=== PATIENT | female | born 1960 | race Caucasian/White ===

== ENCOUNTER 2022-04-28 11:34 | Inpatient (IN) ==
[2022-04-28 12:15] LABS: Basophils # (auto) 0.03 K/uL (0-0.2); Basophils % (auto) 0.5 %; Eosinophils # (auto) 0.06 K/uL (0-0.50); Eosinophils % (auto) 1.1 %; Hematocrit (blood only) 39.2 % (34.1-44.9); Hemoglobin 12.8 g/dl (12.0-16.0); Immature Granulocytes # (auto) 0.01 K/uL (0.00-0.02); Immature Granulocytes % (auto) 0.2 %; Lymphocytes # (auto) 0.74 K/uL (1.2-3.4); Lymphocytes % (auto) 13.3 %; Mean Corpuscular Hemoglobin 32.2 pg (25.0-34.0); Mean Corpuscular Hgb Conc 32.7 g/dL (32.0-36.0); Mean Corpuscular Volume 98.7 fL (80.0-100.0); Mean Platelet Volume 9.6 fL (9.4-12.3); Monocytes # (auto) 0.48 K/uL (0.24-0.82); Monocytes % (auto) 8.6 %; Neutrophils # (auto) 4.23 K/uL (1.4-6.5); Neutrophils % (auto) 76.3 %; Platelet Count 275 K/uL (130-400); RDW Coefficient of Variation 12.9 % (11.5-14.5); RDW Standard Deviation 46.9 fL (36.4-46.3); Red Blood Count 3.97 M/uL (3.93-5.22); White Blood Count 5.55 K/ul (4.8-10.8)
[2022-04-28 12:47] LABS: Alanine Aminotransferase 17 U/L (7-52); Albumin Globulin Ratio 1.5 (0.9-2); Albumin Level 3.9 gm/dl (3.4-5.0); Alkaline Phosphatase 62 U/L (34-104); Anion Gap 9 (3-11); Aspartate Aminotransferase 24 U/L (13-39); BUN Creatinine Ratio 16.2 (10-20); Bilirubin,Total 0.8 mg/dl (0.2-1.0); Blood Urea Nitrogen 12 mg/dl (6-23); Calcium 9.3 mg/dl (8.5-10.1); Carbon Dioxide 28 mmol/L (21-32); Chloride 109 mmol/L (98-107); Est GFR (African American) 99.9 ml/min; Est GFR (Non-African American) 86.2 ml/min; Globulin 2.6 gm/dl (2.5-4.0); Glucose 100 mg/dl (70-99(Fasting)); Potassium 3.4 mmol/L (3.5-5.1); Sodium 146 mmol/L (136-145); Total Protein 6.5 gm/dl (6.0-8.3)
--- NOTE | 2022-04-28 14:26 | Emergency Department Note ---
Impression & Plan Bilateral leg weakness, Bilateral leg pain, Ambulatory dysfunction, UTI (urinary tract infection) ED Provider Note INFORMANT: Patient ED PROVIDER(S): Valentino Saxena MD CHIEF COMPLAINT: Leg pain difficulty ambulating PLAN: Disposition: Admitted Condition: Good Outpatient prescription management: none Referral: None MEDICAL DECISION MAKING: Patient presented back to the term because leg pain, weakness and difficulty walking. She did not have any back pain or abdominal pain. She was here yesterday and that visit was reviewed. A work-up was initiated. Her CBC and chemistry panels were remarkable. LFTs and troponin were unremarkable as well. Troponin was decreased from yesterday. Her ECG did not show any significant changes compared to yesterday. She still had poor R wave progression. The patient's urinalysis was concerning for infection. Ultrasound imaging of the le gs did not reveal any evidence of DVT or other significant pathology. The patient was treated with oral [place] initially. She was reevaluated and noted that she was feeling somewhat better. I did have the patient undergo an ambulatory trial and it took 2 nurses to help her and get her up out of bed. She was barely able to complete the ambulatory trial. The patient does not feel comfortable going home and with her difficulty ambulating, UTI, and her leg pain I believe it is reasonable for further management in the hospital. Consultation was made with the [facility] Hospitalist service. Patient was given a dose of IV Rocephin. Patient was evaluated in the ER and admitted for further management Triage Nursing notes reviewed and agree them. Vital Signs: reviewed and remarkable for hypertension Differential diagnosis: Infection, dehydration, metabolic abnormality, hypo/hyperglycemia, electrolyte disturbance, anemia, hypoxia, cardiac sources, intracerebral event, toxicologic, neurologic, as well as other pathologies. Diagnostics interpreted by me: ECG: Twelve-lead ECG reveals normal sinus rhythm at 80 bpm. Left axis deviation. LVH. Lateral Q waves present. Poor R wave progression. No ST elevation. Cardiac Monitoring: Cardiac monitoring ordered by me: The patient was placed on continuous cardiac monitoring and observed. It revealed a normal sinus rhythm at 71 beats per minute without ectopy or evidence of dysrhythmia. Imaging studies: Ultrasound imaging negative for acute process. I refer you to the EMR for furth er details. HPI: The patient is a 61 year old female who presents to the Emergency Room with complaints of bilateral leg pain. This started today and is described as the whole leg. The patient also notes the following associated symptoms, chronic knee pain, foot numbness(bilat). The patient has taken no medication for relieving factors. Current pain is rated as 8/10. Pt in ED yesterday and notes was discharged. She had a fall yesterday. Not sure if she passed out. Notes that she was shakey and swelling. Pt denies LOC, headache, fevers, chills, visual changes, neck pain, chest pain, breathing difficulties, nausea, vomiting, abdominal pain, back pain, melena, hematochezia, urinary symptoms, lymphadenopathy, rash, or other complaints. ROS: See above HPI for pertinent positives & negatives. A total of 10 systems re viewed and were otherwise negative. PAST MEDICAL HISTORY:See Below , osteoarthritis, anxiety PAST SURGICAL HISTORY:See Below, FAMILY HISTORY:See Below SOCIAL HISTORY:See Below, uses marijuana HOME MEDICATIONS:See Below ALLERGIES:See Below VITALS:See Below PHYSICAL EXAMINATION: GENERAL: Awake, alert, mildly uncomfortable-appearing, in no distress HENT: Normocephalic, atraumatic. Oropharynx unremarkable. EYES: Normal conjunctiva. Sclera non-icteric. NECK: Inspection normal. Non-tender. Supple. No nuchal rigidity. FROM. No masses. RESPIRATORY: Clear to auscultation. No wheezes. No rales. Normal respiratory effort. CARDIAC: Normal rate. Normal rhythm. No murmurs. No rubs. Extremities warm and well perfused. Pulses equal. No JVD. GI: Soft, non-distended. No tenderness to palpation. No rebound or guarding. No masses. RECTAL: Deferred. MUSCULOSKELETAL: Atraumatic. Chest examination reveals no tenderness. The back is symmetrical on inspection without obvious abnormality. There is no CVA tenderness to palpation. No joint edema. LOWER EXTREMITIES: Calves are equal size bilaterally and non-tender. No edema. No discoloration. NEURO: Normal sensorium. Decreased sensation in both feet, stocking distribution. No other sensory or motor deficits noted. SKIN: No rash or jaundice noted. Valentino Saxena MD Past Med/Surg History Medical History (Updated 04/28/22 @ 20:52 by Valentino Saxena MD) Chronic joint pain DJD (degenerative joint disease) Leg swelling Obesity Surgical History History of Family History Other Asthma Coronary heart disease Social History Smoking Status: Never smoker Hx Alcohol Use: Yes Hx Substance Use: No Feels Safe at Home: Yes Allergies Allergies Allergy/AdvReac Type Severity Reaction Status Date / Time No Known Allergies Allergy Unverified 04/28/22 15:38 Home Meds Home Medications Medication Instructions Recorded Confirmed Medical Marijuana 1 inh inhalation USEASDIRECTD PRN 04/28/22 04/28/22 Anxiety acetaminophen 325 mg tablet 650 mg PO QID PRN Pain 04/28/22 04/28/22 cholecalciferol (vitamin D3) 10 10 mcg PO QAM 04/28/22 04/28/22 mcg (400 unit) capsule (Vitamin D3) multivitamin 1 tab PO QAM 04/28/22 04/28/22 naproxen 250 mg tablet 500 mg PO BID PRN Pain 04/28/22 04/28/22 omega 0-lry-dvv-fish oil 60 mg-90 1 cap PO QAM 04/28/22 04/28/22 mg-500 mg capsule (Fish Oil) Results & Data (ED) Vital Signs Vital Signs - 24 hr 04/28/22 11:37 04/28/22 13:00 04/28/22 15:00 Temperature 36.5 C Temperature Source Temporal Artery Scan Pulse Rate 94 H Pulse Rate [Finger] 78 Respiratory Rate 18 18 18 Respiratory Effort / Characteristics Non-Labored Respiratory Depth Normal Normal Respiratory Pattern Regular Blood Pressure 130/74 Blood Pressure [Right Arm] 144/72 H 166/91 H Blood Pressure Mean 92 Blood Pressure Mean [Right Arm] 96 116 Blood Pressure Position [Right Arm] Lying Pulse Oximetry 95 98 95 Oxygen Delivery Method Room Air Room Air Room Air Sepsis Recent Fever Within 48 Hours No Sepsis New/Unexplained Change in Mental Status No Sepsis Action Taken by Nursing No Action Required 04/28/22 17:00 04/28/22 19:00 04/28/22 20:42 Temperature Temperature Source Pulse Rate Pulse Rate [Finger] 75 80 71 Respiratory Rate 18 18 18 Respiratory Effort / Characteristics Non-Labored Respiratory Depth Normal Respiratory Pattern Regular Blood Pressure Blood Pressure [Right Arm] 169/88 H 159/111 H 182/87 H Blood Pressure Mean Blood Pressure Mean [Right Arm] 115 127 118 Blood Pressure Position [Right Arm] Pulse Oximetry 99 95 95 Oxygen Delivery Method Room Air Room Air Room Air Sepsis Recent Fever Within 48 Hours Sepsis New/Unexplained Change in Mental Status Sepsis Action Taken by Nursing Laboratory Data Result diagrams: 04/28/22 12:04/28/22 12:05 Lab Results 04/28/22 04/28/22 04/28/22 Range/Units 12: 12: 12: WBC 5.55 (4.8-10.8) K/ul RBC 3.97 (3.93-5.22) M/uL Hgb 12.8 (12.0-16.0) g/dl Hct 39.2 (34.1-44.9) % MCV 98.7 (80.0-100.0) fL MCH 32.2 (25.0-34.0) pg MCHC 32.7 (32.0-36.0) g/dL RDW Std Deviation 46.9 H (36.4-46.3) fL RDW Coeff of Da 12.9 (11.5-14.5) % Plt Count 275 (130-400) K/uL MPV 9.6 (9.4-12.3) fL Immature Gran % (Auto) 0.2 % Neut % (Auto) 76.3 % Lymph % (Auto) 13.3 % [place] % (Auto) 8.6 % Eos % (Auto) 1.1 % Baso % (Auto) 0.5 % Neut # (Auto) 4.23 (1.4-6.5) K/uL Lymph # (Auto) 0.74 L (1.2-3.4) K/uL [place] # (Auto) 0.48 (0.24-0.82) K/uL Eos # (Auto) 0.06 (0-0.50) K/uL Baso # (Auto) 0.03 (0-0.2) K/uL Immature Gran # (Auto) 0.01 (0.00-0.02) K/uL Sodium 146 H (136-145) mmol/L Potassium 3.4 L (3.5-5.1) mmol/L Chloride 109 H (98-107) mmol/L Carbon Dioxide 28 (21-32) mmol/L Anion Gap 9 (3-11) BUN 12 (6-23) mg/dl Creatinine 0.74 (0.6-1.2) mg/dl Est Cr Clr Drug Dosing Not Reportable Est GFR ( Amer) 99.9 ml/min Est GFR (Non-Af Amer) 86.2 ml/min BUN/Creatinine Ratio 16.2 (10-20) Glucose 100 H (70-99(Fasting)) mg/dl Calcium 9.3 (8.5-10.1) mg/dl Total Bilirubin 0.8 (0.2-1.0) mg/dl AST 24 (13-39) U/L ALT 17 (7-52) U/L Alkaline Phosphatase 62 (34-104) U/L Troponin I High Sens 15.9 H D (0-14) pg/ml Total Protein 6.5 (6.0-8.3) gm/dl Albumin 3.9 (3.4-5.0) gm/dl Globulin 2.6 (2.5-4.0) gm/dl Albumin/Globulin Ratio 1.5 (0.9-2) Urine Color Urine Appearance (Clear) Urine pH (4.5-7.5) Ur Specific [place] (1.000-1.030) Urine Protein (Negative) Urine Glucose (UA) (Negative) Urine Ketones (Negative) Urine Blood (Negative) Urine Nitrite (Negative) Urine Bilirubin (Negative) Urine Urobilinogen (Negative) Ur Leukocyte Esterase (Negative) Urine WBC (Auto) (0-5) /hpf Urine RBC (Auto) (0-4) /hpf U Hyaline Cast (Auto) (0-5) /lpf U Epithel Cells (Auto) (0-5) /lpf Urine Bacteria (Auto) (Negative) 04/28/22 Range/Units 15:22 WBC (4.8-10.8) K/ul RBC (3.93-5.22) M/uL Hgb (12.0-16.0) g/dl Hct (34.1-44.9) % MCV (80.0-100.0) fL MCH (25.0-34.0) pg MCHC (32.0-36.0) g/dL RDW Std Deviation (36.4-46.3) fL RDW Coeff of Da (11.5-14.5) % Plt Count (130-400) K/uL MPV (9.4-12.3) fL Immature Gran % (Auto) % Neut % (Auto) % Lymph % (Auto) % [place] % (Auto) % Eos % (Auto) % Baso % (Auto) % Neut # (Auto) (1.4-6.5) K/uL Lymph # (Auto) (1.2-3.4) K/uL [place] # (Auto) (0.24-0.82) K/uL Eos # (Auto) (0-0.50) K/uL Baso # (Auto) (0-0.2) K/uL Immature Gran # (Auto) (0.00-0.02) K/uL Sodium (136-145) mmol/L Potassium (3.5-5.1) mmol/L Chloride (98-107) mmol/L Carbon Dioxide (21-32) mmol/L Anion Gap (3-11) BUN (6-23) mg/dl Creatinine (0.6-1.2) mg/dl Est Cr Clr Drug Dosing Est GFR ( Amer) ml/min Est GFR (Non-Af Amer) ml/min BUN/Creatinine Ratio (10-20) Glucose (70-99(Fasting)) mg/dl Calcium (8.5-10.1) mg/dl Total Bilirubin (0.2-1.0) mg/dl AST (13-39) U/L ALT (7-52) U/L Alkaline Phosphatase (34-104) U/L Troponin I High Sens (0-14) pg/ml Total Protein (6.0-8.3) gm/dl Albumin (3.4-5.0) gm/dl Globulin (2.5-4.0) gm/dl Albumin/Globulin Ratio (0.9-2) Urine Color Yellow Urine Appearance Cloudy A (Clear) Urine pH 7.0 (4.5-7.5) Ur Specific [place] 1.027 (1.000-1.030) Urine Protein 1+ H (Negative) Urine Glucose (UA) Negative (Negative) Urine Ketones 2+ H (Negative) Urine Blood 2+ H (Negative) Urine Nitrite Positive A (Negative) Urine Bilirubin Negative (Negative) Urine Urobilinogen Negative (Negative) Ur Leukocyte Esterase 3+ H (Negative) Urine WBC (Auto) >30 H (0-5) /hpf Urine RBC (Auto) 10-30 H (0-4) /hpf U Hyaline Cast (Auto) 10-30 H (0-5) /lpf U Epithel Cells (Auto) >30 H (0-5) /lpf Urine Bacteria (Auto) 4+ H (Negative) Administered Medications Discontinued Medications Hydrocodone Bitart/Acetaminophen (Hydrocodone/Acetamophen 5/325mg Tab) 1 tab PO NOW STA Stop: 04/28/22 14:33 Last Admin: 04/28/22 14:52 Dose: 1 tab Documented By: AC Ceftriaxone Sodium (Rocephin) 2,000 mg in 70 mls @ 140 mls/hr IV NOW STA Stop: 04/28/22 18:12 Last Infusion: 04/28/22 18:47 Dose: 0 mls/hr Documented By: Admin: 04/28/22 18:11 Dose: 140 mls/hr Documented By: AC Imaging Data Radiologist's Impression: Venous Doppler Study 04/28/22 14:32 ULTRASOUND BILATERAL LOWER EXTREMITY VENOUS CLINICAL HISTORY: Leg pain. COMPARISON STUDY: No priors. TECHNIQUE: Real-time, grayscale, and color Doppler sonography of the deep veins of the right and left lower extremity was performed from the inguinal crease to the calf. Compression and augmentation were utilized. FINDINGS: There is no sonographic evidence of deep venous thrombosis identified in the right or left lower extremity. The common femoral, superficial femoral, and popliteal veins are patent and normally compressible bilaterally. The greater saphenous vein and the profunda femoris vein at the junction with the common femoral vein are clear in both legs. The visualized calf veins are patent bilaterally. Soft tissue edema is present within the calves. IMPRESSION: There is no sonographic evidence of deep venous thrombosis identified in the right or left lower extremity. ACT 112: Negative or not required by law. Electronically signed by: Chris Ybarra M.D. 04/28/2022 4:22 PM Discharge Plan Visit Data Chief Complaint: Leg Weakness, Bilateral Stated Complaint: BILATERAL LEG NUMBNESS,PAIN,WEAKNESS ED Provider: Valentino Saxena Discharge Problem: Bilateral leg weakness, Bilateral leg pain, Ambulatory dysfunction, UTI (urinary tract infection) Forms Stand Alone Forms: My [email or web address] Prescriptions Prescriptions: No Action multivitamin Tablet 1 tab PO QAM acetaminophen 325 mg Tablet 650 mg PO QID PRN (Reason: Pain) naproxen 250 mg Tablet 500 mg PO BID PRN (Reason: Pain) cholecalciferol (vitamin D3) [Vitamin D3] 10 mcg (400 unit) Capsule 10 mcg PO QAM omega 3-cpg-qsz-fish oil [Fish Oil] 60-90-500 mg Capsule 1 cap PO QAM Medical Marijuana 1 inh inhalation USEASDIRECTD PRN (Reason: Anxiety) Referrals Referrals: PCP,NO [Primary Care Provider] -
[2022-04-28] MEDS ORDERED: HYDROCODONE/ACETAMOPHEN 5/325MG TAB PO STA (14:32)
--- NOTE | 2022-04-28 16:24 | Ultrasound Report ---
ULTRASOUND BILATERAL LOWER EXTREMITY VENOUS CLINICAL HISTORY: Leg pain. COMPARISON STUDY: No priors. TECHNIQUE: Real-time, grayscale, and color Doppler sonography of the deep veins of the right and left lower extremity was performed from the inguinal crease to the calf. Compression and augmentation wer e utilized. FINDINGS: There is no sonographic evidence of deep venous thrombosis identified in the right or left lower extremity. The common femoral, superficial femoral, and popliteal veins are patent and normally compressible bilaterally. The greater saphenous vein and the profunda femoris vein at the junction w ith the common femoral vein are clear in both legs. The visualized calf veins are patent bilaterally. Soft tissue edema is present within the calves. IMPRESSION: There is no sonographic evidence of deep venous thrombosis identified in the right or lef t lower extremity. ACT 112: Negative or not required by law. Electronically signed by: Chris Ybarra M.D. 04/28/2022 4:22 PM
[2022-04-28 17:14] LABS: Appearance Urine Cloudy (Clear); Bacteria Urine Automated 4+ (Negative); Bilirubin Urine Negative (Negative); Blood Urine 2+ (Negative); Color Urine Yellow; Epithelial Cell Urine Auto >30 /lpf (0-5); Glucose Urine UA Negative (Negative); Ketones Urine 2+ (Negative); Leukocyte Esterase Urine 3+ (Negative); Nitrite Urine Positive (Negative); Protein Urine 1+ (Negative); Specific Gravity Urine 1.027 (1.000-1.030); Urobilinogen Urine Negative (Negative); WBC Urine Automated >30 /hpf (0-5)
[2022-04-28] MEDS ORDERED: cefTRIAXone SODIUM 2,000 MG/70 ML BAG IV STA (17:43)
--- NOTE | 2022-04-28 19:37 | History & Physical Report ---
Date of Service April 28, 2022 Assessment & Plan (1) Fall: (2) Ambulatory dysfunction: (3) Chronic right hip pain: (4) Leg swelling: (5) UTI (urinary tract infection): (6) Elevated troponin: (7) DJD (degenerative joint disease): Plan Fall with ambulatory dysfunction: -2/2 severe DJD - Since pts recent Hip xray showed evidence of R hip osteonecrosis ---- will get CT hip and Ortho consult ----denied any hx of chronic steroid use or IVDU ---- will get A1C -PT/OT eval -continue prn Tylenol and naproxen with prn oxycodone 5mg q6hr for pain scale >6 Chronic leg swelling: -severe pitting edema on exam - Doppler neg for DVT -due to 2 falls + elevated trop + leg swelling will get an echo -started the pt on Lasix 10mg daily (PO) ---- will monitor K+ and Cr Elevated trop: -EKG: NSR, Left axis deviation -trop is better today than yesterday -denied any CP or SOB -admit to tele and will obtain Echo UTI: -will do ceftriaxone -UCx sent Diet: Heart healthy DVT PPx: Lovenox Code Status: FULL CODE Emergency Contact: : Benny [phone] History of Present Illness Chief Complaint: joint pain and fall Primary Care Provider: NO PCP Pt is a 61 y/o F with hx of severe DJD, obesity, b/l Leg swelling, chronic joint pain came to the ER with worsening L knee and R hip pain. Per pt she had 2 mechanical falls yesterday and 2 days ago. Denied any LOC or head trauma. She stated that her L leg gave out. She uses walker to ambulate and recently she is having difficulty ambulating due to pain. She takes naproxen, Tylenol and medical marijuana for pain. Denied any acute CP or SOB. Does have chronic leg swelling which is recently worsened. Denied any hx of ME or CVA. She had a visit with Rheum 3 months ago. At that time Hip xray showed R hip osteonecrosis. Have not seen an ortho yet but sched to follow up with Holcomb Nguyễn @ [facility] HIP xray from 01/2022: 1. Severe right hip degenerative change and evidence of osteonecrosis. Orthopedic consultation is recommended if not already performed. 2. Unremarkable left hip. 3. No acute fracture Allergies Allergy/AdvReac Type Severity Reaction Status Date / Time No Known Allergies Allergy Unverified 04/28/22 15:38 Home Medications Medication Instructions Recorded Confirmed Type Medical Marijuana 1 inh inhalation USEASDIRECTD PRN 04/28/22 04/28/22 History Anxiety acetaminophen 325 mg tablet 650 mg PO QID PRN Pain 04/28/22 04/28/22 History cholecalciferol (vitamin D3) 10 10 mcg PO QAM 04/28/22 04/28/22 History mcg (400 unit) capsule (Vitamin D3) multivitamin 1 tab PO QAM 04/28/22 04/28/22 History naproxen 250 mg tablet 500 mg PO BID PRN Pain 04/28/22 04/28/22 History omega 1-tdr-ezg-fish oil 60 mg-90 1 cap PO QAM 04/28/22 04/28/22 History mg-500 mg capsule (Fish Oil) Past Med/Surg History Medical History (Updated 04/28/22 @ 19:42 by Mauri Ontiveros MD) Chronic joint pain DJD (degenerative joint disease) Leg swelling Obesity Surgical History History of Family History Other Asthma Coronary heart disease Social History Smoking Status: Never smoker Hx Alcohol Use: Yes Hx Substance Use: No Feels Safe at Home: Yes Review of Systems Review of Systems: At least 10 Review of systems were reviewed and all negative except as indicated in HPI Physical Exam Physical Exam: General:.obese pt, NAD HEENT:. Normocephalic and atraumatic, Normal Conjunctiva, EOMI, Sclera is non- icteric Lungs:. No signs of respiratory distress, CTA, no wheezing or crackles Heart:. Normal S1, S2, no murmur Abdominal:.obese abd, Soft, NT MSK:.severe b/l LE pitting edema, pain with b/l hips and legs movement Psych:. AAOx3, normal affect Results & Data Results & Data ([facility]) Vital Signs (Past 12 Hours) Vital Signs Temp Pulse Pulse Resp BP BP Pulse Ox 04/28/22 19:00 80 18 159/111 H 95 04/28/22 17:00 75 18 169/88 H 99 04/28/22 15:00 78 18 166/91 H 95 04/28/22 13:00 18 144/72 H 98 04/28/22 11:37 36.5 C 94 H 18 130/74 95 O2 Del Method 04/28/22 19:00 Room Air 04/28/22 17:00 Room Air 04/28/22 15:00 Room Air 04/28/22 13:00 Room Air 04/28/22 11:37 Room Air Laboratory Results Short CBC 04/28/22 Range/Units 12:05 WBC 5.55 (4.8-10.8) K/ul Hgb 12.8 (12.0-16.0) g/dl Hct 39.2 (34.1-44.9) % Plt Count 275 (130-400) K/uL BMP 04/28/22 12:05 Sodium 146 H Potassium 3.4 L Chloride 109 H Carbon Dioxide 28 BUN 12 Creatinine 0.74 Glucose 100 H Calcium 9.3 Liver Function 04/28/22 Range/Units 12:05 Total Bilirubin 0.8 (0.2-1.0) mg/dl AST 24 (13-39) U/L ALT 17 (7-52) U/L Alkaline Phosphatase 62 (34-104) U/L Albumin 3.9 (3.4-5.0) gm/dl Urine 04/28/22 Range/Units 15:22 Urine Color Yellow Urine Appearance Cloudy A (Clear) Urine pH 7.0 (4.5-7.5) Ur Specific [place] 1.027 (1.000-1.030) Urine Protein 1+ H (Negative) Urine Glucose (UA) Negative (Negative) Diagnostic Findings Venous Doppler Study 04/28/22 14:32 ULTRASOUND BILATERAL LOWER EXTREMITY VENOUS CLINICAL HISTORY: Leg pain. COMPARISON STUDY: No priors. TECHNIQUE: Real-time, grayscale, and color Doppler sonography of the deep veins of the right and left lower extremity was performed from the inguinal crease to the calf. Compression and augmentation were utilized. FINDINGS: There is no sonographic evidence of deep venous thrombosis identified in the right or left lower extremity. The common femoral, superficial femoral, and popliteal veins are patent and normally compressible bilaterally. The greater saphenous vein and the profunda femoris vein at the junction with the common femoral vein are clear in both legs. The visualized calf veins are patent bilaterally. Soft tissue edema is present within the calves. IMPRESSION: There is no sonographic evidence of deep venous thrombosis identified in the right or left lower extremity. ACT 112: Negative or not required by law. Electronically signed by: Chris Ybarra M.D. 04/28/2022 4:22 PM Code Status & VTE Plan VTE Prophylaxis Plan VTE Prophylaxis will be ordered: Yes
[2022-04-28] MEDS ORDERED: oxyCODONE HCL IR 5 MG TAB (IMMEDIATE RELEASE) PO PRN (22:07)
[2022-04-28] MEDS ORDERED: ACETAMINOPHEN 325 MG TAB PO PRN (22:07)
[2022-04-28] MEDS: ENOXAPARIN INJ 40 MG/0.4 ML SYR SQ SCH (22:56)
--- NOTE | 2022-04-28 23:53 | CT Scan Report ---
CT SCAN OF THE RIGHT HIP WITHOUT IV CONTOUR CLINICAL HISTORY: Right hip pain. COMPARISON STUDY: Pelvic CT dated 04/27/2022. TECHNIQUE: CT scan of the right hip is performed to the bony pelvis to be femoral shaft. Images are reviewed in the axial, sagittal, and coronal planes. IV contrast was not administered for this examin ation. A dose lowering technique was utilized adhering to the principles of ALARA. Note that interpr etation is suboptimal without plain film correlate. CT DOSE: 1083.48 mGy.cm FINDINGS: The skeletal structures are osteopenic. There is no evidence of acute fracture involving th e right hip or the visualized right hemipelvis. There is advanced osteoarthritic change of the right hip with complete loss of joint space, bony overgrowth, and mild flattening of the femoral head. Ther e is extensive bony sclerosis and subchondral cyst formation along both sides of the joint. No signif icant joint effusion is seen. There is no evidence of avascular sclerosis of the femoral head. No lyt ic or blastic lesion is seen. Sclerotic change is partially visualized in the right sacroiliac joint. There is generalized atrophy of the regional musculature. No right pelvic sidewall or inguinal adeno cecilia is seen. Excreted IV contrast fills the partially imaged bladder. IMPRESSION: 1. No acute bony abnormality is identified. No change from yesterday's pelvic CT. 2. Osteopenia and advanced arthritic change of the right hip as above. ACT 112: Negative or not required by law. Electronically signed by: Chris Ybarra M.D. 04/28/2022 11:50 PM
[2022-04-29 06:49] LABS: Basophils # (auto) 0.03 K/uL (0-0.2); Basophils % (auto) 0.5 %; Eosinophils # (auto) 0.41 K/uL (0-0.50); Eosinophils % (auto) 6.9 %; Hematocrit (blood only) 34.7 % (34.1-44.9); Hemoglobin 11.2 g/dl (12.0-16.0); Immature Granulocytes # (auto) 0.01 K/uL (0.00-0.02); Immature Granulocytes % (auto) 0.2 %; Lymphocytes # (auto) 1.05 K/uL (1.2-3.4); Lymphocytes % (auto) 17.7 %; Mean Corpuscular Hemoglobin 31.9 pg (25.0-34.0); Mean Corpuscular Hgb Conc 32.3 g/dL (32.0-36.0); Mean Corpuscular Volume 98.9 fL (80.0-100.0); Mean Platelet Volume 9.8 fL (9.4-12.3); Monocytes # (auto) 0.67 K/uL (0.24-0.82); Monocytes % (auto) 11.3 %; Neutrophils # (auto) 3.76 K/uL (1.4-6.5); Neutrophils % (auto) 63.4 %; Platelet Count 235 K/uL (130-400); RDW Standard Deviation 46.9 fL (36.4-46.3); Red Blood Count 3.51 M/uL (3.93-5.22); White Blood Count 5.93 K/ul (4.8-10.8)
[2022-04-29 07:15] LABS: Albumin Globulin Ratio 1.4 (0.9-2); Albumin Level 3.2 gm/dl (3.4-5.0); Bilirubin,Total 0.5 mg/dl (0.2-1.0); Calcium 8.6 mg/dl (8.5-10.1); Est GFR (African American) 113.7 ml/min; Est GFR (Non-African American) 98.1 ml/min; Globulin 2.3 gm/dl (2.5-4.0); Potassium 3.1 mmol/L (3.5-5.1); Total Protein 5.5 gm/dl (6.0-8.3)
[2022-04-29] MEDS: CHOLECALCIFEROL 1,000 UNITS 25 MCG TAB PO SCH (08:04)
[2022-04-29] MEDS: OMEGA-3 (PURIFIED FISH OIL) 1 GM CAP PO SCH (08:04)
[2022-04-29] MEDS: NAPROXEN 250 MG TAB PO PRN (08:06)
[2022-04-29] MEDS: MULTIVITAMIN TAB PO SCH (08:06)
[2022-04-29] MEDS ORDERED: FUROSEMIDE 20 MG TAB PO SCH (09:00)
--- NOTE | 2022-04-29 10:40 | Orthopedic Consultation ---
Date of Consultation April 29, 2022 Assessment & Plan (1) Chronic right hip pain: Plan Pain control Weightbearing as tolerated right lower extremity PT/OT DVT prophylaxis per primary team Medical management Discharge planning. I did have a discussion with the patient regarding her severe hip degenerative joint disease. I discussed with her conservative treatment options including activity modification, therapy as well as medications. I discussed with her that likely a total hip arthroplasty would provide her with relief at some point time. However due to her morbid obesity she is at extremely high risk for complication. She is in understanding of this. I would otherwise recommend referral for follow-up at a tertiary care institution given her morbid obesity and high risk for complication. No further orthopedic intervention at this time. We will sign off History of Present Illness Reason for Consultation: Right hip osteoarthritis Attending Physician: Alberto Pickens MD History of Present Illness 61-year-old female presenting with a chief complaint of right lower extremity pain after sustaining a fall. She notes that she has had an ongoing history of right hip and groin pain. She has previously seen rheumatology who instructed her that she has arthritis and needs to follow-up with orthopedics. She did have a CT scan of the hip obtained in the emergency department which does show severe osteoarthritis of her hip and some changes compatible with avascular necrosis. She also complains of right lower extremity pain and had imaging completed for DVT which was negative. She was admitted to medical service for ambulatory dysfunction and orthopedics was consulted. Allergies Allergy/AdvReac Type Severity Reaction Status Date / Time No Known Allergies Allergy Unverified 04/28/22 15:38 Home Medications Medication Instructions Recorded Confirmed Type Medical Marijuana 1 inh inhalation USEASDIRECTD PRN 04/28/22 04/28/22 History Anxiety acetaminophen 325 mg tablet 650 mg PO QID PRN Pain 04/28/22 04/28/22 History cholecalciferol (vitamin D3) 10 10 mcg PO QAM 04/28/22 04/28/22 History mcg (400 unit) capsule (Vitamin D3) multivitamin 1 tab PO QAM 04/28/22 04/28/22 History naproxen 250 mg tablet 500 mg PO BID PRN Pain 04/28/22 04/28/22 History omega 5-vqd-wxm-fish oil 60 mg-90 1 cap PO QAM 04/28/22 04/28/22 History mg-500 mg capsule (Fish Oil) Patient History Medical History (Updated 04/28/22 @ 20:52 by Valentino Saxena MD) Chronic joint pain DJD (degenerative joint disease) Leg swelling Obesity Surgical History History of Family History Other Asthma Coronary heart disease Social History Smoking Status: Never smoker Hx Alcohol Use: Yes Alcohol type: hard liquor Hx Substance Use: Yes Last Used Substance: Hours (ago) Preferred Language: Danish Communication Ability: Effective Sales Promoter Required: No Beliefs That Will Affect Care: None Current Living Situation: Spouse and Family Current Living Situation Comment: , Daughter, Son in Law Other Information That Helps Us Care for You: No Feels Safe at Home: Yes Safety Concerns: Feels Safe At This Time Assistive Devices: Contacts and Glasses Physical Exam Physical Exam: No acute distress, alert and oriented person place and time. Resting in bed Musculoskeletal: Right lower extremity -There is groin pain and crepitation with range of motion. -Sensation intact to light touch femoral/saphenous/superficial peroneal nerve/deep peroneal nerve/tibial and sural nerve distributions -Fires tibialis anterior/extensor houses longus/gastrocsoleus complex -There is some tenderness over the calf Palpable dorsalis pedis and posterior tibial pulses Results & Data ([facility]) Vital Signs (Past 12 Hours) Vital Signs Temp Pulse Pulse Resp BP Pulse Ox O2 Del Method 04/29/22 07:18 65 04/29/22 06:36 36.6 C 70 20 157/87 H 96 Room Air 04/29/22 02:25 36.4 C L 77 18 150/85 H 93 Room Air 04/28/22 22:49 36.6 C 81 18 144/79 H 93 Room Air Diagnostic Findings CT scan of the right hip shows severe degenerative joint disease there is subchondral sclerosis joint subluxation as well as subchondral cyst formation. No evidence of fracture
--- NOTE | 2022-04-29 11:13 | Electrocardiogram Report ---
Test Reason : Blood Pressure : / mmHG Vent. Rate : 088 BPM Atrial Rate : 088 BPM P-R Int : 186 ms QRS Dur : 090 ms QT Int : 354 ms P-R-T Axes : 027 -43 022 degrees QTc Int : 428 ms Poor data quality, interpretation may be adversely affected Normal sinus rhythm Left axis deviation Moderate voltage criteria for LVH, may be normal variant Poor R wave progression, consider anterior [place] vs. lead placement vs. LVH Abnormal ECG When compared with ECG of 27-APR-2022 17:55, Minimal criteria for Septal infarct are no longer Present Confirmed by Wicho Reese ([id number]) on 04/29/2022 11:13:32 AM Referred By: REFERRED SELF Confirmed By:Wicho Reese
[2022-04-29] MEDS: ENOXAPARIN INJ 40 MG/0.4 ML SYR SQ SCH ×2 (11:47→22:14)
[2022-04-29] MEDS: traMADol HCL 50 MG TABLET PO PRN (11:53)
--- NOTE | 2022-04-29 12:16 | Hospitalist Progress Note ---
Date of Service April 29, 2022 Assessment & Plan (1) Fall: (2) Ambulatory dysfunction: (3) Chronic right hip pain: (4) Leg swelling: (5) UTI (urinary tract infection): (6) Elevated troponin: (7) DJD (degenerative joint disease): Plan Fall with ambulatory dysfunction: Severe right hip osteoarthritis Patient presented to ED on 04/27/2022 with evaluation for back and hip pain after a fall. Discharged from the emergency department but returned back on 04/28/2022 because of leg pain, weakness and difficulty walking CT head did not show any acute abnormality CT abdomen and pelvis unremarkable for acute findings Hip CT shows osteopenia and advance arthritic change of right hip Plan; Orthopedic evaluate the patient today; she had discussion with them about total hip arthroplasty. However, patient does not want to do any surgery at the moment She has a follow-up at [facility] in May PT OT evaluation pending; patient interested in rehab. Pain control with Tylenol and tramadol. Chronic leg swelling: Elevated trop; no delta gap. severe pitting edema on exam Doppler neg for DVT Echo shows EF of 55 to 60% with no wall motion abnormality. Grade 1 diastolic dysfunction present Started on Lasix on admission UTI: Urine culture shows E. coli; await sensitivity. Currently on ceftriaxone. Diet: Heart healthy DVT PPx: Lovenox Code Status: FULL CODE Admission and Anticipated Discharge Date Admission Date: April 28, 2022 Subjective Patient seen and examined at bedside. She reports pain in her right hip intermittently. Review of Systems Review of Systems: All systems reviewed & are unremarkable except as noted in Subjective Physical Exam Physical Exam: Constitutional: Alert orient x3; morbidly obese. Respiratory: normal respiratory effort, lungs clear to auscultation, no wheeze, rales, rhonchi. Normal insp/exp effort, no accessory muscle use Cardiovascular: RRR, no murmur, no edema Vessels: no JVD or carotid bruit Chest: normal inspection of chest Abdomen: normal bowel sounds, soft, nontender, no hepatosplenomegaly Musculoskeletal: ROM painful on right hip. Skin: no rashes, warm and dry normal turgor Neurologic: PERRL, EOMI, accommodation nl, no face palsy, no dysarthria CN's II- XI intact bilaterally and moves all extremities Psychiatric: A+Ox3, euthymic affect Lymphatic: no cervical or axillary lymphadenopathy : deferred Results & Data Results & Data ([facility]) Vital Signs (Past 12 Hours) Vital Signs Temp Pulse Pulse Resp BP BP Pulse Ox 04/29/22 11:22 36.9 C 76 20 165/88 H 93 04/29/22 07:18 65 04/29/22 06:36 36.6 C 70 20 157/87 H 96 04/29/22 02:25 36.4 C L 77 18 150/85 H 93 O2 Del Method 04/29/22 11:22 Room Air 04/29/22 07:18 04/29/22 06:36 Room Air 04/29/22 02:25 Room Air Laboratory Results Laboratory Results WBC 5.93 K/ul (4.8-10.8) 04/29/22 06:24 RBC 3.51 M/uL (3.93-5.22) L 04/29/22 06:24 Hgb 11.2 g/dl (12.0-16.0) L 04/29/22 06:24 Hct 34.7 % (34.1-44.9) 04/29/22 06:24 MCV 98.9 fL (80.0-100.0) 04/29/22 06:24 MCH 31.9 pg (25.0-34.0) 04/29/22 06:24 MCHC 32.3 g/dL (32.0-36.0) 04/29/22 06:24 RDW Std Deviation 46.9 fL (36.4-46.3) H 04/29/22 06:24 RDW Coeff of Da 13.0 % (11.5-14.5) 04/29/22 06:24 Plt Count 235 K/uL (130-400) 04/29/22 06:24 MPV 9.8 fL (9.4-12.3) 04/29/22 06:24 Immature Gran % (Auto) 0.2 % 04/29/22 06:24 Neut % (Auto) 63.4 % 04/29/22 06:24 Lymph % (Auto) 17.7 % 04/29/22 06:24 [place] % (Auto) 11.3 % 04/29/22 06:24 Eos % (Auto) 6.9 % 04/29/22 06:24 Baso % (Auto) 0.5 % 04/29/22 06:24 Neut # (Auto) 3.76 K/uL (1.4-6.5) 04/29/22 06:24 Lymph # (Auto) 1.05 K/uL (1.2-3.4) L 04/29/22 06:24 [place] # (Auto) 0.67 K/uL (0.24-0.82) 04/29/22 06:24 Eos # (Auto) 0.41 K/uL (0-0.50) 04/29/22 06:24 Baso # (Auto) 0.03 K/uL (0-0.2) 04/29/22 06:24 Immature Gran # (Auto) 0.01 K/uL (0.00-0.02) 04/29/22 06:24 Sodium 144 mmol/L (136-145) 04/29/22 06:24 Potassium 3.1 mmol/L (3.5-5.1) L 04/29/22 06:24 Chloride 110 mmol/L (98-107) H 04/29/22 06:24 Carbon Dioxide 29 mmol/L (21-32) 04/29/22 06:24 Anion Gap 5 (3-11) 04/29/22 06:24 BUN 11 mg/dl (6-23) 04/29/22 06:24 Creatinine 0.58 mg/dl (0.6-1.2) L 04/29/22 06:24 Est Cr Clr Drug Dosing 139.0 ml/min 04/29/22 06:24 Est GFR ( Amer) 113.7 ml/min 04/29/22 06:24 Est GFR (Non-Af Amer) 98.1 ml/min 04/29/22 06:24 BUN/Creatinine Ratio 19.0 (10-20) 04/29/22 06:24 Glucose 105 mg/dl (70-99(Fasting)) H 04/29/22 06:24 Calcium 8.6 mg/dl (8.5-10.1) 04/29/22 06:24 Total Bilirubin 0.5 mg/dl (0.2-1.0) 04/29/22 06:24 AST 20 U/L (13-39) 04/29/22 06:24 ALT 15 U/L (7-52) 04/29/22 06:24 Alkaline Phosphatase 53 U/L (34-104) 04/29/22 06:24 Troponin I High Sens 15.9 pg/ml (0-14) H D 04/28/22 12:05 Total Protein 5.5 gm/dl (6.0-8.3) L 04/29/22 06:24 Albumin 3.2 gm/dl (3.4-5.0) L 04/29/22 06:24 Globulin 2.3 gm/dl (2.5-4.0) L 04/29/22 06:24 Albumin/Globulin Ratio 1.4 (0.9-2) 04/29/22 06:24 Urine Color Yellow 04/28/22 15:22 Urine Appearance Cloudy (Clear) A 04/28/22 15:22 Urine pH 7.0 (4.5-7.5) 04/28/22 15:22 Ur Specific [place] 1.027 (1.000-1.030) 04/28/22 15:22 Urine Protein 1+ (Negative) H 04/28/22 15:22 Urine Glucose (UA) Negative (Negative) 04/28/22 15:22 Urine Ketones 2+ (Negative) H 04/28/22 15:22 Urine Blood 2+ (Negative) H 04/28/22 15:22 Urine Nitrite Positive (Negative) A 04/28/22 15: Urine Bilirubin Negative (Negative) 04/28/22 15:22 Urine Urobilinogen Negative (Negative) 04/28/22 15:22 Ur Leukocyte Esterase 3+ (Negative) H 04/28/22 15:22 Urine WBC (Auto) >30 /hpf (0-5) H 04/28/22 15:22 Urine RBC (Auto) 10-30 /hpf (0-4) H 04/28/22 15:22 U Hyaline Cast (Auto) 10-30 /lpf (0-5) H 04/28/22 15:22 U Epithel Cells (Auto) >30 /lpf (0-5) H 04/28/22 15:22 Urine Bacteria (Auto) 4+ (Negative) H 04/28/22 15:22 Impressions Venous Doppler Study 04/28/22 14:32 ULTRASOUND BILATERAL LOWER EXTREMITY VENOUS CLINICAL HISTORY: Leg pain. COMPARISON STUDY: No priors. TECHNIQUE: Real-time, grayscale, and color Doppler sonography of the deep veins of the right and left lower extremity was performed from the inguinal crease to the calf. Compression and augmentation were utilized. FINDINGS: There is no sonographic evidence of deep venous thrombosis identified in the right or left lower extremity. The common femoral, superficial femoral, and popliteal veins are patent and normally compressible bilaterally. The greater saphenous vein and the profunda femoris vein at the junction with the common femoral vein are clear in both legs. The visualized calf veins are patent bilaterally. Soft tissue edema is present within the calves. IMPRESSION: There is no sonographic evidence of deep venous thrombosis identified in the right or left lower extremity. ACT 112: Negative or not required by law. Electronically signed by: Chris Ybarra M.D. 04/28/2022 4:[address] 04/28/22 22:07 CT SCAN OF THE RIGHT HIP WITHOUT IV CONTOUR CLINICAL HISTORY: Right hip pain. COMPARISON STUDY: Pelvic CT dated 04/27/2022. TECHNIQUE: CT scan of the right hip is performed to the bony pelvis to be femoral shaft. Images are reviewed in the axial, sagittal, and coronal planes. IV contrast was not administered for this examination. A dose lowering technique was utilized adhering to the principles of ALARA. Note that interpretation is suboptimal without plain film correlate. CT DOSE: 1083.48 mGy.cm FINDINGS: The skeletal structures are osteopenic. There is no evidence of acute fracture involving the right hip or the visualized right hemipelvis. There is advanced osteoarthritic change of the right hip with complete loss of joint space, bony overgrowth, and mild flattening of the femoral head. There is extensive bony sclerosis and subchondral cyst formation along both sides of the joint. No significant joint effusion is seen. There is no evidence of avascular sclerosis of the femoral head. No lytic or blastic lesion is seen. Sclerotic change is partially visualized in the right sacroiliac joint. There is generalized atrophy of the regional musculature. No right pelvic sidewall or inguinal adenopathy is seen. Excreted IV contrast fills the partially imaged bladder. IMPRESSION: 1. No acute bony abnormality is identified. No change from yesterday's pelvic CT. 2. Osteopenia and advanced arthritic change of the right hip as above. ACT 112: Negative or not required by law. Electronically signed by: Chris Ybarra M.D. 04/28/2022 11:50 PM
[2022-04-29] MEDS ORDERED: POTASSIUM CHLORIDE CRTAB 20 MEQ TABCR PO ONE (15:15)
[2022-04-29] MEDS: cefTRIAXone SODIUM 2,000 MG in DEXTROSE 5% 50 ML IV SCH (17:54)
[2022-04-29] MEDS: ADVANCED PROBIOTIC 1250 MG CAPSULE PO SCH (21:30)
[2022-04-30] MEDS: traMADol HCL 50 MG TABLET PO PRN ×3 (02:19→20:43)
[2022-04-30 06:50] LABS: Estimated Average Glucose 103 mg/dl; Hemoglobin A1C 5.2 % (4.5-5.6)
[2022-04-30 07:43] LABS: BUN Creatinine Ratio 14.8 (10-20); Calcium 8.8 mg/dl (8.5-10.1); Creatinine Clr Calc Pharmacy 150.3 ml/min; Est GFR (African American) 116.4 ml/min; Est GFR (Non-African American) 100.4 ml/min; Potassium 3.5 mmol/L (3.5-5.1)
[2022-04-30] MEDS: ADVANCED PROBIOTIC 1250 MG CAPSULE PO SCH (07:53)
[2022-04-30] MEDS: POTASSIUM CHLORIDE CRTAB 20 MEQ TABCR PO SCH (07:53)
[2022-04-30] MEDS: FUROSEMIDE 20 MG TAB PO SCH (07:54)
[2022-04-30] MEDS: OMEGA-3 (PURIFIED FISH OIL) 1 GM CAP PO SCH (07:54)
[2022-04-30] MEDS: MULTIVITAMIN TAB PO SCH (07:54)
[2022-04-30] MEDS: CHOLECALCIFEROL 1,000 UNITS 25 MCG TAB PO SCH (07:54)
[2022-04-30] MEDS: ENOXAPARIN INJ 40 MG/0.4 ML SYR SQ SCH ×2 (10:05→22:02)
[2022-04-30] MEDS: cefTRIAXone SODIUM 2,000 MG in DEXTROSE 5% 50 ML IV SCH (17:11)
--- NOTE | 2022-04-30 19:12 | Hospitalist Progress Note ---
Date of Service April 30, 2022 Assessment & Plan (1) Fall: (2) Ambulatory dysfunction: (3) Chronic right hip pain: (4) Leg swelling: (5) UTI (urinary tract infection): (6) Elevated troponin: (7) DJD (degenerative joint disease): Plan Fall with ambulatory dysfunction: Severe right hip osteoarthritis Patient presented to ED on 04/27/2022 with evaluation for back and hip pain after a fall. Discharged from the emergency department but returned back on 04/28/2022 because of leg pain, weakness and difficulty walking CT head did not show any acute abnormality CT abdomen and pelvis unremarkable for acute findings Hip CT shows osteopenia and advance arthritic change of right hip Plan; Orthopedic evaluate the patient today; she had discussion with them about total hip arthroplasty. However, patient does not want to do any surgery at the moment She has a follow-up at [facility] in May PT/ OT recommended rehab or SNF Pain control with Tylenol and tramadol. Continue fall precaution Chronic leg swelling: Elevated trop; no delta gap. severe pitting edema on exam Doppler neg for DVT Echo shows EF of 55 to 60% with no wall motion abnormality. Grade 1 diastolic dysfunction present Continue Lasix 20mg PO Monitor BMP while on lasix Hypertension BP elevated Will start on Amlodipine 2.5 mg Continue monitor BP UTI: Urine culture shows E. coli Currently on ceftriaxone. Will follow sensitivity Diet: Heart healthy DVT PPx: Lovenox Code Status: FULL CODE Admission and Anticipated Discharge Date Admission Date: April 28, 2022 Subjective Pt was seen and examined for follow up of fall Sitting in chair with no acute distress Pt said that she is afraid to walk because she does not want to fall She said that she is very anxious Denies any chest pain, palpitation, dizziness and SOB Review of Systems Review of Systems: All systems reviewed & are unremarkable except as noted in Subjective Physical Exam Physical Exam: General- No acute distress Head- atraumatic Eyes- PERRL, EOMI, ENT- oropharynx clear Neck- supple, no JVD Lungs- clear to auscultation Heart- regular rhythm; no murmur Abdomen- normal bowel sounds, soft, nontender Extremities- no calf tenderness, +edema Neuro- alert, oriented x 3; PERRL, EOMI; no facial palsy; no dysarthria Skin- warm & dry Results & Data Results & Data ([facility]) Vital Signs (Past 12 Hours) Vital Signs Temp Pulse Pulse Resp BP Pulse Ox O2 Del Method 04/30/22 15:59 81 04/30/22 15:03 37.0 C 82 20 171/76 H 93 Room Air 04/30/22 11:22 185/106 H Room Air 04/30/22 11:03 36.5 C 81 20 199/70 H 97 Room Air 04/30/22 08:30 Room Air 04/30/22 08:28 36.6 C 74 20 176/83 H 97 Room Air
[2022-04-30] MEDS: amLODIPine BESYLATE 5 MG TAB PO SCH (20:43)
[2022-05-01] MEDS: traMADol HCL 50 MG TABLET PO PRN ×2 (04:57→21:14)
[2022-05-01 07:47] LABS: BUN Creatinine Ratio 13.3 (10-20); Calcium 9.1 mg/dl (8.5-10.1); Est GFR (African American) 112.4 ml/min; Potassium 4.2 mmol/L (3.5-5.1)
[2022-05-01] MEDS ORDERED: PROPOFOL IV EMULSION 10 MG/ML 20 ML VIAL IV ONE (08:14)
[2022-05-01] MEDS ORDERED: LIDOCAINE 2% MPF LOCAL 5 ML VIAL INFIL ONE (08:14)
[2022-05-01] MEDS: OMEGA-3 (PURIFIED FISH OIL) 1 GM CAP PO SCH (08:29)
[2022-05-01] MEDS: ADVANCED PROBIOTIC 1250 MG CAPSULE PO SCH (08:29)
[2022-05-01] MEDS: CHOLECALCIFEROL 1,000 UNITS 25 MCG TAB PO SCH (08:29)
[2022-05-01] MEDS: MULTIVITAMIN TAB PO SCH (08:29)
[2022-05-01] MEDS: POTASSIUM CHLORIDE CRTAB 20 MEQ TABCR PO SCH (08:29)
[2022-05-01] MEDS: FUROSEMIDE 20 MG TAB PO SCH (08:30)
[2022-05-01] MEDS: ENOXAPARIN INJ 40 MG/0.4 ML SYR SQ SCH ×2 (12:45→22:54)
[2022-05-01] MEDS ORDERED: NYSTATIN POWDER 15GM BTL EXT PRN (15:21)
[2022-05-01] MEDS: cefTRIAXone SODIUM 2,000 MG in DEXTROSE 5% 50 ML IV SCH (17:23)
[2022-05-01] MEDS: amLODIPine BESYLATE 5 MG TAB PO SCH (21:04)
--- NOTE | 2022-05-01 23:16 | Hospitalist Progress Note ---
Date of Service May 01, 2022 Assessment & Plan (1) Fall: (2) Ambulatory dysfunction: (3) Chronic right hip pain: (4) Leg swelling: (5) UTI (urinary tract infection): (6) Elevated troponin: (7) DJD (degenerative joint disease): Plan Fall with ambulatory dysfunction: Severe right hip osteoarthritis Patient presented to ED on 04/27/2022 with evaluation for back and hip pain after a fall. Discharged from the emergency department but returned back on 04/28/2022 because of leg pain, weakness and difficulty walking CT head did not show any acute abnormality CT abdomen and pelvis unremarkable for acute findings Hip CT shows osteopenia and advance arthritic change of right hip Plan; Orthopedic evaluate the patient today; she had discussion with them about total hip arthroplasty. However, patient does not want to do any surgery at the moment She has a follow-up at [facility] in May PT/ OT recommended rehab or SNF Pain control with Tylenol and tramadol. Continue fall precaution Chronic leg swelling: Elevated trop; no delta gap. severe pitting edema on exam Doppler neg for DVT Echo shows EF of 55 to 60% with no wall motion abnormality. Grade 1 diastolic dysfunction present Continue Lasix 20mg PO Monitor BMP while on lasix Hypertension BP improved Continue amlodipine 2.5 mg Continue monitor BP UTI: Urine culture shows E. coli Currently on ceftriaxone. Will follow sensitivity Diet: Heart healthy DVT PPx: Lovenox Code Status: FULL CODE Disposition Stable to discharge to SNF or home with home health Admission and Anticipated Discharge Date Admission Date: April 28, 2022 Subjective Pt was seen and examined for follow up of fall Sitting in chair with no acute distress Pt said that she is afraid to walk because she does not want to fall She does not want to go home yet because she is afraid that she might fall Denies any chest pain, palpitation, dizziness and SOB Review of Systems Review of Systems: All systems reviewed & are unremarkable except as noted in Subjective Physical Exam Physical Exam: General- No acute distress Head- atraumatic Eyes- PERRL, EOMI, ENT- oropharynx clear Neck- supple, no JVD Lungs- clear to auscultation Heart- regular rhythm; no murmur Abdomen- normal bowel sounds, soft, nontender Extremities- no calf tenderness, +edema Neuro- alert, oriented x 3; PERRL, EOMI; no facial palsy; no dysarthria Skin- warm & dry Results & Data Results & Data ([facility]) Vital Signs (Past 12 Hours) Vital Signs Temp Pulse Pulse Resp BP BP Pulse Ox 05/01/22 22:00 36.8 C 78 20 148/83 H 93 05/01/22 22:45 05/01/22 19:00 37.2 C 86 20 141/83 H 95 05/01/22 14:15 88 05/01/22 15:59 36.7 C 78 20 164/90 H 97 05/01/22 11:12 37.0 C 78 20 142/86 H 94 O2 Del Method 05/01/22 22:00 Room Air 05/01/22 22:45 Room Air 05/01/22 19:00 Room Air 05/01/22 14:15 05/01/22 15:59 Room Air 05/01/22 11:12 Room Air
[2022-05-02 07:33] LABS: Blood Urea Nitrogen 8 mg/dl (6-23); Calcium 9.3 mg/dl (8.5-10.1); Carbon Dioxide 30 mmol/L (21-32); Chloride 104 mmol/L (98-107); Creatinine Clr Calc Pharmacy 159.7 ml/min; Est GFR (African American) 119.4 ml/min; Glucose 90 mg/dl (70-99(Fasting))
[2022-05-02] MEDS: CHOLECALCIFEROL 1,000 UNITS 25 MCG TAB PO SCH (07:53)
[2022-05-02] MEDS: MULTIVITAMIN TAB PO SCH (07:54)
[2022-05-02] MEDS: FUROSEMIDE 20 MG TAB PO SCH (07:54)
[2022-05-02] MEDS: OMEGA-3 (PURIFIED FISH OIL) 1 GM CAP PO SCH (07:54)
[2022-05-02] MEDS: ADVANCED PROBIOTIC 1250 MG CAPSULE PO SCH (07:54)
[2022-05-02] MEDS: POTASSIUM CHLORIDE CRTAB 20 MEQ TABCR PO SCH (07:55)
[2022-05-02] MEDS: NAPROXEN 250 MG TAB PO PRN (07:55)
[2022-05-02 09:00] LABS: Potassium 4.1 mmol/L (3.5-5.1)
[2022-05-02] MEDS: traMADol HCL 50 MG TABLET PO PRN ×2 (09:58→20:25)
[2022-05-02] MEDS: ENOXAPARIN INJ 40 MG/0.4 ML SYR SQ SCH ×2 (12:14→22:21)
[2022-05-02] MEDS: NAPHAZOLIN/PHENIRAMIN OPH SOLN 75 DROPS/5 ML BTL OP SCH ×2 (14:37→18:20)
--- NOTE | 2022-05-02 16:02 | Hospitalist Progress Note ---
Date of Service May 02, 2022 Assessment & Plan (1) Fall: (2) Ambulatory dysfunction: (3) Chronic right hip pain: (4) Leg swelling: (5) UTI (urinary tract infection): (6) Elevated troponin: (7) DJD (degenerative joint disease): Plan Fall with ambulatory dysfunction: Severe right hip osteoarthritis Patient presented to ED on 04/27/2022 with evaluation for back and hip pain after a fall. Discharged from the emergency department but returned back on 04/28/2022 because of leg pain, weakness and difficulty walking CT head did not show any acute abnormality CT abdomen and pelvis unremarkable for acute findings Hip CT shows osteopenia and advance arthritic change of right hip Plan; Orthopedic evaluate the patient today; she had discussion with them about total hip arthroplasty. However, patient does not want to do any surgery at the moment She has a follow-up at [facility] in May PT/ OT recommended rehab or SNF Pain control with Tylenol and tramadol. Continue fall precaution Chronic leg swelling: Elevated trop; no delta gap. severe pitting edema on exam Doppler neg for DVT Echo shows EF of 55 to 60% with no wall motion abnormality. Grade 1 diastolic dysfunction present Continue Lasix 20mg PO Monitor BMP while on lasix Might consider lasix prn on discharge for edema Hypertension BP improved Continue amlodipine 2.5 mg Continue monitor BP UTI: Urine culture shows E. coli Currently on ceftriaxone #5 clinically stable Diet: Heart healthy DVT PPx: Lovenox Code Status: FULL CODE Disposition Waiting for bed to discharge to [facility] Admission and Anticipated Discharge Date Admission Date: April 28, 2022 Subjective Pt was seen and examined for follow up of fall Sitting in chair with no acute distress She said that she feels ok She said that she woke up with crusty matter in her eyes She is happy because she might get a bed tomorrow to [facility] Denies any chest pain, palpitation, dizziness and SOB Review of Systems Review of Systems: All systems reviewed & are unremarkable except as noted in Subjective Physical Exam Physical Exam: General- No acute distress Head- atraumatic Eyes- PERRL, EOMI, ENT- oropharynx clear Neck- supple, no JVD Lungs- clear to auscultation Heart- regular rhythm; no murmur Abdomen- normal bowel sounds, soft, nontender Extremities- no calf tenderness, +edema Neuro- alert, oriented x 3; PERRL, EOMI; no facial palsy; no dysarthria Skin- warm & dry Results & Data Results & Data ([facility]) Vital Signs (Past 12 Hours) Vital Signs Temp Pulse Pulse Resp BP Pulse Ox O2 Del Method 05/02/22 15:29 80 05/02/22 15:11 95 Room Air 05/02/22 14:53 37.2 C 83 20 142/80 H 91 Room Air 05/02/22 07:45 Room Air 05/02/22 11:22 37.1 C 81 20 151/85 H 93 Room Air 05/02/22 08:03 36.9 C 81 20 162/84 H 93 Room Air 05/02/22 06:57 82 05/02/22 04:00 36.8 C 72 161/91 H 92 Room Air
[2022-05-02] MEDS: cefTRIAXone SODIUM 2,000 MG in DEXTROSE 5% 50 ML IV SCH (18:20)
[2022-05-02] MEDS: amLODIPine BESYLATE 5 MG TAB PO SCH (20:26)
[2022-05-03] MEDS: NAPHAZOLIN/PHENIRAMIN OPH SOLN 75 DROPS/5 ML BTL OP SCH ×4 (00:44→18:29)
[2022-05-03] MEDS: traMADol HCL 50 MG TABLET PO PRN ×3 (05:55→18:28)
[2022-05-03] MEDS: ALBUMIN 25% 12.5 GM/50 ML VIAL IV SCH ×3 (06:29→18:29)
[2022-05-03 08:16] LABS: Basophils # (auto) 0.03 K/uL (0-0.2); Basophils % (auto) 0.7 %; Eosinophils # (auto) 0.61 K/uL (0-0.50); Eosinophils % (auto) 13.4 %; Hematocrit (blood only) 38.1 % (34.1-44.9); Hemoglobin 12.4 g/dl (12.0-16.0); Immature Granulocytes # (auto) 0.01 K/uL (0.00-0.02); Immature Granulocytes % (auto) 0.2 %; Lymphocytes # (auto) 1.49 K/uL (1.2-3.4); Lymphocytes % (auto) 32.7 %; Mean Corpuscular Hemoglobin 31.7 pg (25.0-34.0); Mean Corpuscular Hgb Conc 32.5 g/dL (32.0-36.0); Mean Corpuscular Volume 97.4 fL (80.0-100.0); Monocytes # (auto) 0.63 K/uL (0.24-0.82); Monocytes % (auto) 13.8 %; Neutrophils # (auto) 1.78 K/uL (1.4-6.5); Neutrophils % (auto) 39.2 %; Platelet Count 298 K/uL (130-400); RDW Coefficient of Variation 12.6 % (11.5-14.5); RDW Standard Deviation 44.6 fL (36.4-46.3); Red Blood Count 3.91 M/uL (3.93-5.22); White Blood Count 4.55 K/ul (4.8-10.8)
[2022-05-03 08:37] LABS: BUN Creatinine Ratio 17.7 (10-20); Calcium 9.1 mg/dl (8.5-10.1); Creatinine Clr Calc Pharmacy 128.1 ml/min; Est GFR (African American) 111.2 ml/min; Potassium 4.2 mmol/L (3.5-5.1)
[2022-05-03] MEDS: ADVANCED PROBIOTIC 1250 MG CAPSULE PO SCH (08:41)
[2022-05-03] MEDS: FUROSEMIDE 20 MG TAB PO SCH (08:41)
[2022-05-03] MEDS: MULTIVITAMIN TAB PO SCH (08:42)
[2022-05-03] MEDS: POTASSIUM CHLORIDE CRTAB 20 MEQ TABCR PO SCH (08:42)
[2022-05-03] MEDS: CHOLECALCIFEROL 1,000 UNITS 25 MCG TAB PO SCH (08:42)
[2022-05-03] MEDS: NAPROXEN 250 MG TAB PO PRN ×2 (08:42→16:17)
[2022-05-03] MEDS: OMEGA-3 (PURIFIED FISH OIL) 1 GM CAP PO SCH (08:42)
[2022-05-03] MEDS: ENOXAPARIN INJ 40 MG/0.4 ML SYR SQ SCH ×2 (12:12→23:32)
--- NOTE | 2022-05-03 15:13 | Hospitalist Progress Note ---
Date of Service May 03, 2022 Assessment & Plan (1) Fall: (2) Ambulatory dysfunction: (3) Chronic right hip pain: (4) Leg swelling: (5) UTI (urinary tract infection): (6) Elevated troponin: (7) DJD (degenerative joint disease): Plan Fall with ambulatory dysfunction: Severe right hip osteoarthritis Patient presented to ED on 04/27/2022 with evaluation for back and hip pain after a fall. Discharged from the emergency department but returned back on 04/28/2022 because of leg pain, weakness and difficulty walking CT head did not show any acute abnormality CT abdomen and pelvis unremarkable for acute findings Hip CT shows osteopenia and advance arthritic change of right hip Plan; Orthopedic evaluate the patient on admission; she had discussion with them about total hip arthroplasty. However, patient does not want to do any surgery at the moment She has a follow-up at [facility] in May PT/ OT recommended rehab or SNF Pain control with Tylenol and tramadol. Continue fall precaution Chronic leg swelling: Elevated trop; no delta gap. severe pitting edema on exam Doppler neg for DVT Echo shows EF of 55 to 60% with no wall motion abnormality. Grade 1 diastolic dysfunction present Continue Lasix 20mg PO Monitor BMP while on lasix Might consider lasix prn on discharge for edema Hypertension BP improved Continue amlodipine 2.5 mg Continue monitor BP UTI: Urine culture shows E. coli Currently on ceftriaxone #5 clinically stable Diet: Heart healthy DVT PPx: Lovenox Code Status: FULL CODE Disposition Waiting for bed for Rehab. DC tomorrow am if placement avaiable. Admission and Anticipated Discharge Date Admission Date: April 28, 2022 Subjective Patient seen and examined at bedside. Comfortable; not in any distress. pain is well controlled. Review of Systems Review of Systems: All systems reviewed & are unremarkable except as noted in Subjective Physical Exam Physical Exam: Constitutional: Alert orient x3; morbidly obese. Respiratory: normal respiratory effort, lungs clear to auscultation, no wheeze, rales, rhonchi. Normal insp/exp effort, no accessory muscle use Cardiovascular: RRR, no murmur, no edema Vessels: no JVD or carotid bruit Chest: normal inspection of chest Abdomen: normal bowel sounds, soft, nontender, no hepatosplenomegaly Musculoskeletal: ROM painful on right hip. Skin: no rashes, warm and dry normal turgor Neurologic: PERRL, EOMI, accommodation nl, no face palsy, no dysarthria CN's II- XI intact bilaterally and moves all extremities Psychiatric: A+Ox3, euthymic affect Lymphatic: no cervical or axillary lymphadenopathy : deferred Results & Data Results & Data ([facility]) Vital Signs (Past 12 Hours) Vital Signs Temp Pulse Pulse Resp BP Pulse Ox O2 Del Method 05/03/22 07:00 70 05/03/22 11:14 37.4 C 60 18 157/78 H 97 Room Air 05/03/22 07:00 Room Air 05/03/22 07:44 36.8 C 68 18 141/77 H 96 Room Air Laboratory Results Laboratory Results WBC 4.55 K/ul (4.8-10.8) L 05/03/22 07:13 RBC 3.91 M/uL (3.93-5.22) L 05/03/22 07:13 Hgb 12.4 g/dl (12.0-16.0) 05/03/22 07:13 Hct 38.1 % (34.1-44.9) 05/03/22 07:13 MCV 97.4 fL (80.0-100.0) 05/03/22 07:13 MCH 31.7 pg (25.0-34.0) 05/03/22 07:13 MCHC 32.5 g/dL (32.0-36.0) 05/03/22 07:13 RDW Std Deviation 44.6 fL (36.4-46.3) 05/03/22 07:13 RDW Coeff of Da 12.6 % (11.5-14.5) 05/03/22 07:13 Plt Count 298 K/uL (130-400) 05/03/22 07:13 MPV 10.0 fL (9.4-12.3) 05/03/22 07:13 Immature Gran % (Auto) 0.2 % 05/03/22 07:13 Neut % (Auto) 39.2 % 05/03/22 07:13 Lymph % (Auto) 32.7 % 05/03/22 07:13 [place] % (Auto) 13.8 % 05/03/22 07:13 Eos % (Auto) 13.4 % 05/03/22 07:13 Baso % (Auto) 0.7 % 05/03/22 07:13 Neut # (Auto) 1.78 K/uL (1.4-6.5) 05/03/22 07:13 Lymph # (Auto) 1.49 K/uL (1.2-3.4) 05/03/22 07:13 [place]es # (Auto) 0.63 K/uL (0.24-0.82) 05/03/22 07:13 Eos # (Auto) 0.61 K/uL (0-0.50) H 05/03/22 07:13 Baso # (Auto) 0.03 K/uL (0-0.2) 05/03/22 07:13 Immature Gran # (Auto) 0.01 K/uL (0.00-0.02) 05/03/22 07:13 Sodium 139 mmol/L (136-145) 05/03/22 07:13 Potassium 4.2 mmol/L (3.5-5.1) 05/03/22 07:13 Chloride 104 mmol/L (98-107) 05/03/22 07:13 Carbon Dioxide 29 mmol/L (21-32) 05/03/22 07:13 Anion Gap 6 (3-11) 05/03/22 07:13 BUN 11 mg/dl (6-23) 05/03/22 07:13 Creatinine 0.62 mg/dl (0.6-1.2) 05/03/22 07:13 Est Cr Clr Drug Dosing 128.1 ml/min 05/03/22 07:13 Est GFR ( Amer) 111.2 ml/min 05/03/22 07:13 Est GFR (Non-Af Amer) 96.0 ml/min 05/03/22 07:13 BUN/Creatinine Ratio 17.7 (10-20) 05/03/22 07:13 Glucose 94 mg/dl (70-99(Fasting)) 05/03/22 07:13 Estimat Average Glucose 103 mg/dl 04/29/22 06:24 Hemoglobin A1c 5.2 % (4.5-5.6) 04/29/22 06:24 Calcium 9.1 mg/dl (8.5-10.1) 05/03/22 07:13 Total Bilirubin 0.5 mg/dl (0.2-1.0) 04/29/22 06:24 AST 20 U/L (13-39) 04/29/22 06:24 ALT 15 U/L (7-52) 04/29/22 06:24 Alkaline Phosphatase 53 U/L (34-104) 04/29/22 06:24 Troponin I High Sens 15.9 pg/ml (0-14) H D 04/28/22 12:05 Total Protein 5.5 gm/dl (6.0-8.3) L 04/29/22 06:24 Albumin 3.2 gm/dl (3.4-5.0) L 04/29/22 06:24 Globulin 2.3 gm/dl (2.5-4.0) L 04/29/22 06:24 Albumin/Globulin Ratio 1.4 (0.9-2) 04/29/22 06:24 Urine Color Yellow 04/28/22 15:22 Urine Appearance Cloudy (Clear) A 04/28/22 15: Urine pH 7.0 (4.5-7.5) 04/28/22 15:22 Ur Specific [place] 1.027 (1.000-1.030) 04/28/22 15:22 Urine Protein 1+ (Negative) H 04/28/22 15:22 Urine Glucose (UA) Negative (Negative) 04/28/22 15: Urine Ketones 2+ (Negative) H 04/28/22 15: Urine Blood 2+ (Negative) H 04/28/22 15:22 Urine Nitrite Positive (Negative) A 04/28/22 15: Urine Bilirubin Negative (Negative) 04/28/22 15: Urine Urobilinogen Negative (Negative) 04/28/22 15:22 Ur Leukocyte Esterase 3+ (Negative) H 04/28/22 15:22 Urine WBC (Auto) >30 /hpf (0-5) H 04/28/22 15:22 Urine RBC (Auto) 10-30 /hpf (0-4) H 04/28/22 15:22 U Hyaline Cast (Auto) 10-30 /lpf (0-5) H 04/28/22 15:22 U Epithel Cells (Auto) >30 /lpf (0-5) H 04/28/22 15:22 Urine Bacteria (Auto) 4+ (Negative) H 04/28/22 15:22 Impressions Venous Doppler Study 04/28/22 14:32 ULTRASOUND BILATERAL LOWER EXTREMITY VENOUS CLINICAL HISTORY: Leg pain. COMPARISON STUDY: No priors. TECHNIQUE: Real-time, grayscale, and color Doppler sonography of the deep veins of the right and left lower extremity was performed from the inguinal crease to the calf. Compression and augmentation were utilized. FINDINGS: There is no sonographic evidence of deep venous thrombosis identified in the right or left lower extremity. The common femoral, superficial femoral, and popliteal veins are patent and normally compressible bilaterally. The greater saphenous vein and the profunda femoris vein at the junction with the common femoral vein are clear in both legs. The visualized calf veins are patent bilaterally. Soft tissue edema is present within the calves. IMPRESSION: There is no sonographic evidence of deep venous thrombosis identified in the right or left lower extremity. ACT 112: Negative or not required by law. Electronically signed by: Chris Ybarra M.D. 04/28/2022 4:[address] 04/28/22 22:07 CT SCAN OF THE RIGHT HIP WITHOUT IV CONTOUR CLINICAL HISTORY: Right hip pain. COMPARISON STUDY: Pelvic CT dated 04/27/2022. TECHNIQUE: CT scan of the right hip is performed to the bony pelvis to be femoral shaft. Images are reviewed in the axial, sagittal, and coronal planes. IV contrast was not administered for this examination. A dose lowering technique was utilized adhering to the principles of ALARA. Note that interpretation is suboptimal without plain film correlate. CT DOSE: 1083.48 mGy.cm FINDINGS: The skeletal structures are osteopenic. There is no evidence of acute fracture involving the right hip or the visualized right hemipelvis. There is advanced osteoarthritic change of the right hip with complete loss of joint space, bony overgrowth, and mild flattening of the femoral head. There is extensive bony sclerosis and subchondral cyst formation along both sides of the joint. No significant joint effusion is seen. There is no evidence of avascular sclerosis of the femoral head. No lytic or blastic lesion is seen. Sclerotic change is partially visualized in the right sacroiliac joint. There is generalized atrophy of the regional musculature. No right pelvic sidewall or inguinal adenopathy is seen. Excreted IV contrast fills the partially imaged bladder. IMPRESSION: 1. No acute bony abnormality is identified. No change from yesterday's pelvic CT. 2. Osteopenia and advanced arthritic change of the right hip as above. ACT 112: Negative or not required by law. Electronically signed by: Chris Ybarra M.D. 04/28/2022 11:50 PM
[2022-05-03] MEDS: cefTRIAXone SODIUM 2,000 MG in DEXTROSE 5% 50 ML IV SCH (17:54)
[2022-05-03] MEDS: amLODIPine BESYLATE 5 MG TAB PO SCH (20:47)
[2022-05-04] MEDS: NAPHAZOLIN/PHENIRAMIN OPH SOLN 75 DROPS/5 ML BTL OP SCH ×3 (00:40→21:59)
[2022-05-04] MEDS: ALBUMIN 25% 12.5 GM/50 ML VIAL IV SCH ×2 (00:46→05:49)
[2022-05-04] MEDS: POTASSIUM CHLORIDE CRTAB 20 MEQ TABCR PO SCH (08:15)
[2022-05-04] MEDS: MULTIVITAMIN TAB PO SCH (08:15)
[2022-05-04] MEDS: OMEGA-3 (PURIFIED FISH OIL) 1 GM CAP PO SCH (08:15)
[2022-05-04] MEDS: CHOLECALCIFEROL 1,000 UNITS 25 MCG TAB PO SCH (08:15)
[2022-05-04] MEDS: ADVANCED PROBIOTIC 1250 MG CAPSULE PO SCH (08:15)
[2022-05-04] MEDS: FUROSEMIDE 20 MG TAB PO SCH (08:16)
[2022-05-04] MEDS: traMADol HCL 50 MG TABLET PO PRN ×2 (08:16→18:32)
--- NOTE | 2022-05-04 12:08 | Hospitalist Progress Note ---
Date of Service May 04, 2022 Assessment & Plan (1) Fall: (2) Ambulatory dysfunction: (3) Chronic right hip pain: (4) Leg swelling: (5) UTI (urinary tract infection): (6) Elevated troponin: (7) DJD (degenerative joint disease): Plan Fall with ambulatory dysfunction: Severe right hip osteoarthritis Patient presented to ED on 04/27/2022 with evaluation for back and hip pain after a fall. Discharged from the emergency department but returned back on 04/28/2022 because of leg pain, weakness and difficulty walking CT head did not show any acute abnormality CT abdomen and pelvis unremarkable for acute findings Hip CT shows osteopenia and advance arthritic change of right hip Plan; Orthopedic evaluate the patient on admission; she had discussion with them about total hip arthroplasty. However, patient does not want to do any surgery at the moment She has a follow-up at [facility] in May PT/ OT recommended rehab or SNF Pain control with Tylenol and tramadol. Continue fall precaution Chronic leg swelling: Elevated trop; no delta gap. severe pitting edema on exam Doppler neg for DVT Echo shows EF of 55 to 60% with no wall motion abnormality. Grade 1 diastolic dysfunction present Continue Lasix 20mg PO Monitor BMP while on lasix Might consider lasix prn on discharge for edema Hypertension BP improved Continue amlodipine 2.5 mg Continue monitor BP UTI: Urine culture shows E. coli s/p 5 days of ceftriaxone. Diet: Heart healthy DVT PPx: Lovenox Code Status: FULL CODE Disposition Waiting for bed for Rehab. medically stable for discharge. Admission and Anticipated Discharge Date Admission Date: April 28, 2022 Subjective Patient seen and examined at bedside. She is comfortable; not in any distress. Awaiting placement. Review of Systems Review of Systems: All systems reviewed & are unremarkable except as noted in Subjective Physical Exam Physical Exam: Constitutional: Alert orient x3; morbidly obese. Respiratory: normal respiratory effort, lungs clear to auscultation, no wheeze, rales, rhonchi. Normal insp/exp effort, no accessory muscle use Cardiovascular: RRR, no murmur, no edema Vessels: no JVD or carotid bruit Chest: normal inspection of chest Abdomen: normal bowel sounds, soft, nontender, no hepatosplenomegaly Musculoskeletal: ROM painful on right hip. Skin: no rashes, warm and dry normal turgor Neurologic: PERRL, EOMI, accommodation nl, no face palsy, no dysarthria CN's II- XI intact bilaterally and moves all extremities Psychiatric: A+Ox3, euthymic affect Lymphatic: no cervical or axillary lymphadenopathy : deferred Results & Data Results & Data ([facility]) Vital Signs (Past 12 Hours) Vital Signs Temp Pulse Pulse Resp BP Pulse Ox O2 Del Method 05/04/22 11:14 37.1 C 79 20 139/85 94 Room Air 05/04/22 07:00 Room Air 05/04/22 07:42 37 C 66 20 151/77 H 96 Room Air 05/04/22 07:02 66 05/04/22 03:25 36.8 C 72 20 156/79 H 95 Room Air 05/04/22 01:00 69
[2022-05-04] MEDS: ENOXAPARIN INJ 40 MG/0.4 ML SYR SQ SCH ×2 (12:16→22:00)
[2022-05-04] MEDS ORDERED: MAGNESIUM HYDROXIDE SUSP 30 ML UDC PO ONE (14:10)
[2022-05-04] MEDS: amLODIPine BESYLATE 5 MG TAB PO SCH (20:48)
[2022-05-05] MEDS: NAPHAZOLIN/PHENIRAMIN OPH SOLN 75 DROPS/5 ML BTL OP SCH ×2 (02:05→08:04)
[2022-05-05] MEDS: NAPROXEN 250 MG TAB PO PRN (02:11)
[2022-05-05] MEDS: CHOLECALCIFEROL 1,000 UNITS 25 MCG TAB PO SCH (08:03)
[2022-05-05] MEDS: MULTIVITAMIN TAB PO SCH (08:03)
[2022-05-05] MEDS: OMEGA-3 (PURIFIED FISH OIL) 1 GM CAP PO SCH (08:03)
[2022-05-05] MEDS: ADVANCED PROBIOTIC 1250 MG CAPSULE PO SCH (08:04)
[2022-05-05] MEDS: FUROSEMIDE 20 MG TAB PO SCH (08:04)
[2022-05-05] MEDS: POTASSIUM CHLORIDE CRTAB 20 MEQ TABCR PO SCH (08:04)
[2022-05-05] MEDS: traMADol HCL 50 MG TABLET PO PRN (08:11)
[2022-05-05] MEDS: ENOXAPARIN INJ 40 MG/0.4 ML SYR SQ SCH (10:35)
--- NOTE | 2022-05-05 13:24 | Discharge Summary ---
Date of Service May 05, 2022 Admission HPI Per Admitting Provider Pt is a 61 y/o F with hx of severe DJD, obesity, b/l Leg swelling, chronic joint pain came to the ER with worsening L knee and R hip pain. Per pt she had 2 mechanical falls yesterday and 2 days ago. Denied any LOC or head trauma. She stated that her L leg gave out. She uses walker to ambulate and recently she is having difficulty ambulating due to pain. She takes naproxen, Tylenol and medical marijuana for pain. Denied any acute CP or SOB. Does have chronic leg swelling which is recently worsened. Denied any hx of [place] or CVA. She had a visit with Rheum 3 months ago. At that time Hip xray showed R hip osteonecrosis. Have not seen an ortho yet but sched to follow up with [facility] HIP xray from 01/2022: 1. Severe right hip degenerative change and evidence of osteonecrosis. Orthopedic consultation is recommended if not already performed. 2. Unremarkable left hip. 3. No acute fracture Admission Exam Per Admitting Provider General:.obese pt,NAD HEENT:.Normocephalic and atraumatic, Normal Conjunctiva, EOMI, Sclera is non- icteric Lungs:.No signs of respiratory distress, CTA, no wheezing or crackles Heart:.Normal S1, S2, no murmur Abdominal:.obese abd,Soft, NT MSK:.severe b/l LE pitting edema, pain with b/l hips and legs movement Psych:.AAOx3, normal affect Principal Diagnosis Fall with ambulatory dysfunction: Severe right hip osteoarthritis Hypertension Discharge Exam Constitutional: Alert orient x3; morbidly obese. Respiratory: normal respiratory effort, lungs clear to auscultation, no wheeze, rales, rhonchi. Normal insp/exp effort, no accessory muscle use Cardiovascular: RRR, no murmur, no edema Vessels: no JVD or carotid bruit Chest: normal inspection of chest Abdomen: normal bowel sounds, soft, nontender, no hepatosplenomegaly Musculoskeletal: ROM painful on right hip. Skin: no rashes, warm and dry normal turgor Neurologic: PERRL, EOMI, accommodation nl, no face palsy, no dysarthria CN's II- XI intact bilaterally and moves all extremities Psychiatric: A+Ox3, euthymic affect Lymphatic: no cervical or axillary lymphadenopathy : deferred Discharge Data Allergies Allergy/AdvReac Type Severity Reaction Status Date / Time No Known Allergies Allergy Unverified 04/28/22 15:38 Consultations 04/28/22 22:07 Consult Orthopedic Surgery Routine Ordered Studies 04/28/22 14:32 US leg [US venous doppler LE BI] Stat 04/28/22 22:07 CT hip RT wo con Routine Hospital Course (1) Fall: (2) Ambulatory dysfunction: (3) Chronic right hip pain: (4) Leg swelling: (5) UTI (urinary tract infection): (6) Elevated troponin: (7) DJD (degenerative joint disease): Plan Fall with ambulatory dysfunction: Severe right hip osteoarthritis Patient presented to ED on 04/27/2022 with evaluation for back and hip pain after a fall. Discharged from the emergency department but returned back on 04/28/2022 because of leg pain, weakness and difficulty walking CT head did not show any acute abnormality CT abdomen and pelvis unremarkable for acute findings Hip CT shows osteopenia and advance arthritic change of right hip Plan; Orthopedic evaluate the patient on admission; she had discussion with them about total hip arthroplasty. However, patient does not want to do any surgery at the moment She has a follow-up at [facility] in May Pain control with Tylenol, naproxen and tramadol. Patient discharged to subacute rehab. Chronic leg swelling: Hypertension : Elevated trop; no delta gap. Doppler neg for DVT Echo shows EF of 55 to 60% with no wall motion abnormality. Grade 1 diastolic dysfunction present Started on amlodipine 2.5 mg once daily. Also started on Lasix 20 mg as needed. UTI: Urine culture shows E. coli s/p 5 days of ceftriaxone. Total Time Total Time Spent Total Time Spent (In Minutes): 40 Total Time Includes: Examination of the Patient, Discharge Planning, Medication Reconciliation, Communication With Other Providers and Other Discharge Plan Discharge Items Patient Disposition: Transfer [facility] Reason For Visit: HIP PAIN Discharge Diagnosis: Fall with ambulatory dysfunction: Severe right hip osteoarthritis Hypertension UTI Activity: Resume your previous activity Non-emergency contact: Primary Care Provider Call non-emergency contact if: you have any medication questions and your symptoms worsen Follow-up/Referrals: PCP,NO [Primary Care Provider] - Diet: Regular Addtl Attending Provider Instructions: You are admitted to the hospital with following conditions; 1) Severe right hip osteoarthritis; please follow-up with [facility] and continue physical therapy for now 2) Hypertension, your blood pressure was found to be elevated during the hospitalization. You are started on amlodipine 2.5 mg once daily. You are also started on Lasix 20 mg as needed for leg swelling. 3) Urinary tract infectionyou are treated with IV antibiotic during the hospitalization. Please follow-up with your primary care doctor after discharge from the hospital. Pending Studies at Discharge: No Stand-Alone Forms: My [facility] Skilled Items Patient informed of condition?: Yes DNR: No Discharge Level of Care: Skilled Communicable Disease: No Discharge Prognosis: Stable Lines: None Urinary Catheter: No Medications and DC Order Prescriptions: New amlodipine [Norvasc] 5 mg Tablet 2.5 mg PO HS Qty: 30 0RF tramadol 50 mg Tablet 50 mg PO Q6H PRN (Reason: severe pain (scale score 7-10)) Qty: 10 0RF furosemide 20 mg Tablet 20 mg PO QAM PRN (Reason: leg swelling) Qty: 30 0RF Advanced Probiotic 625 mg (10 billion cell) Capsule 2 cap PO DAILY Qty: 60 0RF Continued multivitamin Tablet 1 tab PO QAM Qty: 30 0RF acetaminophen 325 mg Tablet 650 mg PO QID PRN (Reason: Pain) Qty: 30 0RF naproxen 250 mg Tablet 500 mg PO BID PRN (Reason: Pain) Qty: 30 0RF cholecalciferol (vitamin D3) [Vitamin D3] 10 mcg (400 unit) Capsule 10 mcg PO QAM Qty: 30 0RF omega 5-lag-spx-fish oil [Fish Oil] 60-90-500 mg Capsule 1 cap PO QAM Qty: 30 0RF Discontinued Medical Marijuana 1 inh inhalation USEASDIRECTD PRN (Reason: Anxiety) Discharge Orders: Discharge Order (Routine); Ordered 05/05/22 Ordered By: Alberto Pickens Admission Data Admit Date/Time: 04/28/22 19:22 Attending Provider: Alberto Pickens Admit Provider: Mauri Ontiveros Primary Care Provider: PCP,NO Other Providers: Mervin Zamarripa ; Alberto Pickens ; [facility] ; [facility] ; [place] Other Interventions: Discharge Summary Assessment (RN) Last Done: 05/05/22 11:34
== END 2022-05-05 12:10 | DRG 554 ==
LOC: ED 11:34 → 2N 19:22 → SUATTDRO 19:22 → 2N 21:28

== ENCOUNTER 2024-05-28 07:02 | Inpatient (IN) ==
--- OUTSIDE RECORDS SUMMARY | 2024-05-28 07:08 | External Medical Summary | Summary of Care ---
Author Name Unknown Organization [facility] Address [address] [address] Phone [phone] Care Team Providers Care Oxyacetylene Welder Name Role Phone Arely Lui Primary Care Provider [phone]- [phone] Reason for Visit * Reason Onset Date Comments Advice 04/10/2024 Encounter Details Date Type Department Care Team (Late st Contact Info) Description 04/10/2024 Telephone Family Practice [facility] [address] [place] [address] Arely Lui CRNP [address] [place] [address] Advice Allergies No known active allergiesdocumented as of this encounter (statuses as of 04/10/2024) Medications Acetaminophen ER 650 MG Oral Tablet Extended Release Take 1 Tablet by mouth every 8 hours as needed. Active Multi-Vitamins Oral Tablet Take 1 Tablet by mouth in the morning. Active Krill Oil 500 MG Oral Capsule Take 1 Capsule by mouth in the morning. Active Fluconazole 150 MG Oral Tablet (Diflucan)Indicati ons:Vaginal candidiasis Take 1 tab by mouth for vaginal yeast infection may repeat dose in 1 week if symptoms persist 2 Tablet 12/15/19 23 Active Additional Information Patient not taking.Reported on 03/10/2024 DULoxetine HCl 60 MG Oral Capsule Delayed Release Particles (Cymbalta)Indicati ons:Avascular necrosis of bone of hip, right (HCC),Generalized osteoarthritis of multiple sites Take 1 Capsule by mouth in the morning. 90 Capsule 2 11/01/19 24 Active traMADol HCl 50 MG Oral Tablet (Ultram)Indication s:Avascular necrosis of bone of hip, right (HCC),Generalized osteoarthritis of multiple sites Take 1 Tablet by mouth every 6 hours as needed for Pain, Severe. 90 Tablet 3 12/12/19 24 Active Celecoxib 200 MG Oral Capsule (CeleBREX)Indicati ons:Arthritis pain of hand Take 1 Capsule by mouth in the morning. For pain. 90 Capsule 3 03/10/20 24 Active documented as of this encounter (statuses as of 04/10/2024) Active Problems Problem Noted Date Diagnosed Date Body mass index (BMI) of 40.0 to 44.9 in adult 1 06/08/2022 Overview: Per Obesity protocol Primary osteoarthritis of right hip 12/14/2022 Primary osteoarthritis of both knees 12/14/2022 Avascular necrosis of bone of hip, right 023 Heart murmur 06/26/2022 Lymphedema 06/26/2022 Generalized osteoarthritis of multiple sites 10/2021 documented as of this encounter (statuses as of 04/10/2024) Immunizations Name Administration Dates Next Due Seasonal Influenza, PF, 6 M & above, IM , (FluLaval or Fluzone) 03/21/2023,03/31/2022,03/04/2021 Seasonal Influenza, Trivalen t, (IIV3), PF, (Fluzone) 03/10/2024 TDAP (age 10 and older)(Boostrix) 06/26/2022 Zoster Vaccine Recombinant (Shingrix) 12/14/2022 ,06/26/2022 documented as of this encounter Social History Tobacco Use Types Packs/Day Years Used Date Smoking Tobacco: Never Smokeless Tobacco: Never Alcohol Use Standard Drinks/Week Comments Not Currently 0 (1 standard drink = 0.6 oz pur e alcohol) PHQ-2 Answer Date Recorded PHQ Adult Total Score 0 06/26/2022 Hunger Vital Sign Answer Date Recorded Within the past 12 months, y ou worried that your food would run out before you got the money to buy more. Never true 03/10/20 24 Within the past 12 months, t he food you bought just didn't last and you didn't have money to get more. Never true 03/10/2024 Childcare Answer Date Recorded Do you feel overwhelmed with taking care of a child, family member or friend? No 03/10/2024 Does your family need help f inding childcare? (Household - for ages 0-17 years) Not on file 03/10/2024 Clothing Answer Date Recorded Have you been unable to get clothing when it was really needed? No 03/10/2024 Is your family able to get c lothes or diapers when needed? (Household - for ages 0-17 years) Not on file 03/10/2024 Personal Safety Answer Date Recorded Do you feel unsafe or have concerns for your saf ety? No 03/10/2024 Do you have concerns for you r family's safety? (Household - for ages 0-17 years) Not on file 03/10/2024 Utilities Answer Date Recorded Do you have trouble paying y our heating, water, or electric bill? No 03/10/2024 Is your family able to pay t he heat, water, or electric bill? (Household - for ages 0-17 years) Not on file 03/10/2024 Does your family have access to good internet? (Household - for ages 0-17 years) Not on file 03/10/2024 Employment Status Answer Date Recorded Are you unemployed or without regular income? No 03/10/2024 Does the household have a re gular source of income? (Household - for ages 0-17 years) Not on file 03/10/2024 Social Connections Answer Date Recorded How often do you feel lonely or isolated from th ose around you? Never 03/10/2024 Financial Resource Strain Answer Date R ecorded Do you have any trouble payi ng for your medications, or do you think you might in the future? No 03/10/2024 Does your family have troubl e paying for medicine? (Household - for ages 0-17 years) Not on file 03/10/2024 Transportation Needs Answer Date Record ed Do you have trouble getting a ride to medical visits or work? (Adult - for ages 18 years and over) Not on file 03/10/2024 Does your family have a hard time getting a ride to doctors visits? (Household - for ages 0-17 years) Not on file 03/10/2024 Has lack of transportation k ept you from medical appointments, meetings, work, or from getting things needed for daily living? Check all that apply. No 03/10/2024 Do you (or your family) have trouble finding or paying for a ride (transportation)? (Household - for ages 0-17 years) Not on file 03/10/2024 Housing Stability Answer Date Recorded Do you currently live in a s helter or have no steady place to sleep at night? No 03/10/2024 Do you think you are at risk of becoming homeless? (Adult - for ages 18 years and over) Not on file 03/10/2024 Does your family worry about paying for your home or becoming homeless? (Household - for ages 0-17 years) Not on file 1 Are you homeless or worried that you might be in the future? No 03/10/2024 Are you (or your family) saulo eless or worried that you might be in the future? (Household - for ages 0-17 years) Not on file Food Insecurity Answer Date Recorded Do you need food for this week? No 03/10/2024 Are you able to get enough f ood for your family? (Household - for ages 0-17 years) Not on file 03/10/2024 Does your family need food t his week? (Household - for ages 0-17 years) Not on file 03/10/2024 Do you always have enough fo od for your family? (Household - for ages 0-17 years) Not on file 03/10/2024 Comments No Sex and Gender Information Value Date Recorded Sex Assigned at Female 01/27/2022 10:26 AM EDT Legal Sex Female 11:06 AM EDT Gender Identity Female 01/27/2022 10:26 AM EDT Sexual Orientation Straight 01/27/2022 10 :26 AM EDT documented as of this encounter Miscellaneous Notes * Telephone Encounter - Mariana Modi LPN - 04/10/2024 10:20 AM EST Pt calling, address in another encounter. * Telephone Encounter - Ivelisse Rodriguez OSA - 04/10/2024 10:16 AM EST Reason for patient's call: pt calling to speak with a nurse no information given Caller was transferred to mariana at the nurse line. documented in this encounter Plan of Treatment Upcoming Encounters Date Type Department Care Team (Late st Contact Info) Description 09/08/2024 2:40 PM EDT Office Visit Family [facility] [address] [place] [address] Yenny Marin CRNP [address] [place] [address] Health Maintenance Due Date Last Done Comments HIV Screening 1973 Hepatitis C Screening 1976 Mammogram 1998 Cologuard 2003 Colonoscopy 2003 Colorectal Cancer Screening 2003 Fecal Occult Blood Test 2003 Sigmoidoscopy 2003 Depression Screening 06/26/2023 06/26/2022 DXA Scan 2023 Pneumococcal Vaccine: 65+ Years (1 of 1 - PCV) 2023 COVID-19 Vaccine (1 - season) 2024 Diabetes Screening 08/18/2026 08/19/2023, 0 08/16/2022, 01/30/2022 Lipid Panel 08/17/2027 08/16/2022 DTap/Tdap Vaccines (2 - Td or Tdap) 06/26/2032 06/26/2022 Zoster Vaccines Completed 12/14/2022, 06/26/2022 Influenza Vaccine (FLU shot) Completed , 03/21/2023, 03/31/2022, Additional history exists HPV (Gardasil) Vaccine Aged Out No lo nger eligible based on patient's age to complete this topic Hepatitis B Vaccine Aged Out No longe r eligible based on patient's age to complete this topic MENINGOCOCCAL (MENACTRA/MENVEO) Aged Out No longer eligible based on patient's age to complete this topic documented as of this encounter Medical Devices Not on filedocumented as of this encounter Care Teams Oxyacetylene Welder Relationship Specialty Start Date End Date Arely Lui CRNP [address] [place] [address] PCP - General Nurse Practitioner 01/15/23 documented as of this encounter
--- OUTSIDE RECORDS SUMMARY | 2024-05-28 07:08 | External Medical Summary | Summary of Care ---
Author Name Unknown Organization [facility] Address [address] [facility] [place] [address] Phone [phone] Care Team Providers Care Acct Exec Name Role Phone Arely Tee Primary Care Provider [phone]- [phone] Reason for Visit * Reason Onset Date Comments Medication Refill 12/09/2023 Encounter Details Date Type Department Care Team (Late st Contact Info) Description 12/09/[address] [facility] [address] [place] [address] Arely Tee CRNP [address] [place] [address] Avascular necrosis of bone of hip, right (HCC); Generalized osteoarthritis of multiple sites Allergies No known active allergiesdocumented as of this encounter (statuses as of 12/12/2023) Medications Medication Sig Dispensed Refills Start Date End Date Status Acetaminophen ER 650 MG Oral Tablet Extended Release Take 1 Tablet by mouth every 8 hours as needed. Active Multi-Vitamins Oral Tablet Take 1 Tablet by mouth in the morning. Active Vitamin D 25 MCG (1000 UT) Oral Tablet Take by mouth. Active Krill Oil 500 MG Oral Capsule Take 1 Capsule by mouth in the morning. Active Fluconazole 150 MG Oral Tablet (Diflucan)Indications :Vaginal candidiasis Take 1 tab by mouth for vaginal yeast infection may repeat dose in 1 week if symptoms persist 2 Tablet 12/14/2022 Active Topiramate 25 MG Oral Tablet (topAMAX) Take 1 Tablet by mouth in the morning. 30 Tablet 5 07/15/2023 Active DULoxetine HCl 60 MG Oral Capsule Delayed Release Particles (Cymbalta)Indications :Avascular necrosis of bone of hip, right (HCC),Generalized osteoarthritis of multiple sites Take 1 Capsule by mouth in the morning. 90 Capsule 2 11/01/2023 Active documented as of this encounter (statuses as of 12/12/2023) Active Problems Problem Noted Date Diagnosed Date Body mass index (BMI) of 40.0 to 44.9 in adult 1 06/08/2022 Overview: Per Obesity protocol Primary osteoarthritis of right hip 12/14/2022 Primary osteoarthritis of both knees 12/14/2022 Avascular necrosis of bone of hip, right 023 Heart murmur 06/26/2022 Lymphedema 06/26/2022 Generalized osteoarthritis of multiple sites 10/2021 documented as of this encounter (statuses as of 12/12/2023) Immunizations Name Administration Dates Next Due Seasonal Influenza, PF, 6 M & above, IM , (FluLaval or Fluzone) 03/21/2023,03/31/2022,03/04/2021 TDAP (age 10 and older)(Boostrix) 06/26/2022 Zoster [...] the money to buy more. Never true 12/14/19 23 Within the past 12 months, t he food you bought just didn't last and you didn't have money to get more. Never true 12/13/2022 Childcare Answer Date Recorded Do you feel overwhelmed with taking care of a child, family member or friend? No 12/13/2022 Does your family need help f inding childcare? (Household - for ages 0-17 years) Not on file 12/13/2022 Clothing Answer Date Recorded Have you been unable to get clothing when it was really needed? No 12/13/2022 Is your family able to get c lothes or diapers when needed? (Household - for ages 0-17 years) Not on file 12/13/2022 Personal Safety Answer Date Recorded Do you feel unsafe or have concerns for your saf ety? No 12/13/2022 Do you have concerns for you r family's safety? (Household - for ages 0-17 years) Not on file 12/13/2022 Utilities Answer Date Recorded Do you have trouble paying y our heating, water, or electric bill? No 12/13/2022 Is your family able to pay t he heat, water, or electric bill? (Household - for ages 0-17 years) Not on file 12/13/2022 Does your family have access to good internet? (Household - for ages 0-17 years) Not on file 12/13/2022 Employment Status Answer Date Recorded Are you unemployed or without regular income? No 12/13/2022 [facility] the [facility] have a [facility]? (Household - for ages 0-17 years) Not on file 12/13/2022 Social Connections Answer Date Recorded How often do you feel lonely or isolated from th ose around you? Rarely 12/13/2022 Financial Resource Strain Answer Date R ecorded Do you have any trouble payi ng for your medications, or do you think you might in the future? No 12/13/2022 Does your family have troubl e paying for medicine? (Household - for ages 0-17 years) Not on file 12/13/2022 Transportation Needs Answer Date Record ed READ ONLY Do you have troubl e getting a ride to medical visits or work? Never True 12/13/2022 Does your family have a hard time getting a ride to doctors visits? (Household - for ages 0-17 years) Not on file 12/13/2022 Has lack of transportation k ept you from medical appointments, meetings, work, or from getting things needed for daily living? Check all that apply. (Adult - for ages 18 years and over) Not on file 12/13/2022 Do you (or your family) have trouble finding or paying for a ride (transportation)? (Household - for ages 0-17 years) Not on file 12/13/2022 Housing Stability Answer Date Recorded Do you currently live in a s helter or have no steady place to sleep at night? No 12/13/2022 READ ONLY Do you think you a re at risk of becoming homeless? No 12/13/2022 Does your family worry about paying for your home or becoming homeless? (Household - for ages 0-17 years) Not on file 0 12/13/2022 Are you homeless or worried that you might be in the future? (Adult - for ages 18 years and over) Not on file Are you (or your family) saulo eless or worried that you might be in the future? (Household - for ages 0-17 years) Not on file Food Insecurity Answer Date Recorded Do you need food for this week? No 12/13/2022 Are you able to get enough f ood for your family? (Household - for ages 0-17 years) Not on file 12/13/2022 Does your family need food t his week? (Household - for ages 0-17 years) Not on file 12/13/2022 Do you always have enough fo od for your family? (Household - for ages 0-17 years) Not on file 12/13/2022 Sex and Gender Information Value Date Recorded Sex Assigned at Female 01/27/2022 10:26 AM EDT Gender Identity Female 01/27/2022 10:26 AM EDT Sexual Orientation Straight 01/27/2022 10 :26 AM EDT Job Start Date Occupation Industry Not on file Not on file Not on file documented as of this encounter Miscellaneous Notes * Telephone Encounter - Arely Tee CRNP - 12/12/2023 11:37 AM EDTRefused Prescriptions: Disp Refills traMADol HCl 50 MG Oral Tablet (Ultram) 90 Tab*0 Sig: Take 1 Tablet by mouth every 6 hours as needed for Pain, Severe.Refused By: Amol TEE for Refusal: Duplicate Request * Telephone Encounter - Mervin Quiñonez [facility] - 12/11/2023 9:07 AM EDTPending Prescriptions: Disp Refills traMADol HCl 50 MG Oral Tablet (Ultram) 90 Tab*0 Sig: Take 1 Tablet by mouth every 6 hours as needed for Pain, Severe. * Telephone Encounter - Mervin Quiñonez [facility] - 12/11/2023 9:07 AM EDT I have reviewed the patients controlled substance dispensing history in the Prescription Drug Monitoring Program in compliance with the [facility] regulations before prescribing a controlled substance. PDMP checked on 12/11/2023. Pending Prescriptions: Disp Refills traMADol HCl 50 MG Oral Tablet (Ultram) 90 Tab*0 Sig: Take 1 Tablet by mouth every 6 hours as needed for Pain, Severe. Last Visit: 03/21/2023 (in office), 07/11/2023 (telemedicine) Next Visit: Visit date not found Date medication was last filled: 11/07/2023 Date medication is due for refill: 11/28/2023 Pharmacy: [id number] [facility] Is this request for a controlled substance? Yes and Urine Drug Screen Not completed Toxicology results: No results found for this or any previous visit. Please approve if appropriate. Thanks, Mervin Quiñonez Pharm.D. Clinical Pharmacist [facility] [phone] 12/11/2023, 9:07 AM documented in this encounter Plan of Treatment Upcoming Encounters Date Type Department Care Team (Late st Contact Info) Description 01/07/2024 12:20 PM EDT Telemedicine Nutrition & Weight Management, [facility] [address] [place] [address] Tesha Muñoz PA-C [address] [place] [address] Health Maintenance Due Date Last Done Comments HIV Screening 1973 Hepatitis C Screening 1976 Mammogram 1998 Cologuard 2003 Colonoscopy 2003 Colorectal Cancer Screening 2003 Fecal Occult Blood Test 2003 Sigmoidoscopy 2003 COVID-19 Vaccine ( - 2022-24 season) 2023 Depression Screening 06/26/2023 06/26/2022 DXA Scan 2023 Pneumococcal Vaccine: 65+ Years (1 of 1 - PCV) 2023 Influenza Vaccine (FLU shot) (#1) 2024 03/21/2023, 03/31/2022, 03/04/2021, Additional history exists Diabetes Screening 08/18/2026 08/19/2023, 0 08/16/2022, 01/30/2022 Lipid Panel 08/17/2027 08/16/2022 DTaP,Tdap,and Td Vaccines (2 - Td or Tdap) 06/26/2032 06/26/2022 Zoster Vaccines Completed 12/14/2022, 06/26/2022 HPV (Gardasil) Vaccine Aged Out No lo nger eligible based on patient's age to complete this topic Hepatitis B Vaccine Aged Out No longe r eligible based on patient's age to complete this topic MENINGOCOCCAL (MENACTRA/MENVEO) Aged Out No longer eligible based on patient's age to complete this topic documented as of this encounter Medical Devices Not on filedocumented as of this encounter Visit Diagnoses Diagnosis Avascular necrosis of bone of hip, right (HCC) Generalized osteoarthritis of multiple sites Generalized osteoarthrosis, involving multiple sites documented in this encounter Care Teams Acct Exec Relationship Specialty Start Date End Date Arely Tee CRNP [address] [place] [address] PCP - General Nurse Practitioner 01/15/23 documented as of this encounter
--- OUTSIDE RECORDS SUMMARY | 2024-05-28 07:08 | External Medical Summary | Summary of Care ---
Author Name Unknown Organization [facility] Address [address] [facility] [place] [address] Phone [phone] Care Team Providers Care Motor Vehicles Supervisor Name Role Phone Arely Lui Primary Care Provider +1- [phone] Encounter Details Date Type Department Care Team (Late st Contact Info) Description 01/07/2024 12:20 PM EDT Telemedicine Nutrition & Weight Management, [facility] [address] [place] [address] Tesha Muñoz PA-C [address] [place] [address] Morbid obesity due to excess calories (HCC)* Allergies No known active allergiesdocumented as of this encounter (statuses as of 01/07/2024) Medications Medication Sig Dispensed Refills Start Date [...] the morning. 90 Capsule 2 11/01/2023 Active traMADol HCl 50 MG Oral Tablet (Ultram)Indications:A vascular necrosis of bone of hip, right (HCC),Generalized osteoarthritis of multiple sites Take 1 Tablet by mouth every 6 hours as needed for Pain, Severe. 90 Tablet 3 12/12/2023 Active documented as of this encounter (statuses as of 01/07/2024) Active Problems Problem Noted Date Diagnosed Date Body mass index (BMI) of 40.0 to 44.9 in adult 1 06/08/2022 Overview: Per Obesity protocol Primary osteoarthritis of right hip 12/14/2022 Primary osteoarthritis of both knees 12/14/2022 Avascular necrosis of bone of hip, right 023 Heart murmur 06/26/2022 Lymphedema 06/26/2022 Generalized osteoarthritis of multiple sites 10/2021 documented as of this encounter (statuses as of 01/07/2024) Immunizations Name Administration Dates Next Due Seasonal [...] y our heating, water, or electric bill? (Adult - for ages 18 years and over) Not on file 12/21/2023 Is your family able to pay t he heat, water, or electric bill? (Household - for ages 0-17 years) Not on file 12/21/2023 Does your family have access to good internet? (Household - for ages 0-17 years) Not on file 12/21/2023 Employment Status Answer Date Recorded Are you unemployed or without regular income? No 12/13/2022 Does the household have a [facility] source of income? (Household - for ages 0-17 years) Not on file 12/13/2022 Social Connections Answer Date Recorded How often do you feel lonely or isolated from those around you? (Adult - for ages 18 years and over) Not on file 12/21/2023 Financial Resource Strain Answer Date R ecorded [...] on file documented as of this encounter Progress Notes * Tesha Muñoz PA-C - 01/07/2024 12:12 PM EDT Comprehensive Weight Management Clinic Note Patient location: HOME. I was in a hospital or clinic location. After connecting through televideo, patient was verified with two unique identifiers. Patient (or authorized legal enrollment eligibility representative) wasthen informed that this was a Telemedicine visit and being conducted confidentially over secure lines. Methods to assure confidentiality were taken. Patient acknowledged consent and understanding of privacy and security of the Telemedicine visit. The patient agreed to participate. There are no exam notes on file for this visit. Cleo Vasquez presents in follow up to the comprehensive weight management clinic. The patient is a 63 year old female Wt Readings from Last 6 Encounters: 03/21/23 118.4 kg (261 lb) 02/07/23 115.7 kg (255 lb) 09/12/22 126.2 kg (278 lb 4.8 oz) 06/26/22 132 kg (291 lb) Patient is receiving ongoing education regarding dietary and physical modifications for weight loss. - Initial clinic visit 08/16/22. Weight at that time was 291 lbs - Today's weight: 275lbs 01/07/24 -here to discuss restarting GLP1 medications -interested in [place] pay option 07/15/23 -off Ozempic since April d/t coverage -still needs BMI 40 for hip surgery 02/07/23 -on Ozemipc 1.0mg -tolerating well -will likely be losing coverage ([facility]) in Nov -needs BMI 40 for hip surgery 09/25/22 Behavior class No questions Is on ozempic 0.25mg weekly No change in medications or medical history 09/12/22 -Nutrition class -on ozempic 0.25mg -tolerating well, smaller portions Today's Visit 08/16/22 - Overall goal: 235lbs - BMI 40 to get hip replacement - Wt hx: has always struggled - Highest wt as adult: 325 lbs - Lowest wt as adult: 200lbs - Barriers: genetics, hip and knee pain limits exercise - Family weight hx: sister with bariatric surgery Patient Active Problem List Diagnosis Generalized osteoarthritis of multiple sites Avascular necrosis of bone of hip, right ([facility]) Heart murmur Lymphedema Primary osteoarthritis of right hip Primary osteoarthritis of both knees Body mass index (BMI) of 40.0 to 44.9 in adult ([facility]) Review of Systems: Review of Systems Gastrointestinal: Negative for abdominal pain, constipation, diarrhea, nausea and vomiting. Musculoskeletal: Positive for arthralgias and back pain. All other systems reviewed and are negative. Current Medications: Current Outpatient Medications Medication Sig Dispense Refill Acetaminophen ER 650 MG Oral Tablet Extended Release Take 1 Tablet by mouth every 8 hours as needed. Multi-Vitamins Oral Tablet Take 1 Tablet by mouth in the morning. Vitamin D 25 MCG (1000 UT) Oral Tablet Take by mouth. Krill Oil 500 MG Oral Capsule Take 1 Capsule by mouth in the morning. Fluconazole 150 MG Oral Tablet (Diflucan) Take 1 tab by mouth for vaginal yeast infection may repeat dose in 1 week if symptoms persist 2 Tablet 0 Topiramate 25 MG Oral Tablet (topAMAX) Take 1 Tablet by mouth in the morning. 30 Tablet 5 DULoxetine HCl 60 MG Oral Capsule Delayed Release Particles (Cymbalta) Take 1 Capsule by mouth in the morning. 90 Capsule 2 traMADol HCl 50 MG Oral Tablet (Ultram) Take 1 Tablet by mouth every 6 hours as needed for Pain, Severe. 90 Tablet 3 No current facility-administered medications for this visit. Water intake: yes Prescribed diet: [id number] Calorie Controlled Current diet: Breakfast-- banana and protein shake Snack-- skips Lunch-- apple, Smart Pop 80 Drew Snack-- skips Dinner-- eggs OR crockpot meal Snack-- Ratio yogurt and pretzels Drinks-- water, Coke zero Meals Away from Home-- 1x per week Food logs: No Type of exercise: ADL There were no vitals taken for this visit. PHYSICAL EXAMINATION: General: Patient is well appearing and in no acute distress. Skin: No obvious rashes. HEENT: Head is atraumatic, normocephalic. Cardiovascular: Regular rate and effort of breathing. No conversational dyspnea. No cyanosis. Neuro: No obvious focal neurological deficits. Psych: Appropriate mood and affect. Assessment and Plan: Abnormal weight gain / There is no height or weight on file to calculate BMI. / Morbid obesity : - Would like to proceed with medical management - Barriers are consistency. - Motivators are feeling better overall, avoiding/reducing co-morbid conditions. - The patient was encouraged to to avoid all fruit juices and regular sodas, consume at least 64 ounces of water per day, keep food logs and get weighed on a weekly basis. They were encouraged to increase physical activity as prescribed. - Handouts regarding nutrition and physical activity were provided, as appropriate. 1. Keep a food log. If you bite it, write it! Apps like Tamr or KitNipBoxpal Calorie goal: 1500 2. Drink 48-64 ounces of non-caloric beverages per day. No fruit juices or regular soda Try crystal light, propel, zero calorie flavored water, plain water 3. Goal of 30 minutes of exercise 5 days per week (150 minutes per week--can be divided up however you would like) Aim for aerobic activity and muscle strengthening activities 4. Increase fruit and vegetable servings to 5-6 per day. 1/2 of your plate should be fruits and vegetables 5. Eat 100-200 calories within 1-2 hours of awakening, and every 4 - 6 hours while awake. (3 meals with snacks in between) Choose 100 calorie or less snacks, protein snacks 7. Weight yourself weekly and follow trend over time (day to day weight fluctuations can be discouraging) 8. Decrease starches like bread, pasta, cereal, potatoes and corn. Aim for of your plate Try substitutions like zoodles, lentil pasta, cauliflower mashed potatoes, whole grain foods, quinoa Limit junk/processed foods Chips, pretzels, cookies, cakes, sweets White bread/rolls/wraps/bagels, white rice 9. Increase protein to feel full longer (1/4 of your plate) Diagnoses and all orders for this visit: Morbid obesity due to excess calories (HCC) -did well with Ozempic - unable to restart d/t current Geissinger criteria -recommend seeing alternative provider to discuss [employer] pay [employer] or Zepbound options -didn't tolerate topamax - nausea -consider adding wellbutrin -discussed restarting surgery program - not interested at this time -avoid phentermine, naltrexone - on tramadol -has made great dietary changes so far Abnormal weight gain Avascular necrosis of bone of hip, right (HCC) -needs BMI 40 for hip replacement -goal weight is 233lbs Lymphedema -following with wound care -increase protein to goal 80-100g per day The patient agreed to try the plan as discussed and return in PRN. They were encouraged to call or send a patient portal message in the meantime with any questions or concerns prior to their next clinic visit. I spent a total of 20 minutes on the date of service in preparation, delivery, and documentation ofthe care provided to Cleo Vasquez excluding any time spent in the performance of separately billed services. This included but was no limited to providing counseling about the benefits of weight loss, about their nutritional status, detailed explanations about calorie count, types of nutrients to choose, and composition of the meals. Motivational interview provided in order to prepare the patient to achieve future goals. Tesha Muñoz PA-C documented in this encounter Plan of Treatment Health Maintenance Due Date Last Done Comments [...] as of this encounter Visit Diagnoses Diagnosis Morbid obesity due to excess calories (HCC)- Primary documented in this encounter Care Teams Motor Vehicles Supervisor Relationship Specialty Start Date End Date Arely Lui CRNP [address] [place] [address] PCP - General Nurse Practitioner 01/15/23 documented as of this encounter
--- OUTSIDE RECORDS SUMMARY | 2024-05-28 07:08 | External Medical Summary | Summary of Care ---
Author Name Unknown Organization [facility] Address [address] [facility] [place] [address] Phone [phone] Care Team Providers Care Sales Department Clerk Name Role Phone Arely Lui Primary Care Provider +1- [phone] Reason for Visit * Reason Onset Date Comments FYI 02/26/2024 High BP Encounter Details Date Type Department Care Team (Late st Contact Info) Description 02/26/2024 Telephone Family Practice [facility] [address] [place] [address] Arely Lui CRNP [address] [place] [address] FYI (High BP) Allergies No known active allergiesdocumented as of this encounter (statuses as of 03/03/2024) Medications Medication Sig Dispensed Refills Start Date [...] as of this encounter (statuses as of 03/03/2024) Active Problems Problem Noted Date Diagnosed Date Body mass index (BMI) of 40.0 to 44.9 in adult 1 06/08/2022 Overview: Per Obesity protocol Primary osteoarthritis of right hip 12/14/2022 Primary osteoarthritis of both knees 12/14/2022 Avascular necrosis of bone of hip, right 023 Heart murmur 06/26/2022 Lymphedema 06/26/2022 Generalized osteoarthritis of multiple sites 10/2021 documented as of this encounter (statuses as of 03/03/2024) Immunizations Name Administration Dates Next Due Seasonal [...] No 12/13/2022 Does the household have a [facility] source of income? (Household - for ages [...] encounter Miscellaneous Notes * Telephone Encounter - Jennifer Sheth OSA - 03/03/2024 9:02 AM EDT Spoke w/ pt she already hs an appt set up with altaf on 03/10 wants to keep it as is * Telephone Encounter - Arely Lui CRNP - 02/27/2024 6:04 PM EDT Please schedule acute appointment * Telephone Encounter - Juliette Burt OSA - 02/26/2024 1:55 PM EDT Yasmeen called due to the pt's blood pressure being 160/100. All other vitals were fine. She wanted tomake PCP clinic aware of the reading. If appt is needed please advise. documented in this encounter Plan of Treatment Upcoming Encounters Date Type Department Care Team (Late st Contact Info) Description 03/10/2024 2:40 PM EDT Office Visit Family Practice [facility] [address] [place] [address] Altaf Marin CRNP [address] [place] [address] Health Maintenance Due Date Last Done Comments HIV Screening 1973 Hepatitis C Screening 1976 Mammogram 1998 Cologuard 2003 Colonoscopy 2003 Colorectal Cancer Screening 2003 Fecal Occult Blood Test 2003 Sigmoidoscopy 2003 Depression Screening 06/26/2023 06/26/2022 DXA Scan 2023 Pneumococcal Vaccine: 65+ Years (1 of 1 - PCV) 2023 COVID-19 Vaccine ( - 2023- season) 2024 Influenza Vaccine (FLU shot) (#1) 2024 03/21/2023, [...] filedocumented as of this encounter Care Teams Sales Department Clerk Relationship Specialty Start Date End Date Arely Lui CRNP [address] [place] [address] PCP - General Nurse Practitioner 01/15/23 documented as of this encounter
--- OUTSIDE RECORDS SUMMARY | 2024-05-28 07:08 | External Medical Summary | Summary of Care ---
Author Name Unknown Organization [facility] Address [address] [facility] [place] [address] Phone [phone] Care Team Providers Care Medical Consultant Name Role Phone Arely Lui Primary Care Provider +1- [phone] Reason for Visit * Reason Onset Date Comments FYI 02/26/2024 High BP Encounter Details Date Type Department Care Team (Late st Contact Info) Description 02/26/2024 Telephone Family Practice [facility] [address] [place] [address] Arely Lui CRNP [address] [place] [address] FYI (High BP) Allergies No known active allergiesdocumented as of this encounter (statuses as of 02/28/2024) Medications Medication Sig Dispensed Refills Start Date [...] as of this encounter (statuses as of 02/28/2024) Active Problems Problem Noted Date Diagnosed Date Body mass index (BMI) of 40.0 to 44.9 in adult 1 06/08/2022 Overview: Per Obesity protocol Primary osteoarthritis of right hip 12/14/2022 Primary osteoarthritis of both knees 12/14/2022 Avascular necrosis of bone of hip, right 023 Heart murmur 06/26/2022 Lymphedema 06/26/2022 Generalized osteoarthritis of multiple sites 10/2021 documented as of this encounter (statuses as of 02/28/2024) Immunizations Name Administration Dates Next Due Seasonal [...] No 12/13/2022 Does the household have a [facility] source [facility] income? (Household - for ages [...] Miscellaneous Notes * Telephone Encounter - Arely Lui CRNP [...] 03/10/2024 2:40 PM EDT Office Visit Family [facility] [address] [place] [address] Yenny Marin CRNP [address] [place] [address] Health Maintenance Due Date Last Done Comments HIV Screening 1973 Hepatitis C Screening 1976 Mammogram 1998 Cologuard 2003 Colonoscopy 2003 Colorectal Cancer Screening 2003 Fecal Occult Blood Test 2003 Sigmoidoscopy 2003 Depression Screening 06/26/2023 06/26/2022 DXA Scan 2023 Pneumococcal Vaccine: 65+ Years (1 of 1 - PCV) 2023 COVID-19 Vaccine (1 - season) 2024 Influenza Vaccine (FLU shot) (#1) [...] filedocumented as of this encounter Care Teams Medical Consultant Relationship Specialty Start Date End Date Arely Lui CRNP [address] [place] [address] PCP - General Nurse Practitioner 01/15/23 documented as of this encounter
--- OUTSIDE RECORDS SUMMARY | 2024-05-28 07:08 | External Medical Summary | Summary of Care ---
Author Name Unknown Organization [facility] Address [address] [facility] [place] [address] Phone [phone] Care Team Providers Care Jeweler Apprentice Name Role Phone Arely Tee Primary Care Provider +1- [phone] Reason for Visit * Reason Onset Date Comments Medication Refill 05/04/2024 Encounter Details Date Type Department Care Team (Late st Contact Info) Description 05/04/2024 Refill Family Practice [facility] [address] [place] [address] Arely Tee CRNP [address] [place] [address] Avascular necrosis of bone of hip, right (HCC); Generalized osteoarthritis of multiple sites Allergies No known active allergiesdocumented as of this encounter (statuses as of 05/12/2024) Medications Acetaminophen ER 650 MG Oral Tablet [...] week if symptoms persist 2 Tablet 12/15/19 Active Additional Information Patient not taking.Reported on 03/10/2024 DULoxetine HCl 60 MG Oral Capsule Delayed Release Particles (Cymbalta)Indicati ons:Avascular necrosis of bone of hip, right (HCC),Generalized osteoarthritis of multiple sites Take 1 Capsule by mouth in the morning. 90 Capsule 2 11/01/19 24 Active Celecoxib 200 MG Oral Capsule (CeleBREX)Indicati ons:Arthritis pain of hand Take 1 Capsule by mouth in the morning. For pain. 90 Capsule 3 03/10/20 24 Active traMADol HCl 50 MG Oral Tablet (Ultram)Indication s:Avascular necrosis of bone of hip, right (HCC),Generalized osteoarthritis of multiple sites Take 1 Tablet by mouth every 6 hours as needed for Pain, Severe. 90 Tablet 04/10/20 24 024 Discontin ued(Refil l) documented as of this encounter (statuses as of 05/12/2024) Active Problems Problem Noted Date Diagnosed Date Body mass index (BMI) of 40.0 to 44.9 in adult 1 06/08/2022 Overview: Per Obesity protocol Primary osteoarthritis of right hip 12/14/2022 Primary osteoarthritis of both knees 12/14/2022 Avascular necrosis of bone of hip, right 023 Heart murmur 06/26/2022 Lymphedema 06/26/2022 Generalized osteoarthritis of multiple sites 10/2021 documented as of this encounter (statuses as of 05/12/2024) Immunizations Name Administration Dates Next Due Seasonal [...] 03/10/2024 Does the household have a re lar source of income? (Household - for ages [...] Telephone Encounter - Arely Tee CRNP - 05/12/2024 11:18 AM ESTRefused Prescriptions: Disp Refills traMADol HCl 50 MG Oral Tablet (Ultram) 90 Tab*0 Sig: Take 1 Tablet by mouth every 6 hours as needed for Pain, Severe.Refused By: Reymundo TEEon for Refusal: Duplicate Request * Telephone Encounter - Nicole Pham [facility] - 05/05/2024 4:15 PM ESTPending Prescriptions: Disp Refills traMADol HCl 50 MG Oral Tablet (Ultram) 90 Tab*0 Sig: Take 1 Tablet by mouth every 6 hours as needed for Pain, Severe. * Telephone Encounter - Nicole Pham [facility] - 05/05/2024 4:15 PM EST I have reviewed the patients controlled substance dispensing history in the Prescription Drug Monitoring Program in compliance with the [facility] regulations before prescribing a controlled substance. PDMP checked on 05/05/2024. Pending Prescriptions: Disp Refills traMADol HCl 50 MG Oral Tablet (Ultram) 90 Tab*0 Sig: Take 1 Tablet by mouth every 6 hours as needed for Pain, Severe. Last Visit: 03/10/2024 (in office), 07/11/2023 (telemedicine) Next Visit: 09/08/2024 Date medication was last filled: 04/10 Date medication is due for refill: 05/02 Pharmacy: [id number] [place] Is this request for a controlled substance? Yes and Urine Drug Screen Not completed Toxicology results: No results found for this or any previous visit. Please approve if appropriate. Thank you, Nicole Pham, PharmD Clinical Pharmacist [facility] ([facility] [phone] 05/05/2024, 4:15 PM documented in this encounter Plan of Treatment Upcoming Encounters Date Type Department Care Team (Late st Contact Info) Description 09/08/2024 2:40 PM EDT Office Visit Family [facility] [address] [place] [address] Yenny Marin CRNP [address] [place] [address] Health Maintenance Due Date Last Done Comments [...] sites documented in this encounter Care Teams Jeweler Apprentice Relationship Specialty Start Date End Date Arely Tee CRNP [address] [place] [address] PCP - General Nurse Practitioner 01/15/23 documented as of this encounter
--- OUTSIDE RECORDS SUMMARY | 2024-05-28 07:08 | External Medical Summary | Summary of Care ---
Author Name Unknown Organization [facility] Address [address] [facility] [place] [address] Phone [phone] Care Team Providers Care Admissions Counselor Name Role Phone Arely Lui Primary Care Provider +1- [phone] Reason for Visit * Reason Comments eRx-Medication Refill Encounter Details Date Type Department Care Team (Late st Contact Info) Description 12/12/2023 Refill Family Practice [facility] [address] [place] [address] Arely Lui CRNP [address] [facility] [place] [address] Avascular necrosis of bone of hip, right (HCC); Generalized osteoarthritis of multiple sites Allergies No known active allergiesdocumented as of this encounter (statuses as of 12/13/2023) Medications Medication Sig Dispensed Refills Start Date [...] as of this encounter (statuses as of 12/13/2023) Active Problems Problem Noted Date Diagnosed Date Body mass index (BMI) of 40.0 to 44.9 in adult 1 06/08/2022 Overview: Per Obesity protocol Primary osteoarthritis of right hip 12/14/2022 Primary osteoarthritis of both knees 12/14/2022 Avascular necrosis of bone of hip, right 023 Heart murmur 06/26/2022 Lymphedema 06/26/2022 Generalized osteoarthritis of multiple sites 10/2021 documented as of this encounter (statuses as of 12/13/2023) Immunizations Name Administration Dates Next Due Seasonal [...] No 12/13/2022 Does the household have a [facility] source of income? (Household - for ages [...] encounter Miscellaneous Notes * Telephone Encounter - Michelle Caro [facility] - 12/13/2023 5:38 AM EDT Refused Prescriptions: Disp Refills traMADol HCl 50 MG Oral Tablet (Ultram) 90 Tab*0 Sig: TAKE ONE TABLET BY MOUTH EVERY 6 HOURS NEEDED FOR SEVERE PAINRefused By: MICHELLE CARO for Refusal: Duplicate Request documented in this encounter Plan of Treatment Upcoming Encounters Date Type Department Care Team (Late st Contact Info) Description 01/07/2024 12:20 PM EDT Telemedicine Nutrition & Weight Management, [facility] [address] [place] [address] Tesha Muñoz PA-C [address] [place] [address] Health Maintenance Due Date Last Done Comments [...] sites documented in this encounter Care Teams Admissions Counselor Relationship Specialty Start Date End Date Arely Lui CRNP [address] [facility] [place] [address] PCP - General Nurse Practitioner 01/15/23 documented as of this encounter
--- OUTSIDE RECORDS SUMMARY | 2024-05-28 07:08 | External Medical Summary | Summary of Care ---
Author Name Unknown Organization [facility] Address [address] [address] Phone [phone] Care Team Providers Care Director Of Planning Name Role Phone Arely Lui Primary Care Provider [phone]- [phone] Reason for Visit * Reason Onset Date Comments Acute Past 3 weeks inc reased BP, home health reported to pt concern. Medication Administration 03/10/2024 Flu an d/or Pneumo Inj Encounter Details Date Type Department Care Team (Latest Contact Info) Description 03/10/2024 2:40 PM EDT Office Visit Family Practice [facility] [address] [place] [address] Yenny Marin CRNP [address] [place] [id number] Labile hypertension*; Need for prophylactic vaccination and inoculation against influenza; Arthritis pain of hand; Lymphedema; Generalized osteoarthritis of multiple sites Allergies No known active allergiesdocumented as of this encounter (statuses as of 03/11/2024) Medications Medication Sig Dispensed Refills Start Date End Date Status Acetaminophen ER 650 MG Oral Tablet Extended Release Take 1 Tablet by mouth every 8 hours as needed. Active Multi-Vitamins Oral Tablet Take 1 Tablet by mouth in the morning. Active Krill Oil 500 MG Oral Capsule Take 1 Capsule by mouth in the morning. Active Fluconazole 150 MG Oral Tablet (Diflucan)Indicatio ns:Vaginal candidiasis Take 1 tab by mouth for vaginal yeast infection may repeat dose in 1 week if symptoms persist 2 Tablet 12/14/2022 Active Additional Information Patient not taking.Reported on 03/10/2024 DULoxetine HCl 60 MG Oral Capsule Delayed Release Particles (Cymbalta)Indicatio ns:Avascular necrosis of bone of hip, right (HCC),Generalized osteoarthritis of multiple sites Take 1 Capsule by mouth in the morning. 90 Capsule 2 11/01/2023 Active traMADol HCl 50 MG Oral Tablet (Ultram)Indications :Avascular necrosis of bone of hip, right (HCC),Generalized osteoarthritis of multiple sites Take 1 Tablet by mouth every 6 hours as needed for Pain, Severe. 90 Tablet 3 12/12/2023 Active Celecoxib 200 MG Oral Capsule (CeleBREX)Indicatio ns:Arthritis pain of hand Take 1 Capsule by mouth in the morning. For pain. 90 Capsule 3 03/10/2024 Active Vitamin D 25 MCG (1000 UT) Oral Tablet Take by mouth. 4 Discontinu ed(Medicat ion List Clean Up) Topiramate 25 MG Oral Tablet (topAMAX) Take 1 Tablet by mouth in the morning. 30 Tablet 5 07/15/2023 4 Discontinu ed(Medicat ion List Clean Up) documented as of this encounter (statuses as of 03/11/2024) Active Problems Problem Noted Date Diagnosed Date Body mass index (BMI) of 40.0 to 44.9 in adult 1 06/08/2022 Overview: Per Obesity protocol Primary osteoarthritis of right hip 12/14/2022 Primary osteoarthritis of both knees 12/14/2022 Avascular necrosis of bone of hip, right 023 Heart murmur 06/26/2022 Lymphedema 06/26/2022 Generalized osteoarthritis of multiple sites 10/2021 documented as of this encounter (statuses as of 03/11/2024) Immunizations Name Administration Dates Next Due Seasonal [...] ages 0-17 years) Not on file 03/10/2024 Sex and Gender Information Value Date Recorded Sex Assigned at Female 01/27/2022 10:26 AM EDT Gender Identity Female 01/27/2022 10:26 AM EDT Sexual Orientation Straight 01/27/2022 10 :26 AM EDT Job Start Date Occupation Industry Not on file Not on file Not on file documented as of this encounter Last Filed Vital Signs Vital Sign Reading Time Taken Comments Blood Pressure 122/76 03/10/2024 2:51 PM EDT Pulse 98 03/10/2024 2:51 PM EDT Temperature 36.8 C (98.2 F) 03/10/2024 2:51 PM ED T Respiratory Rate - - Oxygen Saturation 96% 03/10/2024 2:51 PM EDT Inhaled Oxygen Concentration - - Weight - - Height - - Body Mass Index - - documented in this encounter Progress Notes * Yenny Marin CRNP - 03/10/2024 2:55 PM EDT Images from the original note were not included. Follow up Family Medicine Visit History of Present Illness Cleo Vasquez is a very pleasant 63 year old female with PMH listed below presenting with BP. Here for elevated BP noted by home health nurse 160/100. Not using ibuprofen. Using adult large long size, her BP is 124/72 today. Denies chest pain, SOB, or headache. Patient has been taking Celebrex for hand arthritis - not working for hip pain but works well for arthritis, asking to refill today. Social History Socioeconomic History Marital status: Spouse name: Not on file Number of children: Not on file Years of education: Not on file Highest education level: Not on file Occupational History Not on file Tobacco Use Smoking status: Never Smokeless tobacco: Never Vaping Use Vaping status: Never Used Substance and Sexual Activity Alcohol use: Not Currently Drug use: Not Currently Types: Marijuana Comment: has medical marijuana card Sexual activity: Not Currently Partners: Male Other Topics Concern Not on file Social History Narrative Not on file Social Determinants of Health Financial Resource Strain: Low Risk (03/10/2024) Financial Resource Strain Do you have any trouble paying for your medications, or do you think you might in the future? (Adult - for ages 18 years and over): No Does your family have trouble paying for medicine? (Household - for ages 0-17 years): Not on file Food Insecurity: No Food Insecurity (03/10/2024) Food Insecurity Do you need food for this week? (Adult - for ages 18 years and over): No Are you able to get enough food for your family? (Household - for ages 0-17 years): Not on file Does your family need food this week? (Household - for ages 0-17 years): Not on file Do you always have enough food for your family? (Household - for ages 0-17 years): Not on file Transportation Needs: No Transportation Needs (03/10/2024) Transportation Needs Do you have trouble getting a ride to medical visits or work? (Adult - for ages 18 years and over):Not on file Does your family have a hard time getting a ride to doctors visits? (Household - for ages 0-17 years): Not on file Has lack of transportation kept you from medical appointments, meetings, work, or from getting things needed for daily living? Check all that apply. (Adult - for ages 18 years and over): No Do you (or your family) have trouble finding or paying for a ride (transportation)? (Household - for ages 0-17 years): Not on file Social Connections: Socially Integrated (03/10/2024) Social Connections How often do you feel lonely or isolated from those around you? (Adult - for ages 18 years and over): Never Housing Stability: Low Risk (03/10/2024) Housing Stability Do you currently live in a detention or have no steady place to sleep at night? (Adult - for ages 18 years and over): No Do you think you are at risk of becoming homeless? (Adult - for ages 18 years and over): Not on file Does your family worry about paying for your home or becoming homeless? (Household - for ages 0-17 years): Not on file Are you homeless or worried that you might be in the future? (Adult - for ages 18 years and over): No Are you (or your family) homeless or worried that you might be in the future? (Household - for ages0-17 years): Not on file PMH: Past Medical History: Diagnosis Date Primary osteoarthritis involving multiple joints Past Surgical History: Procedure Laterality Date DELIVERY x 2 EYE MUSCLE SURGERY FOLLOWUP Current Outpatient Medications Medication Sig Dispense Refill traMADol HCl 50 MG Oral Tablet (Ultram) Take 1 Tablet by mouth every 6 hours as needed for Pain, Severe. 90 Tablet 3 DULoxetine HCl 60 MG Oral Capsule Delayed Release Particles (Cymbalta) Take 1 Capsule by mouth in the morning. 90 Capsule 2 Krill Oil 500 MG Oral Capsule Take 1 Capsule by mouth in the morning. Acetaminophen ER 650 MG Oral Tablet Extended Release Take 1 Tablet by mouth every 8 hours as needed. Multi-Vitamins Oral Tablet Take 1 Tablet by mouth in the morning. Fluconazole 150 MG Oral Tablet (Diflucan) Take 1 tab by mouth for vaginal yeast infection may repeat dose in 1 week if symptoms persist (Patient not taking: Reported on 03/10/2024) 2 Tablet 0 No current facility-administered medications for this visit. Review of patient's allergies indicates: No Known Allergies Most Recent Immunizations Administered Date(s) Administered Seasonal Influenza, PF, 6 M & above, IM , (FluLaval or Fluzone) 03/21/2023 TDAP (age 10 and older)(Boostrix) 06/26/2022 Zoster Vaccine Recombinant (Shingrix) 12/14/2022 Review of Systems: Physical Exam There were no vitals taken for this visit. Physical Exam Constitutional: Appearance: Normal appearance. HENT: Head: Normocephalic. Cardiovascular: Rate and Rhythm: Normal rate and regular rhythm. Pulmonary: Effort: Pulmonary effort is normal. Breath sounds: Normal breath sounds. Musculoskeletal: General: Swelling present. Cervical back: Neck supple. Comments: +lymphedema Skin: General: Skin is warm. Neurological: Mental Status: She is alert and oriented to person, place, and time. Psychiatric: Mood and Affect: Mood normal. Assessment and Plan 1. Labile hypertension BP elevated when checked by home health nurse Pt feels cuff was smaller than what we used today She will buy her BP machine, larger arm cuff and recheck at home F/u pcp 2. Need for prophylactic vaccination and inoculation against influenza - INFLUENZA VAC, TRIVALENT, (IIV3), PF, 0.5 ML (FLUZONE) 3. Arthritis pain of hand - Celecoxib 200 MG Oral Capsule (CeleBREX); Take 1 Capsule by mouth in the morning. For pain. Dispense: 90 Capsule; Refill: 3 4. Lymphedema 5. Generalized osteoarthritis of multiple sites Wrap-Up I have advised the patient to call our office with any worsening or new symptoms. I spent a total of 30-39 minutes (exact time 30 mins) on the date of service in preparation, delivery, and documentation of the care provided to Cleo Vasquez excluding any time spent in the performance of separately billed services. Yenny Marin, MSN, NITA [facility] * Farshad Shah CMA - 03/10/2024 2:50 PM EDT PRE - ADMINISTRATION DOCUMENTATION Are you experiencing any cold symptoms or fever? No Have you had Guillain-Buckholts Syndrome (an illness that causes paralysis) within the last 6 weeks? No Have you had the flu shot in the past? YES Have you ever had a reaction to the flu shot? No Farshad Shah CMA, 03/10/2024 2:50 PM Immunization Administration Documentation Time Out Procedure Performed: Yes Patient Identified (Ask Name/Date of ): Yes Does the patient have a fever greater than 101 degrees today? No Patient allergic to latex? No VFC Stock: No Immunization(s) verified: Yes, Immunization Name: Flu, VIS Sheet(s) given: Yes Verified Side and Site: Yes Verified Shot(s) with Parent(s)/Patient: Yes documented in this encounter Nursing Notes * Farshad Shah CMA - 03/10/2024 2:50 PM EDT The patient has been properly identified by confirmation of name and date of . Chief Complaint Patient presents with Acute Past 3 weeks increased BP, home health reported to pt concern. Medication Administration Flu and/or Pneumo Inj documented in this encounter Plan of Treatment Upcoming Encounters Date Type Department Care Team (Late st Contact Info) Description 09/08/2024 2:40 PM EDT [facility] [address] [place] [address] Yenny Marin CRNP [address] [place] [address] Health Maintenance Due Date Last Done Comments HIV Screening 1973 Hepatitis C Screening 1976 Mammogram 1998 Cologuard 2003 Colonoscopy 2003 Colorectal Cancer Screening 2003 Fecal Occult Blood Test 2003 Sigmoidoscopy 2003 Depression Screening 06/26/2023 06/26/2022 DXA Scan 2023 Pneumococcal Vaccine: 65+ Years (1 of 1 - PCV) 2023 COVID-19 Vaccine (1 - 2023- season) 2024 Diabetes Screening 08/18/2026 08/19/2023, 0 [...] as of this encounter Visit Diagnoses Diagnosis Labile hypertension- Primary Unspecified essential hypertension Need for prophylactic vaccination and inoculation against influenza Arthritis pain of hand Unspecified arthropathy, hand Lymphedema Other lymphedema Generalized osteoarthritis of multiple sites Generalized osteoarthrosis, involving multiple sites documented in this encounter Care Teams Director Of Planning Relationship Specialty Start Date End Date Arely Lui CRNP [address] [place] [address] PCP - General Nurse Practitioner 01/15/23 documented as of this encounter
--- OUTSIDE RECORDS SUMMARY | 2024-05-28 07:08 | External Medical Summary | Summary of Care ---
Author Name Unknown Organization [facility] Address [address] [facility] [place] [address] Phone [phone] Care Team Providers Care Rolling Machine Tender Name Role Phone Arely Lui Primary Care Provider [phone]- [phone] Reason for Visit * Reason Onset Date Comments FYI 02/26/2024 High BP Encounter Details Date Type Department Care Team (Late st Contact Info) Description 02/26/2024 Telephone Family Practice [facility] [address] [place] [address] Arely Lui CRNP [address] [place] [address] FYI (High BP) Allergies No known active [...] No 12/13/2022 Does the household have a [facility]? (Household - [...] 03/10/2024 2:40 PM EDT Office Visit Family [facility] [address] [place] [address] Yenny Marin CRNP [address] [place] [address] Health Maintenance Due Date Last Done Comments [...] filedocumented as of this encounter Care Teams Rolling Machine Tender Relationship Specialty Start Date End Date Arely Lui CRNP [address] [place] [address] PCP - General Nurse Practitioner 01/15/23 documented as of this encounter
[2024-05-28 07:41] LABS: Basophils # (auto) 0.05 K/uL (0.00-0.20); Basophils % (auto) 0.3 %; Eosinophils # (auto) 0.32 K/uL (0.00-0.50); Hematocrit (blood only) 40.4 % (37.0-47.0); Hemoglobin 13.1 g/dl (12.0-16.0); Immature Granulocytes % (auto) 3.1 %; Lymphocytes # (auto) 0.33 K/uL (1.20-3.40); Mean Corpuscular Hemoglobin 32.1 pg (25.0-34.0); Mean Corpuscular Hgb Conc 32.4 g/dL (32.0-36.0); Mean Platelet Volume 9.6 fL (9.4-12.4); Monocytes # (auto) 0.67 K/uL (0.11-0.59); Monocytes % (auto) 4.1 %; Neutrophils # (auto) 14.32 K/uL (1.40-6.50); Neutrophils % (auto) 88.5 %; Platelet Count 203 K/uL (130-400); RDW Coefficient of Variation 12.7 % (11.5-14.5); RDW Standard Deviation 46.3 fL (36.4-46.3); Red Blood Count 4.08 M/uL (4.20-5.40); White Blood Count 16.19 K/ul (4.8-10.8)
--- NOTE | 2024-05-28 07:53 | Emergency Department Note ---
History of Present Illness General Chief complaint: Weakness Stated complaint: WEAKNESS Time Seen by Provider: 05/28/24 07:42 History of Present Illness Maximum Pain Intensity: 10 This is a 63-year-old female that presents to the emergency department via EMS with complaints of "weakness". The patient states that 2 days ago she began feeling unwell and noted upset stomach and vomiting. Patient also noted mild cough. No fever. Yesterday she had some chest pain and shortness of breath with bodyaches. Body aches have continued. She feels overall weak today and notes that while transferring did mildly bump the head against the walker. She did not lose consciousness. No headache. No anticoagulant use. Patient does note chronic knee and hip pain secondary to arthritis. She did note the in-home care nurse was ill as of recent. Patient does have home health Saturday, Saturday and Saturday. Patient denies any current chest pain or shortness of breath. Home Medications Medication Instructions Recorded Confirmed Type multivitamin 1 tab PO QAM #30 tabs 05/05/22 05/28/24 Rx celecoxib 200 mg capsule (Celebrex) 200 mg PO HS 04/24/23 05/28/24 History duloxetine 60 mg capsule,delayed 60 mg PO QAM 04/24/23 05/28/24 History release (Cymbalta) krill oil 500 mg capsule 500 mg PO BID 05/28/24 05/28/24 History tramadol 50 mg tablet 50 mg PO TID 05/28/24 05/28/24 History Allergies Allergy/AdvReac Type Severity Reaction Status Date / Time No Known Allergies Allergy Unverified 05/05/24 13:02 Past Med/Surg History Problem List (Updated 05/28/24 @ 16:58 by Sudhir Foley PA-C) Demand ischemia Atypical chest pain Generalized weakness (Acute) Fall (Acute) Cough (Acute) Elevated troponin (Acute) Traumatic open wound of left lower leg Venous ulcers of both lower extremities (Acute) Abnormal ankle brachial index Lymphedema (Chronic) Chronic venous insufficiency (Chronic) DJD (degenerative joint disease) Chronic right hip pain Ambulatory dysfunction (Acute) Leg swelling Medical History Elevated troponin UTI (urinary tract infection) Fall Chronic joint pain Obesity Bilateral leg pain Bilateral leg weakness Surgical History History of Family History Other Asthma Coronary heart disease Social History Smoking Status: Never smoker Second Hand Exposure: No; Do You Dip or Chew Tobacco: No; Tobacco Cessation Education Requested by Patient: No Hx Alcohol Use: No Hx Substance Use: No Preferred Language: Kazakh Communication Ability: Effective Visual Impairment: Limited Hearing Ability: Normal 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 High protien caffeine: No during the past year weight has: decreased > 10 lbs Assistive Devices: Glasses, Raised Toilet Seat and Walker Review of Systems A total of 10 systems reviewed and were otherwise negative Physical Exam Vital Signs Vital Signs - 24 hr 05/28/24 07:11 05/28/24 07:11 05/28/24 07:16 Temperature 36.5 C Temperature Source Oral Pulse Rate 102 H Pulse Rate [Apical] 102 H Respiratory Rate 22 22 Respiratory Effort / Characteristics Non-Labored Respiratory Depth Normal Normal Blood Pressure 122/65 Blood Pressure [Right Arm] 122/65 Blood Pressure Mean 84 Blood Pressure Mean [Right Arm] 84 Pulse Oximetry 95 95 Oxygen Delivery Method Room Air Room Air Room Air Sepsis Recent Fever Within 48 Hours No Sepsis New/Unexplained Change in Mental Status No Sepsis Action Taken by Nursing No Action Required 05/28/24 07:18 05/28/24 07:21 Temperature Temperature Source Pulse Rate 103 H Pulse Rate [Apical] Respiratory Rate Respiratory Effort / Characteristics Respiratory Depth Blood Pressure Blood Pressure [Right Arm] Blood Pressure Mean Blood Pressure Mean [Right Arm] Pulse Oximetry Oxygen Delivery Method Room Air Sepsis Recent Fever Within 48 Hours Sepsis New/Unexplained Change in Mental Status Sepsis Action Taken by Nursing VITAL SIGNS - Vital signs and nursing notes were reviewed. Mild tachycardia 103, otherwise stable and afebrile. GENERAL -63-year-old female appearing her stated age who is in no acute distress. Communicates well with provider and answers questions appropriately. SKIN - Without rashes. No meningeal or petechial rash. HEAD - NC/AT. EYES - PERRL with EOMI bilaterally. Sclera anicteric. EARS - No deformities of external structures noted on gross examination bilaterally. External auditory canals without discharge or otorrhea. Tympanic membranes pearly hurtado without retraction or bulging. No fluid or purulent material visualized behind the TM. Handle of malleus, umbo, cone of light, pars tensa/flaccid all easily visualized. NOSE - Midline and without cyanosis. No epistaxis or purulent drainage noted. Septum midline without deviation or septal hematoma noted. MOUTH/OROPHARYNX - Without perioral cyanosis. Buccal mucosa pink and moist and without leukoplakia. Tongue midline with equal elevation of palate bilaterally. No tonsillar hypertrophy, erythema, or exudates noted. Fair dentition noted. NECK - Neck with FROM. No nuchal rigidity. LUNGS -clear to auscultation CARDIAC - RRR ABDOMEN - Abdominal contour normal without pulsations or visible masses. BS normoactive all four quadrants. No guarding or rigidity. No tenderness, palpable masses, hepatosplenomegaly, or ascites noted. EXTREMITIES - No clubbing or peripheral cyanosis. Chronic lower extremity edema noted. +5/5 strength noted in UE/LE bilaterally. NEUROLOGIC - Cranial nerves grossly intact. PSYCH -alert, oriented and pleasant on exam. Course Administered Medications Acetaminophen (Acetaminophen 325 Mg Tab) 650 mg PO Q4H PRN PRN Reason: Pain or Fever Stop: 06/27/24 11:03 Last Admin: 05/29/24 02:36 Dose: 650 mg Documented By: Admin: 05/28/24 22:15 Dose: 650 mg Documented By: DN Celecoxib (Celebrex 200 Mg Cap) 200 mg PO HS MALINI Stop: 06/27/24 20:59 Last Admin: 05/28/24 21:06 Dose: 200 mg Documented By: DN Enoxaparin Sodium (Enoxaparin Inj 40 Mg/0.4 Ml Syr) 40 mg SQ Q12 MALINI Stop: 06/27/24 11:29 Last Admin: 05/28/24 21:06 Dose: 40 mg Documented By: Admin: 05/28/24 13:38 Dose: 40 mg Documented By: MMN Cefepime HCl (Maxipime 2000mg) 2,000 mg in 20 mls @ 5 mls/min IV Q8H MALINI; Protocol Stop: 05/30/24 17:59 Last Admin: 05/29/24 02:36 Dose: 5 mls/min Documented By: Admin: 05/28/24 20:02 Dose: 5 mls/min Documented By: RASHEED Metronidazole (Flagyl) 500 mg in 100 mls @ 100 mls/hr IV Q8H MALINI; Protocol Stop: 05/30/24 19:59 Last Infusion: 05/29/24 05:16 Dose: Infused Documented By: Admin: 05/29/24 03:58 Dose: 100 mls/hr Documented By: Infusion: 05/28/24 21:11 Dose: Infused Documented By: Admin: 05/28/24 20:07 Dose: 100 mls/hr Documented By: RASHEED Lactic Acid (Ammonium Lactate 12% Lotion 225 Gm Btl) 1 gm EXT HS MALINI Stop: 06/27/24 20:59 Last Admin: 05/28/24 20:15 Dose: 1 gm Documented By: RASHEED Lactobacillus Acidophilus (Advanced Probiotic 625 Mg Capsule) 1,250 mg PO DAILY MALINI Stop: 06/27/24 11:29 Last Admin: 05/28/24 13:37 Dose: 1,250 mg Documented By: BIMAL Tramadol HCl (Tramadol Hcl 50 Mg Tablet) 50 mg PO TID MALINI Stop: 06/27/24 13:59 Last Admin: 05/28/24 20:16 Dose: 50 mg Documented By: Admin: 05/28/24 13:13 Dose: 50 mg Documented By: BIMAL Discontinued Medications Azithromycin (Azithromycin 250 Mg Tab) 500 mg PO NOW ONE Stop: 05/28/24 08:34 Last Admin: 05/28/24 09:02 Dose: 500 mg Documented By: TAYLOR Sodium Chloride (Nss) 500 mls @ 125 mls/hr IV .Q4H MALINI Stop: 05/28/24 11:59 Last Infusion: 05/28/24 10:29 Dose: Infused Documented By: Admin: 05/28/24 07:56 Dose: 125 mls/hr Documented By: TAYLOR Ceftriaxone Sodium (Rocephin) 2,000 mg in 50 mls @ 100 mls/hr IV NOW STA Stop: 05/28/24 09:02 Last Infusion: 05/28/24 09:42 Dose: Infused Documented By: Admin: 05/28/24 09:02 Dose: 100 mls/hr Documented By: TAYLOR Acetaminophen (Ofirmev) 1,000 mg in 100 mls @ 400 mls/hr IV NOW STA Stop: 05/28/24 09:29 Last Infusion: 05/28/24 10:28 Dose: Infused Documented By: Admin: 05/28/24 10:13 Dose: 400 mls/hr Documented By: TAYLOR Sodium Chloride (Nss) 1,000 mls @ 80 mls/hr IV .[id number] MALINI Stop: 05/28/24 22:14 Last Infusion: 05/29/24 00:28 Dose: Infused Documented By: Admin: 05/28/24 10:13 Dose: 80 mls/hr Documented By: TAYLOR Cefepime HCl (Maxipime 2000mg) 2,000 mg in 20 mls @ 5 mls/min IV ONE STA; Protocol Stop: 05/28/24 10:48 Last Admin: 05/28/24 12:25 Dose: 5 mls/min Documented By: BIMAL Metronidazole (Flagyl) 500 mg in 100 mls @ 100 mls/hr IV ONE STA; Protocol Stop: 05/28/24 11:46 Last Infusion: 05/28/24 13:35 Dose: Infused Documented By: Admin: 05/28/24 12:25 Dose: 100 mls/hr Documented By: BIMAL Medical Decision Making Laboratory Data 05/29/24 03:00 05/29/24 03:00 Lab Results 05/28/24 05/28/24 05/28/24 Range/Units 07:14 07:35 08:56 WBC 16.19 H (4.8-10.8) K/ul RBC 4.08 L (4.20-5.40) M/uL Hgb 13.1 (12.0-16.0) g/dl Hct 40.4 (37.0-47.0) % MCV 99.0 (80.0-100.0) fL MCH 32.1 (25.0-34.0) pg MCHC 32.4 (32.0-36.0) g/dL RDW Std Deviation 46.3 (36.4-46.3) fL RDW Coeff of Da 12.7 (11.5-14.5) % Plt Count 203 (130-400) K/uL MPV 9.6 (9.4-12.4) fL Immature Gran % (Auto) 3.1 % Neut % (Auto) 88.5 % Lymph % (Auto) 2.0 % Crowley % (Auto) 4.1 % Eos % (Auto) 2.0 % Baso % (Auto) 0.3 % Neut # (Auto) 14.32 H (1.40-6.50) K/uL Lymph # (Auto) 0.33 L (1.20-3.40) K/uL Crowley # (Auto) 0.67 H (0.11-0.59) K/uL Eos # (Auto) 0.32 (0.00-0.50) K/uL Baso # (Auto) 0.05 (0.00-0.20) K/uL Immature Gran # (Auto) 0.50 H (0.01-0.20) K/uL Sodium 141 (136-145) mmol/L Potassium 4.3 (3.5-5.1) mmol/L Chloride 108 H (98-107) mmol/L Carbon Dioxide 21 (21-32) mmol/L Anion Gap 12 H (3-11) BUN 26 H (6-23) mg/dl Creatinine 1.02 (0.6-1.2) mg/dl Est Cr Clr Drug Dosing 76.8 ml/min eGFR 61.05 BUN/Creatinine Ratio 25.5 H (10-20) Glucose 100 H (70-99(Fasting)) mg/dl Estimat Average Glucose 100 mg/dl Hemoglobin A1c 5.1 (4.5-5.6) % Calcium 9.1 (8.6-10.3) mg/dl Total Bilirubin 0.9 (0.2-1.0) mg/dl AST 19 (13-39) U/L ALT 10 (7-52) U/L Alkaline Phosphatase 64 (34-104) U/L Troponin I High Sens 46.0 H 49.4 H (0-14) pg/ml Total Protein 6.7 (6.0-8.3) gm/dl Albumin 3.8 (3.4-5.0) gm/dl Globulin 2.9 (2.5-4.0) gm/dl Albumin/Globulin Ratio 1.3 (0.9-2) Triglycerides 73 (0-150) mg/dl Cholesterol 156 (0-200) mg/dl LDL Cholesterol, Calc 68 mg/dl VLDL Cholesterol, Calc 15 (0-30) mg/dl HDL Cholesterol 73 mg/dl Cholesterol/HDL Ratio 2.1 (0-5) Lipase 11 (11-82) U/L Procalcitonin 65.50 H (0-0.5) ng/ml TSH 0.755 (0.300-4.500) uIu/ml Adenovirus (PCR) Not Detected (NotDetected) B. pertussis DNA (PCR) Not Detected (NotDetected) B.parapertussis DNA PCR Not Detected (NotDetected) C. pneumoniae DNA (PCR) Not Detected (NotDetected) Coronavirus OC43 (PCR) Not Detected (NotDetected) Coronavirus HKU1 (PCR) Not Detected (NotDetected) Coronavirus 229E (PCR) Not Detected (NotDetected) SARS-CoV-2 (PCR) Not Detected (NotDetected) Coronavirus NL63 (PCR) Not Detected (NotDetected) Human Metapneumovir PCR Not Detected (NotDetected) Influenza Type A (PCR) Not Detected (NotDetected) Influenza Type B (PCR) Not Detected (NotDetected) M. pneumoniae (PCR) Not Detected (NotDetected) Parainfluenza 1 (PCR) Not Detected (NotDetected) Parainfluenza 2 (PCR) Not Detected (NotDetected) Parainfluenza 3 (PCR) Not Detected (NotDetected) Parainfluenza 4 (PCR) Not Detected (NotDetected) RSV (PCR) Not Detected (NotDetected) Entero/Rhino (PCR) Not Detected (NotDetected) Imaging Data Radiologist's Impression: Chest X-Ray 05/28/24 07:19 EXAM: XR chest 1V portable CLINICAL HISTORY: WEAKNESS JTF TECHNIQUE: An X-ray image of the chest is obtained in 1 AP projection. COMPARISON: 04/27/2022 CR. FINDINGS: Pulmonary Parenchyma: Lungs are clear bilaterally. No evidence of consolidation, collapse, or focal opacities. No pulmonary nodules are identified. Atelectatic bands seen in the right lower zone. Prominent bronchovascular markings seen bilaterally. No evidence of pleural effusion or pleural thickening. Heart and Mediastinum: Heart size and shape are normal. No mediastinal widening or masses. No hilar or mediastinal lymphadenopathy. Bony Thorax: Bony thorax appears intact without fractures or deformities. Soft Tissues: Soft tissues overlying the chest wall are unremarkable. IMPRESSION: 1. Prominent bronchovascular markings seen bilaterally, likely non specific however clinical and lab correlation is advised to rule out the possibility of mild pulmonary infection. 2. No evidence of consolidation or pleural effusion. 3. No significant interval changes. Electronically signed by Annalisa Radford 05-28-2024 08:15 AM MDM Narrative Patient was seen and evaluated as above in room B06. Review was performed of nursing notes and vital signs. I did review pertinent previous visits and patient history. After obtaining a thorough history and physical examination the above work up was performed. Patient presents to us today via EMS for assessment of overall feeling weak, in the setting of mild cough, nausea, vomiting, body aches. Patient denies any fever. Did have chest pain and shortness of breath yesterday but that has resolved. Vomiting last evening. No vomiting today. No diarrhea. On my assessment the patient has a benign abdominal examination. Patient clinically well-appearing and nontoxic. IV access with established. Labs were drawn. EKG was performed and per my interpretation reveals sinus tachycardia at a rate of 101 bpm. QTc 438. QRS 102. No ST elevation on this rhythm tracing. Chest x-ray was performed and does not reveal any large pneumonia however there is some prominent markings noted and will note right lower lung markings increased compared to previous. Developing pulmonary infection is possible. Maintenance fluids ordered. WBC elevated 16.19. No anemia. No hypotension. No fever. No tachypnea. There is suspected dehydration with BUN at 26 and mild gap elevation at 12. Troponin elevated at 46, will note previous were also mildly elevated but this is higher than previous. No current chest pain. Lipase normal. I did order IV ceftriaxone plus oral azithromycin for broad pulmonary coverage noting the cough and possible infection on the chest x-ray. Low suspicion for aspiration pneumonia at this time. Low suspicion for PE. I do suspect infectious etiology. At this time I do believe the patient would benefit from hospitalization. Case discussed with the hospitalist service. CT imaging considered of the head, chest as well as abdomen region however at this time we will refrain. Patient is not hypoxic. She has a benign abdominal exam. Although she notes that she bumped her head earlier, there was no loss of consciousness. No headache now. GCS 15. However, certainly clinical course will need to be trended and further evaluation and management will be needed. Please refer to further documentation regarding her stay. Blood cultures added. GCS: 15 In the evaluation and treatment of this patient the following differential diagnoses were entertained: HI, PE, viral URI, pneumonia, pneumothorax, UTI, among others Attending Attestation: I Rex Stein MD I have reviewed the advanced practitioner's documentation and agree with the plan of care. Admitted with concerns for pneumonia with likely some demand causing his mildly elevated troponin. I accept the responsibility for the associated risk of managing the patient. I performed a substantive portion of the visit including involvement in all aspects of medical decision making. Impression & Plan Elevated troponin, Cough, Fall, Generalized weakness Discharge Plan Visit Data Chief Complaint: Weakness Stated Complaint: WEAKNESS ED Provider: Rex Stein ED Midlevel Provider: Sudhir Foley Discharge Problem: Elevated troponin, Cough, Fall, Generalized weakness Patient Disposition: Admitted As Inpatient Condition: Good Discharge Instructions Interventions: ED Discharge Assessment Last Done: 05/28/24 11:05
[2024-05-28] MEDS: SODIUM CHLORIDE 0.9% 500 ML IV SCH (07:56)
[2024-05-28 08:07] LABS: Albumin Globulin Ratio 1.3 (0.9-2); Albumin Level 3.8 gm/dl (3.4-5.0); BUN Creatinine Ratio 25.5 (10-20); Bilirubin,Total 0.9 mg/dl (0.2-1.0); Calcium 9.1 mg/dl (8.6-10.3); Creatinine Clr Calc Pharmacy 76.8 ml/min; Globulin 2.9 gm/dl (2.5-4.0); Potassium 4.3 mmol/L (3.5-5.1); Total Protein 6.7 gm/dl (6.0-8.3)
--- NOTE | 2024-05-28 08:15 | XRay Report ---
EXAM: XR chest 1V portable CLINICAL HISTORY: WEAKNESS JTF TECHNIQUE: An X-ray image of the chest is obtained in 1 AP projection. COMPARISON: 04/27/2022 CR. FINDINGS: Pulmonary Parenchyma: Lungs are clear bilaterally. No evidence of consolidation, collapse, or focal opacities. No pulmonary nodules are identified. Atelectatic bands seen in the right lower zone. Prominent bronchovascular markings seen bilaterally. No evidence of pleural effusion or pleural thickening. Heart and Mediastinum: Heart size and shape are normal. No mediastinal widening or masses. No hilar or mediastinal lymphadenopathy. Bony Thorax: Bony thorax appears intact without fractures or deformities. Soft Tissues: Soft tissues overlying the chest wall are unremarkable. IMPRESSION: 1. Prominent bronchovascular markings seen bilaterally, likely non specific however clinical and lab correlation is advised to rule out the possibility of mild pulmonary infection. 2. No evidence of consolidation or pleural effusion. 3. No significant interval changes. Electronically signed by Annalisa Radford 05-28-2024 08:15 AM
[2024-05-28 08:22] LABS: Thyroid Stimulating Hormone 0.755 uIu/ml (0.300-4.500)
[2024-05-28 08:44] LABS: Adenovirus PCR Not Detected (NotDetected); Bordetella parapertussis PCR Not Detected (NotDetected); Bordetella pertussis PCR Not Detected (NotDetected); Chlamydia pneumoniae PCR Not Detected (NotDetected); Coronavirus 229E PCR Not Detected (NotDetected); Coronavirus CoV-2 (COVID19)PCR Not Detected (NotDetected); Coronavirus HKU1 PCR Not Detected (NotDetected); Coronavirus NL63 PCR Not Detected (NotDetected); Coronavirus OC43PCR Not Detected (NotDetected); Human Metapneumovirus PCR Not Detected (NotDetected); Influenza A PCR Not Detected (NotDetected); Influenza B PCR Not Detected (NotDetected); Mycoplasma pneumoniae PCR Not Detected (NotDetected); Parainfluenza Virus 1 PCR Not Detected (NotDetected); Parainfluenza Virus 2 PCR Not Detected (NotDetected); Parainfluenza Virus 3 PCR Not Detected (NotDetected); Parainfluenza Virus 4 PCR Not Detected (NotDetected); Respiratory Syncytial VirusPCR Not Detected (NotDetected); Rhinovirus/Enterovirus PCR Not Detected (NotDetected)
--- NOTE | 2024-05-28 08:56 | History & Physical Report ---
Date of Service May 28, 2024 Assessment & Plan (1) Generalized weakness: (2) Elevated troponin: (3) Atypical chest pain: Plan Cleo Vasquez is a 63-year-old female with past medical history significant for labile hypertension, generalized osteoarthritis of multiple sites on scheduled Tramadol, heart murmur, bilateral lower extremity lymphedema/venous stasis ulcers [follows with [facility]] and history of avascular necrosis of the right hip who presented to the ED via EMS on 05/28/2024 for evaluation of generalized weakness and nausea/vomiting x 2 days. Patient endorsing generalized weakness, nausea/vomiting and headache x 2 days. Her weakness has gotten to the point where she is having significant difficulty with ambulation. Of note, patient fell backwards and lightly struck the posterior aspect of her head off of her walker while trying to sit down earlier this morning which is what prompted her to call EMS. She did not lose consciousness during this minor fall. Patient also mentions that she had a 5 to 6-hour long episode yesterday where she was experiencing centralized chest pressure in addition to mild shortness of breath as well as nausea/vomiting. This has since resolved. Patient with no significant prior cardiac history except for labile hypertension [not currently on any antihypertensives]. Both of her parents however have significant history of heart disease; reports her dad under cardiac bypass previously, unsure if her mother has had any cardiac interventions/operations. Generalized Weakness Possible Sepsis: No clear infectious source however HR in the upper 90s-low 100s, WBC 16k. Patient currently without any respiratory complaints and continues to saturate well on RA. CXR --> Prominent bronchovascular markings bilaterally (likely nonspecific); no evidence of consolidation. -Respiratory BioFire panel negative. S/p 0.5L NSS in the ED. Continue gentle IVF. -UA still pending, procalcitonin significantly elevated at 65.5; blood cultures pending. -S/p IV Rocephin + po Zithromax in ED. Probiotic added on. -Continue ABX coverage with IV cefepime/Flagyl for now. Nasal MRSA swab pending. Elevated Troponin EKG Changes, Atypical Chest Pain: -Initial troponin 46, repeat troponin 49.4; concerning history as per above. -Inital EKG = sinus tachycardia with PACs plus aberrant conduction, no acute ST changes. -Repeat EKG = sinus rhythm with 1st degree AV block, left anterior fascicular block (unchanged from prior); no acute ST changes. -Resting echocardiogram pending. Cardiology consult pending (made Dr. Gomez aware via TT, ? may warrant stress testing). -Continue to trend troponin Q6H. EKG daily x 2. EKG with chest pain PRN. Continuous telemetry monitoring. Check Hgb A1c and lipid panel. Other Chronic Medical Conditions: * Generalized Osteoarthritis - Takes Tramadol 50mg TID, continue. Can also continue celecoxib and duloxetine. PT/OT consults pending. * BLE Lymphedema/Venous Stasis Ulcers - Follows with [facility]. No evidence of cellulitis; wound care consult pending. AmLactin ordered. Continue compression stockings. DVT Prophylaxis: SQ Lovenox Code Status: FULL CODE PCP: NITA Galvin Disposition: Admit to Med/Telemetry Patient seen in collaboration with Dr. Abbott. Please see addendum. I spent a total of 55 minutes coordinating, documenting, and providing care for this patient excluding time spent in the performance of separately billed services. This included personally reviewing all current laboratories and imag ing studies, medical reconciliation, outpatient chart review and discussion with specialists. This chart was completed in part utilizing Speech Voice Recognition Software. Grammatical errors, random word insertions, pronoun errors, and incomplete sentences are an occasional consequence of this system due to software limitations, ambient noise, and hardware issues. Any formal questions or concerns about the content, text, or information contained within the body of this dictation should be directly addressed to the provider for clarification. History of Present Illness Chief Complaint: Generalized Weakness & Vomiting x 2 Days Primary Care Provider: NITA Galvin Cleo Vasquez is a 63-year-old female with past medical history significant for labile hypertension, generalized osteoarthritis of multiple sites on scheduled Tramadol, heart murmur, bilateral lower extremity lymphedema/venous stasis ulcers [follows with [facility]] and history of avascular necrosis of the right hip who presented to the ED via EMS on 05/28/2024 for evaluation of generalized weakness and nausea/vomiting x 2 days. History obtained from the patient and associated chart review. Patient seen at bedside in the ED with Dr. Abbott. Patient endorsing generalized weakness, nausea/vomiting and headache over the past 2 days. Mention she has been hydrating well however her appetite has been decreased. Her weakness has gotten to the point where she is having significant difficulty with ambulation. Of note, patient fell backwards and lightly struck the posterior aspect of her head off of her walker while trying to sit down earlier this morning which is what prompted her to call EMS. She did not lose consciousness during this minor fall. Patient mentions that she had a 5 to 6-hour long episode yesterday where she was experiencing centralized chest pressure in addition to mild shortness of breath. This has since resolved. She was experiencing some nausea/vomiting when this event was ongoing however she did not become diaphoretic. Patient with no prior cardiac history except for labile hypertension for which she is not medicated for currently. She does mention both of her parents have significant history of heart disease; reports her dad had open heart surgery, unsure if her mother has had any cardiac interventions/operations previously. Mentions that her bilateral lower extremity lymphedema appears to be at baseline which some chronic dusky erythema. Patient follows with [facility] for this as well as bilateral lower extremity venous stasis ulcers. Patient reports that her wounds have been healing and remains stable. Uses AmLactin lotion on her legs at night and wears compression stockings daily. Patient denies any recent fevers, cough or chills. She has been urinating without issue recently; denies any discoloration of her urine. No overt abdominal pain. No smoking history or frequent alcohol use. No diarrhea or any other GI concerns except for the nausea/vomiting. Allergies Allergy/AdvReac Type Severity Reaction Status Date / Time No Known Allergies Allergy Unverified 05/05/24 13:02 Home Medications Medication Instructions Recorded Confirmed Type multivitamin 1 tab PO QAM #30 tabs 05/05/22 05/28/24 Rx celecoxib 200 mg capsule (Celebrex) 200 mg PO HS 04/24/23 05/28/24 History duloxetine 60 mg capsule,delayed 60 mg PO QAM 04/24/23 05/28/24 History release (Cymbalta) krill oil 500 mg capsule 500 mg PO BID 05/28/24 05/28/24 History tramadol 50 mg tablet 50 mg PO TID 05/28/24 05/28/24 History Past Med/Surg History Problem List Atypical chest pain Generalized weakness (Acute) Fall (Acute) Cough (Acute) Pneumonia (Acute) Elevated troponin (Acute) Traumatic open wound of left lower leg Venous ulcers of both lower extremities (Acute) Abnormal ankle brachial index Lymphedema (Chronic) Chronic venous insufficiency (Chronic) DJD (degenerative joint disease) Chronic right hip pain Ambulatory dysfunction (Acute) Leg swelling Medical History Elevated troponin UTI (urinary tract infection) Fall Chronic joint pain Obesity Bilateral leg pain Bilateral leg weakness Surgical History History of Family History Other Asthma Coronary heart disease Social History Smoking Status: Never smoker Hx Alcohol Use: No Hx Substance Use: No Preferred Language: Indonesian Communication Ability: Effective Visual Impairment: Limited Hearing Ability: Normal Computer Engineer Required: No Beliefs That Will Affect Care: None marital status: Current Living Situation: Spouse Current Living Situation Comment: current occupational status: retired How many Children do You have: 2 Feels Safe at Home: Yes Diet Comment: Love sugar. High protien caffeine: No during the past year weight has: decreased > 10 lbs Assistive Devices: Cane, Glasses and Walker Review of Systems Review of Systems: At least ten systems reviewed and negative, except as noted in the HPI. Physical Exam Physical Exam: Please refer to Dr. Abbott' addendum for physical examination findings. Results & Data Results & Data Vital Signs (Past 12 Hours) Vital Signs Temp Pulse Pulse Resp BP BP Pulse Ox 05/28/24 07:21 05/28/24 07:18 103 H 05/28/24 07:16 36.5 C 102 H 22 122/65 95 05/28/24 07:11 102 H 22 122/65 95 05/28/24 07:11 O2 Del Method 05/28/24 07:21 Room Air 05/28/24 07:18 05/28/24 07:16 Room Air 05/28/24 07:11 Room Air 05/28/24 07:11 Room Air Laboratory Results Short CBC 05/28/24 Range/Units 07:14 WBC 16.19 H (4.8-10.8) K/ul Hgb 13.1 (12.0-16.0) g/dl Hct 40.4 (37.0-47.0) % Plt Count 203 (130-400) K/uL BMP 05/28/24 07:14 Sodium 141 Potassium 4.3 Chloride 108 H Carbon Dioxide 21 BUN 26 H Creatinine 1.02 Glucose 100 H Calcium 9.1 Liver Function 05/28/24 Range/Units 07:14 Total Bilirubin 0.9 (0.2-1.0) mg/dl AST 19 (13-39) U/L ALT 10 (7-52) U/L Alkaline Phosphatase 64 (34-104) U/L Albumin 3.8 (3.4-5.0) gm/dl Diagnostic Findings Chest X-Ray 05/28/24 07:19 EXAM: XR chest 1V portable CLINICAL HISTORY: WEAKNESS JTF TECHNIQUE: An X-ray image of the chest is obtained in 1 AP projection. COMPARISON: 04/27/2022 CR. FINDINGS: Pulmonary Parenchyma: Lungs are clear bilaterally. No evidence of consolidation, collapse, or focal opacities. No pulmonary nodules are identified. Atelectatic bands seen in the right lower zone. Prominent bronchovascular markings seen bilaterally. No evidence of pleural effusion or pleural thickening. Heart and Mediastinum: Heart size and shape are normal. No mediastinal widening or masses. No hilar or mediastinal lymphadenopathy. Bony Thorax: Bony thorax appears intact without fractures or deformities. Soft Tissues: Soft tissues overlying the chest wall are unremarkable. IMPRESSION: 1. Prominent bronchovascular markings seen bilaterally, likely non specific however clinical and lab correlation is advised to rule out the possibility of mild pulmonary infection. 2. No evidence of consolidation or pleural effusion. 3. No significant interval changes. Electronically signed by Annalisa Radford 05-28-2024 08:15 AM Medications Administered Sodium Chloride (Nss) 500 mls @ 125 mls/hr IV .Q4H MALINI Stop: 05/28/24 11:59 Last Admin: 05/28/24 07:56 Dose: 125 mls/hr Documented By: MMG Code Status & VTE Plan Code Status FULL CODE Supervising Physician Co-Signing Physician Notes I have seen and discussed the case with the collaborating advanced practitioner. I agree with the above H&P. I have reviewed and confirmed the patients medical history, the findings on physical examination, and the patients diagnosis and treatment plan with Sourav ROLLINS and agree with the information documented. In short, Ms. Vasquez is a 63 yo woman with HTN, lymphedema who is admitted due to 2 days sudden onset weakness. Patient states that she just woke up feeling weak, the following day was met with chest pressure and AMAYA. No diaphoresis, no radiation. There was accompanied nausea and vomiting--but no diarrhea or other GI concerns. She is not on antihypertensives. She does not smoke. She does report family history of cardiac issues in both parents including bypass in father. She states her BLE are at Baseline--no pain, no oozing, the dusky erythema on BLE is stable per her reports and the wound in which she follows wound care for are stable. No fevers, cough, chills reported. GENERAL APPEARANCE: AxOx4, weak appearing woman HEENT: NC, AT. MMM. EOMI, clear conjunctiva HEART: Normal rate and regular rhythm, JESSICA++ LUNGS: CTAB, moving air well. No crackles or wheezes are heard. ABDOMEN: Soft, nontender, nondistended with good bowel sounds heard. EXTREMITIES: nonpitting bilateral edema NEUROLOGICAL: Grossly nonfocal. Alert and oriented, moving all 4 extremities. CN not formally tested but appear grossly intact. Observed to ambulate with normal gait. Skin: left circumfrential nontender nor warm erythema of LLE with small later ulceration that appears to be healing, small posterior patch of erythema (stable per patient) with small posterior ulceration healng with no signs of superimposed infection #General weakness #Possible Sepsis? (no clear infectious source, WBC 16, HR in 90s) Blood cultures ordered UA ordered (no urinary symptoms) procal 65, tsh wnl, biofire neg s/p 500cc NS 2/2 lymphedema and JESSICA, complicated volume status gentle IVF for now Cefepime flagyl ordered MRSA nare ordered wound consult for monitoring of lesions while admitted #Elevated troponin #EKG changes #Atypical Chest pain history convincing and concerning, tele monitoring repeat trop ECHO ordered Cards consult: ?for possible stress test given risk factors lipid panel and a1c I spent a total of 15 minutes coordinating, documenting, and providing care for this patient excluding time spent in the performance of separately billed services. All of the aforementioned completed outside of collaborating with the assigned advanced practitioner for a full treatment plan. I have reviewed the advanced practitioner's documentation, and I agree with, and take responsibility for the plan of care
[2024-05-28] MEDS: AZITHROMYCIN 250 MG TAB PO ONE (09:02)
[2024-05-28] MEDS: cefTRIAXone SODIUM 2,000 MG/50 ML BAG IV STA (09:02)
[2024-05-28] MEDS: ACETAMINOPHEN 1,000 MG/100 ML VIAL IV STA (10:13)
[2024-05-28] MEDS: SODIUM CHLORIDE 0.9% 1,000 ML IV SCH (10:13)
[2024-05-28] MEDS ORDERED: POLYETHYLENE (MIRALAX) 17 GM PACK PO PRN (11:04)
[2024-05-28] MEDS ORDERED: ONDANSETRON INJ 2 MG/ML 2 ML VIAL IV PRN (11:04)
[2024-05-28 11:08] LABS: Chol HDL Ratio 2.1 (0-5)
[2024-05-28 11:27] LABS: Estimated Average Glucose 100 mg/dl; Hemoglobin A1C 5.1 % (4.5-5.6)
--- NOTE | 2024-05-28 11:51 | Cardiology Consultation ---
Date of Consultation May 28, 2024 Assessment & Plan (1) Atypical chest pain: (2) Demand ischemia: (3) Lymphedema: Patient's presenting complaints consistent with noncardiac illness with recent nauseousness, vomiting, diarrhea with noted elevation in her procalcitonin level, leukocytosis with noted neutrophilia. High-sensitivity troponin mildly elevated with measurements of 46--> 49.4 PG per mL this morning with noted hyperdynamic left ventricular systolic function on echocardiogram and appearance and echocardiogram consistent with volume depletion. Presentation suggestive of demand myocardial ischemia and hypovolemia. Recommend ongoing fluid resuscitation. Viral respiratory panel negative, however symptoms suggestive of a viral gastroenteritis or even a norovirus illness. Future considerations include adding low-dose beta-clark, but think it is prudent just to proceed with fluid resuscitation and supportive care for now. Screening cholesterol level performed, LDL is well-controlled at 68 mg/dL without pharmacologic therapy. History of Present Illness Attending Physician: Zulma Abbott MD History of Present Illness Cleo Vasquez is a 63 year old female seen in cardiology consultation per the request of Nelida Benjamin PA-C for the evaluation of transient chest tightness and mild elevation in the high sensitivity troponin level. The patient denies any past cardiac history. Her past medical history is notable for morbid obesity, BMI 52.7 kg/m, ambulatory dysfunction with chronic hip pain for which she utilizes a walker at home and lymphedema with chronic lower extremity erythema and past cellulitis for which she is followed by the wound care clinic. She notes onset of feeling ill yesterday with nausea, vomiting, and diarrhea. She notes her home health aide had stayed home from work due to illness recently she does not know the specifics of what the home health worker's symptoms were. Yesterday the patient states that she felt significantly ill. She could tell her heart rate was elevated and could hear her pulse in her ear. She had a transient sensation of feeling tightness in her chest and feeling short of breath. As of last night and this morning thus far her chest symptoms and shortness of breath have resolved. This morning she was turning around utilizing her walker and had a mechanical fall without syncope. Telemetry reveals sinus rhythm in the 90s. Allergies Allergy/AdvReac Type Severity Reaction Status Date / Time No Known Allergies Allergy Unverified 05/05/24 13:02 Home Medications Medication Instructions Recorded Confirmed Type multivitamin 1 tab PO QAM #30 tabs 05/05/22 05/28/24 Rx celecoxib 200 mg capsule (Celebrex) 200 mg PO HS 04/24/23 05/28/24 History duloxetine 60 mg capsule,delayed 60 mg PO QAM 04/24/23 05/28/24 History release (Cymbalta) krill oil 500 mg capsule 500 mg PO BID 05/28/24 05/28/24 History tramadol 50 mg tablet 50 mg PO TID 05/28/24 05/28/24 History Patient History Medical History Elevated troponin UTI (urinary tract infection) Fall Chronic joint pain Obesity Bilateral leg pain Bilateral leg weakness Surgical History History of Family History Other Asthma Coronary heart disease Social History Smoking Status: Never smoker Hx Alcohol Use: No Hx Substance Use: No Preferred Language: Greek Communication Ability: Effective Visual Impairment: Limited Hearing Ability: Normal Youth Manager Required: No Beliefs That Will Affect Care: None marital status: Current Living Situation: Spouse Current Living Situation Comment: current occupational status: retired How many Children do You have: 2 Feels Safe at Home: Yes Diet Comment: Love sugar. High protien caffeine: No during the past year weight has: decreased > 10 lbs Assistive Devices: Cane, Glasses and Walker Review of Systems Review of Systems: All systems reviewed & are unremarkable except as noted in HPI & below Physical Exam Physical Exam: General: no acute distress and stated age Eyes: conjunctiva are pink and non-injected, sclera clear Neck: normal jugular venous pulse, no hepatojugular reflux Chest: normal shape and normal respiratory effort Lungs: clear to auscultation and percussion Cardiac Exam: - regular heart sounds, Borderline sinus tachycardia, no murmurs Abdomen: abdomen soft, non-tender, no abnormal masses and no hepatosplenomegaly Musculoskeletal: no gait disturbance, no weakness Extremities: Lower extremities with appearance of chronic lymphedema, mild bilateral pretibial erythema without debora cellulitic features Neuro:awake, conversant, follows commands, no focal motor deficits Psych: appropriate affect and insight. Results & Data Vital Signs (Past 12 Hours) Vital Signs Temp Pulse Pulse Resp BP BP Pulse Ox 05/28/24 09:17 96 H 22 140/70 95 05/28/24 07:21 05/28/24 07:18 103 H 05/28/24 07:16 36.5 C 102 H 22 122/65 95 05/28/24 07:11 102 H 22 122/65 95 05/28/24 07:11 O2 Del Method 05/28/24 09:17 Room Air 05/28/24 07:21 Room Air 05/28/24 07:18 05/28/24 07:16 Room Air 05/28/24 07:11 Room Air 05/28/24 07:11 Room Air Laboratory Results Cardiac Enzymes 05/28/24 05/28/24 Range/Units 07:14 08:56 AST 19 (13-39) U/L Troponin I High Sens 46.0 H 49.4 H (0-14) pg/ml Lipids 05/28/24 Range/Units 07:14 Triglycerides 73 (0-150) mg/dl Cholesterol 156 (0-200) mg/dl HDL Cholesterol 73 mg/dl Cholesterol/HDL Ratio 2.1 (0-5) CBC 05/28/24 Range/Units 07:14 WBC 16.19 H (4.8-10.8) K/ul RBC 4.08 L (4.20-5.40) M/uL Hgb 13.1 (12.0-16.0) g/dl Hct 40.4 (37.0-47.0) % Plt Count 203 (130-400) K/uL Neut # (Auto) 14.32 H (1.40-6.50) K/uL Lymph # (Auto) 0.33 L (1.20-3.40) K/uL Morris # (Auto) 0.67 H (0.11-0.59) K/uL Eos # (Auto) 0.32 (0.00-0.50) K/uL Baso # (Auto) 0.05 (0.00-0.20) K/uL Comprehensive Metabolic Panel 05/28/24 Range/Units 07:14 Sodium 141 (136-145) mmol/L Potassium 4.3 (3.5-5.1) mmol/L Chloride 108 H (98-107) mmol/L Carbon Dioxide 21 (21-32) mmol/L BUN 26 H (6-23) mg/dl Creatinine 1.02 (0.6-1.2) mg/dl Glucose 100 H (70-99(Fasting)) mg/dl Calcium 9.1 (8.6-10.3) mg/dl AST 19 (13-39) U/L ALT 10 (7-52) U/L Alkaline Phosphatase 64 (34-104) U/L Total Protein 6.7 (6.0-8.3) gm/dl Albumin 3.8 (3.4-5.0) gm/dl Intake and Output 05/27/24 05/28/24 05/28/24 22:59 06:59 14:59 Intake Total 650 / 650 Balance 650 / 650 Intake: IV 650 / 650 Acetaminophen 1,000 mg In 100 100 / 100 ml @ 400 mls/hr IV NOW STA Rx#: [id number] Sodium Chloride 0.9% 500 ml @ 500 / 500 125 mls/hr IV .Q4H [facility] Rx#: [id number] cefTRIAXone SODIUM 2,000 mg In 50 / 50 50 ml @ 100 mls/hr IV NOW STA Rx#:[id number] Other: Weight 139.2 kg Weight Measurement Method Built in [facility] Patient Weight 05/29/24 06:59 Weight 139.2 kg Diagnostic Findings Radiology report of chest x-ray described prominent bronchovascular markings bilaterally, nonspecific, no evidence of consolidation or pleural effusion EKG performed 05/28/2024 at 7:09 AM and interpret independently: Sinus tachycardia 101 bpm with occasional premature atrial contractions. The poor R wave progression noted in the precordial leads likely due to patient's body habitus. No significant ST segment elevation or depression observed. Compared to the previous tracing dating back to 04/28/2022, sinus tachycardia now present. The poor R wave progression is a chronic finding. Transthoracic echocardiogram performed 05/28/2024 and interpret independently: Study is technically difficult and limited due to patient characteristics/poor acoustic windows but adequate for the evaluation of the referral indication Sinus rhythm with rate ranging from 90 to 110 bpm present during echocardiogram. Mild concentric left ventricular hypertrophy is present. No regional wall motion abnormalities The left ventricular systolic function is hyperdynamic LVEF greater than 70%. The right ventricular chamber size and systolic function are normal. Mild left atrial enlargement noted. Mild aortic valve sclerosis without stenosis Grade 1 diastolic dysfunction
[2024-05-28] MEDS: metroNIDAZOLE 500 MG/100 ML BAG IV STA (12:25)
[2024-05-28] MEDS: CEFEPIME 2000MG 2,000 MG/20 ML SYR IV STA (12:25)
[2024-05-28] MEDS: traMADol HCL 50 MG TABLET PO SCH (13:13)
[2024-05-28] MEDS: ADVANCED PROBIOTIC 625 MG CAPSULE PO SCH (13:37)
[2024-05-28] MEDS: ENOXAPARIN INJ 40 MG/0.4 ML SYR SQ SCH (13:38)
--- NOTE | 2024-05-28 14:24 | Electrocardiogram Report ---
Test Reason : Blood Pressure : */* mmHG Vent. Rate : 101 BPM Atrial Rate : 101 BPM P-R Int : 208 ms QRS Dur : 102 ms QT Int : 338 ms P-R-T Axes : 30 -56 46 degrees QTcB Int : 438 ms Sinus tachycardia Premature ventricular complexes Left anterior fascicular block Moderate voltage criteria for LVH, may be normal variant ( R in aVL ) Poor R wave progression, consider anterior PR vs. lead placement vs. LVH Abnormal ECG When compared with ECG of 28-Apr-2022 14:44, Aberrant conduction is now Present ST elevation now present in Inferior leads Confirmed by Wicho Reese ([id number]) on 05/28/2024 2:23:38 PM Referred By: REFERRED SELF Confirmed By: Wicho Reese
[2024-05-28] MEDS: CEFEPIME 2000MG 2,000 MG/20 ML SYR IV SCH (20:02)
[2024-05-28] MEDS: metroNIDAZOLE 500 MG/100 ML BAG IV SCH (20:07)
[2024-05-28] MEDS: AMMONIUM LACTATE 12% LOTION 225 GM BTL EXT SCH (20:15)
[2024-05-28] MEDS: CeleBREX 200 MG CAP PO SCH (21:06)
[2024-05-28] MEDS: ACETAMINOPHEN 325 MG TAB PO PRN (22:15)
[2024-05-29 03:33] LABS: Hematocrit (blood only) 33.6 % (37.0-47.0); Hemoglobin 11.2 g/dl (12.0-16.0); Mean Corpuscular Hemoglobin 32.9 pg (25.0-34.0); Mean Corpuscular Hgb Conc 33.3 g/dL (32.0-36.0); Mean Corpuscular Volume 98.8 fL (80.0-100.0); Mean Platelet Volume 9.7 fL (9.4-12.4); Platelet Count 159 K/uL (130-400); RDW Coefficient of Variation 12.8 % (11.5-14.5); RDW Standard Deviation 45.8 fL (36.4-46.3); White Blood Count 12.42 K/ul (4.8-10.8)
[2024-05-29 03:48] LABS: BUN Creatinine Ratio 28.6 (10-20); Calcium 8.2 mg/dl (8.6-10.3); Creatinine Clr Calc Pharmacy 102.8 ml/min; Phosphorus 2.9 mg/dl (2.5-4.9); Potassium 3.5 mmol/L (3.5-5.1)
[2024-05-29 04:30] LABS: Appearance Urine Cloudy (Clear); Bacteria Urine Automated None Seen (None Seen); Bilirubin Urine Negative (Negative); Blood Urine 3+ (Negative); Cast Urine Automated 0-2 /lpf (0-2); Color Urine Yellow; Epithelial Cell Urine Auto 0-2 /hpf (0-2); Glucose Urine UA Negative (Negative); Ketones Urine Trace (Negative); Leukocyte Esterase Urine 2+ (Negative); Nitrite Urine Negative (Negative); Protein Urine 2+ (Negative); RBC Urine Automated >20 /hpf (0-2); Specific Gravity Urine 1.023 (1.000-1.030); Urobilinogen Urine Negative (Negative); WBC Urine Automated >50 /hpf (0-5); pH Urine 5.5 (4.5-7.5)
[2024-05-29] MEDS: MULTIVITAMIN TAB PO SCH (08:24)
[2024-05-29] MEDS: DULoxetine HCL 60 MG CAP PO SCH (08:25)
--- NOTE | 2024-05-29 09:49 | Cardiology Progress Note ---
Date of Service May 29, 2024 Assessment & Plan (1) Atypical chest pain: (2) Demand ischemia: (3) Lymphedema: Plan: Repeat EKG 05/29/2024 at 5:08 AM revealed sinus rhythm with first-degree AV block at 74 bpm. Baseline artifact noted, no significant repolarization abnormalities. Patient's presenting complaints consistent with noncardiac illness with recent nauseousness, vomiting, diarrhea with noted elevation in her procalcitonin level, leukocytosis with noted neutrophilia. High-sensitivity troponin mildly elevated with measurements of 46--> 49.4-->96.6-->98.8-->63.6 pg/mlPG per mL with noted hyperdynamic left ventricular systolic function on echocardiogram and appearance and echocardiogram consistent with volume depletion. Presentation suggestive of demand myocardial ischemia and hypovolemia. Viral respiratory panel negative, however symptoms suggestive of a viral gastroenteritis or even a norovirus illness. Received IV fluids which have been discontinued. Future considerations include adding low-dose beta-clark, but think it is p rudent just to proceed with fluid resuscitation and supportive care for now. Screening cholesterol level performed, LDL is well-controlled at 68 mg/dL without pharmacologic therapy. Recommend patient remains in hospital, 2 day nuclear stress test, first part on Saturday. Admission and Anticipated Discharge Date Admission Date: May 28, 2024 Subjective Patient seen in follow up. Denies chest pain or shortness of breath. One recent episode of diarrhea. Telemetry reveals sinus rhythm with rate in the range of 70 to 80 bpm. Review of Systems Review of Systems: All systems reviewed & are unremarkable except as noted in HPI & below Physical Exam Physical Exam: General: no acute distress and stated age Eyes: conjunctiva are pink and non-injected, sclera clear Neck: normal jugular venous pulse, no hepatojugular reflux Chest: normal shape and normal respiratory effort Lungs: clear to auscultation and percussion Cardiac Exam: - regular heart sounds, Borderline sinus tachycardia, no murmurs Abdomen: abdomen soft, non-tender, no abnormal masses and no hepatosplenomegaly Musculoskeletal: no gait disturbance, no weakness Extremities: Lower extremities with appearance of chronic lymphedema, mild bilateral pretibial erythema without debora cellulitic features Neuro:awake, conversant, follows commands, no focal motor deficits Psych: appropriate affect and insight. Results & Data Vital Signs (Past 12 Hours) Vital Signs Temp Pulse Pulse Resp BP BP Pulse Ox 01/03/25 08:26 36.6 C 83 18 137/83 98 05/29/24 03:14 37.1 C 88 18 156/83 H 96 05/29/24 00:32 100 H 05/28/24 22:35 05/28/24 22:12 37.6 C H 90 18 148/61 H 97 O2 Del Method 05/29/24 08:26 Room Air 05/29/24 03:14 Room Air 05/29/24 00:32 05/28/24 22:35 Room Air 05/28/24 22:12 Room Air
--- NOTE | 2024-05-29 11:03 | Hospitalist Progress Note ---
Date of Service May 29, 2024 Assessment & Plan (1) Generalized weakness: (2) Elevated troponin: (3) Atypical chest pain: Plan This is a 63-year-old F with PMH of labile hypertension, generalized osteoarthritis of multiple sites on scheduled Tramadol, heart murmur, bilateral lower extremity lymphedema/venous stasis ulcers (follows with [facility]) and history of avascular necrosis of the right hip who presented to the ED via EMS on 05/28/2024 for evaluation of generalized weakness and nausea/vomiting x 2 days. Generalized Weakness Possible Sepsis No clear infectious source however HR in the upper 90s-low 100s, WBC 16k, procal 65.5 WBC downtrending from 16 -> 12.42K Work up: resp viral panel negative, CXR with prominent bronchovascular markings bilaterally (likely nonspecific); no evidence of consolidation, UA abnormal with 2+ leuks, follow cx Added stool cx/ c diff today No abd pain - if develops, consider abdominal imaging Continue empiric Cefepime, Flagyl for now Follow urine, blood cultures, stool culture MRSA swab negative PT/OT consulted Elevated Troponin EKG Changes, Atypical Chest Pain: HS troponin 98.8 -> 63.6 -> 45.8 Inital EKG with sinus tachycardia with PACs plus aberrant conduction, no acute ST changes Telemetry overnight with NSR 2D echo - hyperdynamic left ventricular systolic function on echo, no wall motion abnormalities Cardiology consulted - presentation suggestive of demand ischemia and hypovolemia A1c and lipid panel within normal limits If patient remains admitted through weekend, plan for 2 day nuclear stress test (first part on Saturday) Other Chronic Medical Conditions: * Generalized Osteoarthritis - Takes Tramadol 50mg TID, continue. Can also continue celecoxib and duloxetine * BLE Lymphedema/Venous Stasis Ulcers - Follows with [facility]. No evidence of cellulitis; wound care consult pending. AmLactin ordered. Continue compression stockings. DVT Prophylaxis: SQ Lovenox Code Status: FULL CODE PCP: NITA Galvin Disposition: Admitted to Med/Telemetry - patient feels too weak to return home; interested in [facility]. CM placed referral Patient seen in collaboration with Dr. Munson. Please see addendum. I spent a total of 50 minutes coordinating, documenting, and providing care for this patient excluding time spent in the performance of separately billed services. This included personally reviewing all current laboratories and imaging studies, medical reconciliation, outpatient chart review and discussion with specialists. Admission and Anticipated Discharge Date Admission Date: May 28, 2024 Supervising Physician Co-Signing Physician Notes Attending addendum: The patient was seen and examined in medical telemetry unit She was admitted with generalized weakness and also chest pain Has been feeling a lot better and denies any more chest pain or palpitation She will need to have PT OT evaluation and pharmacologic stress test prior to discharge On examination Lying in bed without any apparent distress Hemodynamically stable Chestclear to auscultation bilaterally with decreased breath sounds at the bases HeartS1, S2 regular Abdomendistended, soft Extremity, bilateral lymphedema with minimal redness involving the legs more on the left but no evidence of infection Her labs and imaging studies reviewed Agree with assessment plan as outlined above by Madina Lynch PA-C and take the full responsibility of care in the hospital Dr Roxy Munson Subjective Seen and examined in 275-2. Endorsing 2 episodes of diarrhea since ED. Nausea improved. No CP, palpitations or SOB. Feels weak. No F/C or headache. Review of Systems Review of Systems: At least ten systems reviewed and negative except as noted in the HPI. Physical Exam Physical Exam: Gen: WD/WN, NAD, resting in bed, A&Ox3, obese HEENT: Normocephalic, atraumatic, conjunctivae moist, sclerae anicteric, mucous membranes moist Lung: Clear to Auscultation bilaterally, no wheezes/rales/rhonchi Heart: Regular rate, regular rhythm, no murmurs, rubs, or gallops Abdomen: Soft, NT, ND +BS x 4 Extremities: BLE lymphedema Skin: Warm, no rash, LLE lateral ulceration, healing, no signs of infection Results & Data Results & Data Vital Signs (Past 12 Hours) Vital Signs Temp Pulse Pulse Resp BP BP Pulse Ox 05/29/24 10:35 63 05/29/24 10:35 05/29/24 08:26 36.6 C 83 18 137/83 98 05/29/24 03:14 37.1 C 88 18 156/83 H 96 05/29/24 00:32 100 H O2 Del Method 05/29/24 10:35 05/29/24 10:35 Room Air 01/03/25 08:26 Room Air 05/29/24 03:14 Room Air 05/29/24 00:32 Laboratory Results Short CBC 05/29/24 Range/Units 03:00 WBC 12.42 H (4.8-10.8) K/ul Hgb 11.2 L (12.0-16.0) g/dl Hct 33.6 L (37.0-47.0) % Plt Count 159 (130-400) K/uL BMP 05/29/24 03:00 Sodium 137 Potassium 3.5 Chloride 109 H Carbon Dioxide 22 BUN 22 Creatinine 0.77 Glucose 106 H Calcium 8.2 L Urine 05/29/24 Range/Units 04:05 Urine Color Yellow Urine Appearance Cloudy A (Clear) Urine pH 5.5 (4.5-7.5) Ur Specific [place] 1.023 (1.000-1.030) Urine Protein 2+ H (Negative) Urine Glucose (UA) Negative (Negative) Diagnostic Findings Chest X-Ray 05/28/24 07:19 EXAM: XR chest 1V portable CLINICAL HISTORY: WEAKNESS J TECHNIQUE: An X-ray image of the chest is obtained in 1 AP projection. COMPARISON: 04/27/2022 CR. FINDINGS: Pulmonary Parenchyma: Lungs are clear bilaterally. No evidence of consolidation, collapse, or focal opacities. No pulmonary nodules are identified. Atelectatic bands seen in the right lower zone. Prominent bronchovascular markings seen bilaterally. No evidence of pleural effusion or pleural thickening. Heart and Mediastinum: Heart size and shape are normal. No mediastinal widening or masses. No hilar or mediastinal lymphadenopathy. Bony Thorax: Bony thorax appears intact without fractures or deformities. Soft Tissues: Soft tissues overlying the chest wall are unremarkable. IMPRESSION: 1. Prominent bronchovascular markings seen bilaterally, likely non specific however clinical and lab correlation is advised to rule out the possibility of mild pulmonary infection. 2. No evidence of consolidation or pleural effusion. 3. No significant interval changes. Electronically signed by Annalisa Radford 05-28-2024 08:15 AM
--- NOTE | 2024-05-29 13:24 | Electrocardiogram Report ---
Test Reason : Blood Pressure : */* mmHG Vent. Rate : 98 BPM Atrial Rate : 98 BPM P-R Int : 226 ms QRS Dur : 96 ms QT Int : 336 ms P-R-T Axes : 25 -55 43 degrees QTcB Int : 428 ms Sinus rhythm with 1st degree A-V block Left anterior fascicular block Moderate voltage criteria for LVH, may be normal variant ( R in aVL Possible Lateral infarct (cited on or before 27-Apr-2022) Abnormal ECG When compared with ECG of 28-May-2024 07:09, Aberrant conduction is no longer Present Confirmed by Wicho Reese ([id number]) on 05/29/2024 1:24:41 PM Referred By: REFERRED SELF Confirmed By: Wicho Reese
--- NOTE | 2024-05-29 14:55 | Electrocardiogram Report ---
Test Reason : Blood Pressure : */* mmHG Vent. Rate : 74 BPM Atrial Rate : 74 BPM P-R Int : 214 ms QRS Dur : 98 ms QT Int : 378 ms P-R-T Axes : 74 -45 0 degrees QTcB Int : 419 ms Sinus rhythm with 1st degree A-V block Left anterior fascicular block Possible Lateral infarct (cited on or before 27-Apr-2022) Abnormal ECG When compared with ECG of 28-May-2024 07:09, Questionable change in initial forces of Inferior leads Non-specific change in ST segment in Anterior leads Nonspecific T wave abnormality now evident in Lateral leads Confirmed by Wicho Reese ([id number]) on 05/29/2024 2:55:25 PM Referred By: REFERRED SELF Confirmed By: Wicho Reese
[2024-05-29] MEDS: MICONAZOLE NITRATE POWDER 85 GM EXT SCH (15:14)
[2024-05-29 19:32] LABS: Adenovirus F 40/41 PCR Not Detected (NotDetected); Astrovirus PCR Not Detected (NotDetected); Campylobacter PCR Not Detected (NotDetected); Cryptosporidium PCR Not Detected (NotDetected); Cyclospora cayetanensis PCR Not Detected (NotDetected); Entamoeba histolytica PCR Not Detected (NotDetected); Enteroaggregative E.coli(EAEC) Not Detected (NotDetected); Enteropathogenic E.coli (EPEC) Not Detected (NotDetected); Enterotoxigenic E.coli (ETEC) Not Detected (NotDetected); Giardia lamblia PCR Not Detected (NotDetected); Norovirus GI/GII PCR Not Detected (NotDetected); Plesiomonas shigelloides PCR Not Detected (NotDetected); Rotavirus A PCR Not Detected (NotDetected); Salmonella PCR Not Detected (NotDetected); Sapovirus PCR Not Detected (NotDetected); Shiga-like Toxin E.coli (STEC) Not Detected (NotDetected); Shigella/Enteroinvasive E.coli Not Detected (NotDetected); Vibrio cholerae PCR Not Detected (NotDetected); Vibrio species PCR Not Detected (NotDetected); Yersinia enterocolitica PCR Not Detected (NotDetected)
--- NOTE | 2024-05-30 07:16 | Hospitalist Progress Note ---
Date of Service May 30, 2024 Assessment & Plan (1) Generalized weakness: (2) Elevated troponin: (3) Atypical chest pain: Plan This is a 63-year-old F with PMH of labile hypertension, generalized osteoarthritis of multiple sites on scheduled Tramadol, heart murmur, bilateral lower extremity lymphedema/venous stasis ulcers (follows with [facility]) and history of avascular necrosis of the right hip who presented to the ED via EMS on 05/28/2024 for evaluation of generalized weakness and nausea/vomiting x 2 days. Generalized Weakness Possible Sepsis No clear infectious source however HR in the upper 90s-low 100s, WBC 16k, procal 65.5 WBC downtrending from 16 -> 9.47 Work up: resp viral panel negative, CXR with prominent bronchovascular markings bilaterally (likely nonspecific); no evidence of consolidation, UA abnormal with 2+ leuks No abd pain - if develops, consider abdominal imaging Continue empiric Cefepime, Flagyl for now BC NGTD, stool and urine cx negative; C. difficile toxin negative; discontinue Flagyl MRSA swab negative PT/OT consulted Elevated Troponin EKG Changes, Atypical Chest Pain: HS troponin 98.8 -> 63.6 -> 45.8 Inital EKG with sinus tachycardia with PACs plus aberrant conduction, no acute ST changes 2D echo - hyperdynamic left ventricular systolic function on echo, no wall motion abnormalities Cardiology consulted - presentation suggestive of demand ischemia and hypovolemia. given hypokalemia lymphedema; spironolactone started on 05/30 A1c and lipid panel WNL 2 day nuclear stress test (first part on Thursday 06/01) Hypokalemia: serum K+ 3.4; replaced with KCL 40mEq No arrhythmia on telemetry Trend BMP Other Chronic Medical Conditions: * Generalized Osteoarthritis - Takes Tramadol 50mg TID, continue. Can also continue celecoxib and duloxetine * BLE Lymphedema/Venous Stasis Ulcers - Follows with [facility]. No evidence of cellulitis; wound care consult pending. AmLactin ordered. Continue compression stockings. DVT Prophylaxis: SQ Lovenox Code Status: FULL CODE PCP: NITA Galvin Disposition: Admitted to Med/Telemetry - patient feels too weak to return home; interested in [facility]. CM placed referral; await placement for SNF Patient seen in collaboration with Dr. Munson. Please see addendum. I spent a total of 52 minutes coordinating, documenting, and providing care for this patient excluding time spent in the performance of separately billed services. This included personally reviewing all current laboratories and imaging studies, medical reconciliation, outpatient chart review and discussion with specialists. Admission and Anticipated Discharge Date Admission Date: May 28, 2024 Supervising Physician Co-Signing Physician Notes Attending addendum: The patient was seen and examined on 05/30/2024 and 05/31/2024 She has been stable and complains to have some pain in the eyes with sticking of the eyelids in the morning Denies any chest pain and/or palpitation Still having some diarrhea but denies any other significant symptoms On examination Lying in bed without any apparent distress Hemodynamically stable Chestclear to auscultation bilaterally with decreased breath sounds at the bases HeartS1, S2 regular Abdomennot distended, soft Extremity, bilateral lymphedema with minimal redness involving the legs more on the left but no evidence of infection Her labs and imaging studies reviewed Generalized weakness and she has been improving Will have pharmacological stress test tomorrow for atypical chest pain Has been getting antibiotic for possible pneumonia and UTI has been ruled out Agree with assessment and plan as outlined above by Lore MOYA and take the full responsibility of care in the hospital Dr Roxy Munson Subjective Pt seen for follow up. She said she had a bad night of sleep but just was feeling tired. She states that she has a h/o conjunctivitis and feels that her symptoms are starting; with itching eyes. On examination, eyes are non-erythematous without drainage. patient denies headache, dizziness, visual or auditory changes, chest pain, palpitations,, N/V/D. No known events overnight, no telemetry issues; remains sinus rhythm 60s to 70s. Hypokalemic this morning serum potassium 3.4; replaced with oral KCl See A/P for further details. Review of Systems Review of Systems: Neuro: (-) Falls, trauma, slurred speech HEENT: (-) [place], dizziness, dysphagia, visual or auditory changes CV: (-) CP, palpitations, swelling Resp: (-) SOB GI: (-) appetite changes, N/V/D, bowel changes : (-) urinary changes Skin: (-) rashes Psych: (-) anxiety, depression Physical Exam Physical Exam: Neuro: AAOx4, PERRLA, no aphagia, memory changes, CNII-XII grossly intact HEENT: head normocephalic, moist mucus membranes CV: S1/S2, (-) M/G/R, (-) edema, cap refill < 3 seconds Resp: Lungs CTA in all [place]. On RA GI: Abdomen large S/NT/ND, Ax4 bowel sounds, (-) CVA tenderness Musculoskeletal: 5/5 B/L UE strength, 5/5 B/L LE strength. Working with PT OT Skin: (-) rashes , (-) erythema. Bilateral lower extremity lymphedema. Psych: euthymic mood Results & Data Results & Data Vital Signs (Past 12 Hours) Vital Signs Temp Pulse Pulse Resp BP Pulse Ox O2 Del Method 05/30/24 03:09 36.9 C 71 18 145/85 H 94 Room Air 05/30/24 01:18 80 05/29/24 22:59 Room Air 05/29/24 22:49 37.4 C 76 18 167/88 H 95 Room Air Laboratory Results Short CBC 05/30/24 Range/Units 07:43 WBC 9.47 (4.8-10.8) K/ul Hgb 11.8 L (12.0-16.0) g/dl Hct 35.4 L (37.0-47.0) % Plt Count 144 (130-400) K/uL BMP 05/30/24 07:43 Sodium 139 Potassium 3.4 L Chloride 109 H Carbon Dioxide 24 BUN 12 Creatinine 0.50 L Glucose 95 Calcium 8.5 L
[2024-05-30 07:57] LABS: Hematocrit (blood only) 35.4 % (37.0-47.0); Hemoglobin 11.8 g/dl (12.0-16.0); Mean Corpuscular Hemoglobin 32.2 pg (25.0-34.0); Mean Corpuscular Hgb Conc 33.3 g/dL (32.0-36.0); Mean Corpuscular Volume 96.5 fL (80.0-100.0); Mean Platelet Volume 9.6 fL (9.4-12.4); Platelet Count 144 K/uL (130-400); RDW Coefficient of Variation 12.1 % (11.5-14.5); RDW Standard Deviation 43.2 fL (36.4-46.3); Red Blood Count 3.67 M/uL (4.20-5.40); White Blood Count 9.47 K/ul (4.8-10.8)
[2024-05-30 08:17] LABS: Calcium 8.5 mg/dl (8.6-10.3); Creatinine Clr Calc Pharmacy 154.9 ml/min; Potassium 3.4 mmol/L (3.5-5.1)
[2024-05-30] MEDS: POTASSIUM CHLORIDE CRTAB 20 MEQ TABCR PO STA (09:40)
--- NOTE | 2024-05-30 12:22 | Cardiology Progress Note ---
Date of Service May 30, 2024 Assessment & Plan (1) Atypical chest pain: (2) Demand ischemia: (3) HTN (hypertension): (4) Lymphedema: Plan: Patient's presenting complaints consistent with noncardiac illness with recent nauseousness, vomiting, diarrhea with noted elevation in her procalcitonin level, leukocytosis with noted neutrophilia. Several hours of chest pressure reported the day before hospital stay without recurrence. High-sensitivity troponin mildly elevated with measurements of 46--> 49.4-->96.6-->98.8-->63.6 pg/ml/PG per mL with noted hyperdynamic left ventricular systolic function on echocardiogram and appearance and echocardiogram consistent with volume depletion. Presentation suggestive of demand myocardial ischemia and hypovolemia. Screening cholesterol level performed, LDL is well-controlled at 68 mg/dL without pharmacologic therapy. Recommend patient remains in hospital, 2 day nuclear stress test, first part on Saturday. High BP noted, which apparently has been observed intermittently as outpatient in the setting of chronic pain. Has not been on a diuretic for lymphedema. Start spironolactone given high BP , low potassium, chronic LE edema. Admission and Anticipated Discharge Date Admission Date: May 28, 2024 Subjective Patient seen in cardiology follow up. Denies recurrent chest pain. Chronic hip pain noted. Nausea improved. Physical Exam Physical Exam: General: no acute distress and stated age Eyes: conjunctiva are pink and non-injected, sclera clear Neck: normal jugular venous pulse, no hepatojugular reflux Chest: normal shape and normal respiratory effort Lungs: clear to auscultation and percussion Cardiac Exam: - regular heart sounds, Borderline sinus tachycardia, no murmurs Abdomen: abdomen soft, non-tender, no abnormal masses and no hepatosplenomegaly Musculoskeletal: no gait disturbance, no weakness Extremities: Lower extremities with appearance of chronic lymphedema, mild bilateral pretibial erythema without debora cellulitic features Neuro:awake, conversant, follows commands, no focal motor deficits Psych: appropriate affect and insight. Results & Data Vital Signs (Past 12 Hours) Vital Signs Temp Pulse Pulse Resp BP Pulse Ox O2 Del Method 05/30/24 11:27 36.7 C 74 18 161/88 H 92 Room Air 05/30/24 10:11 Room Air 05/30/24 08:06 36.5 C 73 18 180/81 H 96 Room Air 05/30/24 07:31 72 05/30/24 03:09 36.9 C 71 18 145/85 H 94 Room Air 05/30/24 01:18 80 Laboratory Results CBC 05/30/24 Range/Units 07:43 WBC 9.47 (4.8-10.8) K/ul RBC 3.67 L (4.20-5.40) M/uL Hgb 11.8 L (12.0-16.0) g/dl Hct 35.4 L (37.0-47.0) % Plt Count 144 (130-400) K/uL Comprehensive Metabolic Panel 05/30/24 Range/Units 07:43 Sodium 139 (136-145) mmol/L Potassium 3.4 L (3.5-5.1) mmol/L Chloride 109 H (98-107) mmol/L Carbon Dioxide 24 (21-32) mmol/L BUN 12 (6-23) mg/dl Creatinine 0.50 L (0.6-1.2) mg/dl Glucose 95 (70-99(Fasting)) mg/dl Calcium 8.5 L (8.6-10.3) mg/dl Intake and Output 05/29/24 05/30/24 05/30/24 22:59 06:59 14:59 Intake Total 560 / 1320 340 / 1320 Output Total 200 / 1002 300 / 1002 Balance 360 / 318 40 / 318 Intake: IV 100 / 300 100 / 300 metroNIDAZOLE 500 mg In 100 ml 100 / 300 100 / 300 @ 100 mls/hr IV Q8H [facility] Rx#: [id number] Oral 460 / 1020 240 / 1020 Output: Urine Amount (Catheter) 200 / 1000 300 / 1000 External 200 / 1000 300 / 1000 Other: # Unmeasured Voids 1 Weight 136.6 kg Weight Measurement Method Built in [facility]
[2024-05-30] MEDS: SPIRONOLACTONE 25 MG TAB PO SCH (14:17)
[2024-05-31 07:28] LABS: Hematocrit (blood only) 35.4 % (37.0-47.0); Hemoglobin 11.9 g/dl (12.0-16.0); Mean Corpuscular Hemoglobin 32.6 pg (25.0-34.0); Mean Corpuscular Hgb Conc 33.6 g/dL (32.0-36.0); Mean Platelet Volume 10.6 fL (9.4-12.4); Platelet Count 165 K/uL (130-400); RDW Coefficient of Variation 11.8 % (11.5-14.5); RDW Standard Deviation 42.1 fL (36.4-46.3); Red Blood Count 3.65 M/uL (4.20-5.40); White Blood Count 6.52 K/ul (4.8-10.8)
[2024-05-31 07:45] LABS: BUN Creatinine Ratio 16.3 (10-20); Calcium 8.5 mg/dl (8.6-10.3); Potassium 3.5 mmol/L (3.5-5.1)
--- NOTE | 2024-05-31 07:58 | Hospitalist Progress Note ---
Date of Service May 31, 2024 Assessment & Plan (1) Generalized weakness: (2) Elevated troponin: (3) Atypical chest pain: Plan This is a 63-year-old F with PMH of labile hypertension, generalized osteoarthritis of multiple sites on scheduled Tramadol, heart murmur, bilateral lower extremity lymphedema/venous stasis ulcers (follows with [facility]) and history of avascular necrosis of the right hip who presented to the ED via EMS on 05/28/2024 for evaluation of generalized weakness and nausea/vomiting x 2 days. Generalized Weakness Possible Sepsis No clear infectious source however HR in the upper 90s-low 100s WBC downtrending from 16 -> 6.52 Work up: resp viral panel negative, CXR with prominent bronchovascular markings bilaterally (likely nonspecific); no evidence of consolidation, UA abnormal with 2+ leuks No abd pain - if develops, consider abdominal imaging Continue empiric Cefepime BC NGTD, stool and urine cx negative; C. difficile toxin negative; discontinue Flagyl This AM 05/31 liquid diarrhea started; recheck for CD. If negative can give Immodium MRSA swab negative PT/OT consulted Elevated Troponin EKG Changes, Atypical Chest Pain: HS troponin 98.8 -> 63.6 -> 45.8 Inital EKG with sinus tachycardia with PACs plus aberrant conduction, no acute ST changes 2D echo - hyperdynamic left ventricular systolic function on echo, no wall motion abnormalities Cardiology consulted - presentation suggestive of demand ischemia and hypovolemia. given hypokalemia lymphedema; spironolactone started on 05/30 A1c and lipid panel WNL 2 day nuclear stress test (first part on Thursday 06/01) HTN: Pt with SBP 170-190 Was started on Spironolactone 05/30 by Cardiology and Losartan added on 05/31 Hypokalemia: hypokalemia resolved today. Serum K+ 3.5 No arrhythmia on telemetry Trend BMP Other Chronic Medical Conditions: * Generalized Osteoarthritis - Takes Tramadol 50mg TID, continue. Can also continue celecoxib and duloxetine * BLE Lymphedema/Venous Stasis Ulcers - Follows with [facility]. No evidence of cellulitis; wound care consult pending. AmLactin ordered. Continue compression stockings. DVT Prophylaxis: SQ Lovenox Code Status: FULL CODE PCP: NITA Galvin Disposition: Admitted to Med/Telemetry - patient feels too weak to return home; interested in [facility]. CM placed referral; await placement for SNF Patient seen in collaboration with Dr. Munson. Please see addendum. I spent a total of 53 minutes coordinating, documenting, and providing care for this patient excluding time spent in the performance of separately billed services. This included personally reviewing all current laboratories and imaging studies, medical reconciliation, outpatient chart review and discussion with specialists. Admission and Anticipated Discharge Date Admission Date: May 28, 2024 Supervising Physician Co-Signing Physician Notes Attending addendum: The patient was seen and examined on 05/30/2024 and 05/31/2024 She has been stable and complains to have some pain in the eyes with sticking of the eyelids in the morning Denies any chest pain and/or palpitation Still having some diarrhea but denies any other significant symptoms On examination Lying in bed without any apparent distress Hemodynamically stable Chestclear to auscultation bilaterally with decreased breath sounds at the bases HeartS1, S2 regular Abdomennot distended, soft Extremity, bilateral lymphedema with minimal redness involving the legs more on the left but no evidence of infection Her labs and imaging studies reviewed Generalized weakness and she has been improving Will have pharmacological stress test tomorrow for atypical chest pain Has been getting antibiotic for possible pneumonia and UTI has been ruled out Agree with assessment and plan as outlined above by Lore MOYA and take the full responsibility of care in the hospital Dr Roxy Munson Subjective Pt seen for follow up. She said she had a bad night of sleep but just was feeling tired. Her diarrhea has returned; nursing reports seeing blood in her stool. Hgb 11.9 Her SBP remains elevated today; 170-190; was started on Aldactone by Cards on 05/30. Cards added Losartan on 05/31. She states that she has a h/o conjunctivitis and feels that her symptoms are starting; with itching eyes. On examination, eyes are non-erythematous without drainage.; added Ofloxacin gtts Patient denies headache, dizziness, visual or auditory changes, chest pain, palpitations. No known events overnight, no telemetry issues; remains sinus rhythm 60s to 70s. See A/P for further details. Review of Systems Review of Systems: Neuro: (-) Falls, trauma, slurred speech HEENT: (-) [place], dizziness, dysphagia, visual or auditory changes CV: (-) CP, palpitations, swelling Resp: (-) SOB GI: (-) appetite changes, (-) N/V, (+) liquid diarrhea, bowel changes : (-) urinary changes Skin: (-) rashes Psych: (-) anxiety, depression Physical Exam Physical Exam: Neuro: AAOx4, PERRLA, no aphagia, memory changes, CNII-XII grossly intact HEENT: head normocephalic, moist mucus membranes CV: S1/S2, (-) M/G/R, (-) edema, cap refill < 3 seconds Resp: Lungs CTA in all prado. On RA GI: Abdomen large S/NT/ND, Ax4 bowel sounds, (-) CVA tenderness Musculoskeletal: 5/5 B/L UE strength, 5/5 B/L LE strength. Working with PT OT Skin: (-) rashes , (-) erythema. Bilateral lower extremity lymphedema. Psych: euthymic mood Results & Data Results & Data Vital Signs (Past 12 Hours) Vital Signs Temp Pulse Pulse Resp BP Pulse Ox O2 Del Method 05/31/24 03:04 36.8 C 74 18 140/83 90 Room Air 05/31/24 00:39 75 05/30/24 23:14 37.1 C 76 16 161/81 H 93 Room Air 05/30/24 20:05 36.9 C 76 18 171/68 H 95 Room Air Laboratory Results Short CBC 05/31/24 Range/Units 06:30 WBC 6.52 (4.8-10.8) K/ul Hgb 11.9 L (12.0-16.0) g/dl Hct 35.4 L (37.0-47.0) % Plt Count 165 (130-400) K/uL BMP 05/31/24 06:30 Sodium 139 Potassium 3.5 Chloride 107 Carbon Dioxide 25 BUN 7 Creatinine 0.43 L Glucose 87 Calcium 8.5 L
[2024-05-31] MEDS: OFLOXACIN 0.3% 75 DROPS/5 ML BTL OP SCH (11:20)
--- NOTE | 2024-05-31 12:54 | Cardiology Progress Note ---
Date of Service May 31, 2024 Assessment & Plan (1) Atypical chest pain: (2) Demand ischemia: (3) HTN (hypertension): (4) Lymphedema: Plan: Patient's presenting complaints consistent with noncardiac illness with recent nauseousness, vomiting, diarrhea with noted elevation in her procalcitonin level, leukocytosis with noted neutrophilia. Several hours of chest pressure reported the day before hospital stay without recurrence. High-sensitivity troponin mildly elevated with measurements of 46--> 49.4-->96.6-->98.8-->63.6 pg/ml/PG per mL with noted hyperdynamic left ventricular systolic function on echocardiogram and appearance and echocardiogram consistent with volume depletion. Presentation suggestive of demand myocardial ischemia and hypovolemia. Screening cholesterol level performed, LDL is well-controlled at 68 mg/dL without pharmacologic therapy. Recommend patient remains in hospital, 2 day nuclear stress test, first part on Saturday. High BP noted, which apparently has been observed intermittently as outpatient in the setting of chronic pain. Has not been on a diuretic for lymphedema. Start spironolactone 05/30/2024. Start losartan 05/31/2024. Monitor kidney function/electrolytes. N.p.o. after midnight for part 1 of nuclear stress test tomorrow. No caffeine for 12 hours before test. Admission and Anticipated Discharge Date Admission Date: May 28, 2024 Subjective Patient seen in cardiology follow up. Denies additional chest pain or shortness of breath. Still with diarrhea. +Chronic hip pain. Physical Exam Physical Exam: General: no acute distress and stated age Eyes: conjunctiva are pink and non-injected, sclera clear Neck: normal jugular venous pulse, no hepatojugular reflux Chest: normal shape and normal respiratory effort Lungs: clear to auscultation and percussion Cardiac Exam: - regular heart sounds, Borderline sinus tachycardia, no murmurs Abdomen: abdomen soft, non-tender, no abnormal masses and no hepatosplenomegaly Musculoskeletal: no gait disturbance, no weakness Extremities: Lower extremities with appearance of chronic lymphedema, mild bilateral pretibial erythema without debora cellulitic features knee high compression stockings in place Neuro:awake, conversant, follows commands, no focal motor deficits Psych: appropriate affect and insight. Results & Data Vital Signs (Past 12 Hours) Vital Signs Temp Pulse Pulse Resp BP BP Pulse Ox 05/31/24 12:20 173/98 H 05/31/24 11:37 37.1 C 82 18 190/97 H 93 05/31/24 10:46 72 05/31/24 10:46 05/31/24 07:59 36.7 C 80 18 172/108 H 93 05/31/24 03:04 36.8 C 74 18 140/83 90 O2 Del Method 05/31/24 12:20 05/31/24 11:37 Room Air 05/31/24 10:46 05/31/24 10:46 Room Air 05/31/24 07:59 Room Air 05/31/24 03:04 Room Air Laboratory Results CBC 05/31/24 Range/Units 06:30 WBC 6.52 (4.8-10.8) K/ul RBC 3.65 L (4.20-5.40) M/uL Hgb 11.9 L (12.0-16.0) g/dl Hct 35.4 L (37.0-47.0) % Plt Count 165 (130-400) K/uL Comprehensive Metabolic Panel 05/31/24 Range/Units 06:30 Sodium 139 (136-145) mmol/L Potassium 3.5 (3.5-5.1) mmol/L Chloride 107 (98-107) mmol/L Carbon Dioxide 25 (21-32) mmol/L BUN 7 (6-23) mg/dl Creatinine 0.43 L (0.6-1.2) mg/dl Glucose 87 (70-99(Fasting)) mg/dl Calcium 8.5 L (8.6-10.3) mg/dl Intake and Output 05/30/24 05/31/24 05/31/24 22:59 06:59 14:59 Intake Total 150 / 750 Output Total 1100 / 1850 450 / 1850 Balance -950 / -1100 -450 / -1100 Intake: Oral 150 / 750 Output: Urine Amount (Catheter) 1100 / 1850 450 / 1850 External 1100 / 1850 450 / 1850 Other: Other Intake Source sips Weight 136.531 kg Weight Measurement Method Built in [facility]
[2024-05-31] MEDS: LOSARTAN POTASSIUM 25 MG TAB PO SCH (13:33)
[2024-05-31] MEDS: METOPROLOL SUCC 25MG EXT REL TAB PO SCH (13:59)
[2024-05-31] MEDS: LOPERAMIDE HCL 2 MG CAP PO PRN (16:44)
[2024-06-01 06:36] LABS: Hematocrit (blood only) 35.7 % (37.0-47.0); Hemoglobin 12.2 g/dl (12.0-16.0); Mean Corpuscular Hemoglobin 32.6 pg (25.0-34.0); Mean Corpuscular Hgb Conc 34.2 g/dL (32.0-36.0); Mean Corpuscular Volume 95.5 fL (80.0-100.0); Mean Platelet Volume 9.7 fL (9.4-12.4); Platelet Count 222 K/uL (130-400); RDW Coefficient of Variation 11.7 % (11.5-14.5); RDW Standard Deviation 40.9 fL (36.4-46.3); Red Blood Count 3.74 M/uL (4.20-5.40); White Blood Count 7.01 K/ul (4.8-10.8)
[2024-06-01 06:49] LABS: BUN Creatinine Ratio 11.1 (10-20); Calcium 8.7 mg/dl (8.6-10.3); Creatinine Clr Calc Pharmacy 171.2 ml/min; Potassium 3.4 mmol/L (3.5-5.1)
[2024-06-01] MEDS: POTASSIUM CHLORIDE CRTAB 20 MEQ TABCR PO STA (08:01)
--- NOTE | 2024-06-01 11:01 | Hospitalist Progress Note ---
Date of Service June 01, 2024 Assessment & Plan (1) Generalized weakness: (2) Elevated troponin: (3) Atypical chest pain: Plan This is a 63-year-old F with PMH of labile hypertension, generalized osteoarthritis of multiple sites on scheduled Tramadol, heart murmur, bilateral lower extremity lymphedema/venous stasis ulcers (follows with [facility]) and history of avascular necrosis of the right hip who presented to the ED via EMS on 05/28/2024 for evaluation of generalized weakness and nausea/vomiting x 2 days. Generalized Weakness Possible Sepsis No clear infectious source however HR in the upper 90s-low 100s WBC downtrending from 16 -> 6.52 Work up: resp viral panel negative, CXR with prominent bronchovascular markings bilaterally (likely nonspecific); no evidence of consolidation, UA abnormal with 2+ leuks No abd pain - if develops, consider abdominal imaging Antibiotics discontinued as no true bacterial infection BC NGTD, stool and urine cx negative; C. difficile toxin negative; discontinue Flagyl Cdiff negative MRSA swab negative PT/OT consulted Elevated Troponin EKG Changes, Atypical Chest Pain: HS troponin 98.8 -> 63.6 -> 45.8 Initial EKG with sinus tachycardia with PACs plus aberrant conduction, no acute ST changes 2D echo - hyperdynamic left ventricular systolic function on echo, no wall motion abnormalities Cardiology consulted - presentation suggestive of demand ischemia and hypovolemia. given hypokalemia lymphedema; spironolactone started on 05/30 A1c and lipid panel WNL 2 day nuclear stress test (first part on Thursday 06/01) HTN: Pt with SBP 170-190 Was started on Spironolactone 05/30 by Cardiology and Losartan added on 05/31 Bp remains high, pain likely contributing as well Hypokalemia: Serum K 3.4, will replace orally No arrhythmia on telemetry Trend BMP Other Chronic Medical Conditions: * Generalized Osteoarthritis - Takes Tramadol 50mg TID, continue. Can also continue celecoxib and duloxetine * BLE Lymphedema/Venous Stasis Ulcers - Follows with [facility]. No evidence of cellulitis/open wounds. AmLactin ordered. Continue compression stockings. DVT Prophylaxis: SQ Lovenox Code Status: FULL CODE PCP: NITA Galvin Disposition: Admitted to Med/Telemetry - patient feels too weak to return home; interested in [facility]. She is undergoing 2 day stress test on 06/01 and 06/02, likely stable for d/c on 06/02 pending stress test. CM placed referral; await placement for SNF Patient seen in collaboration with Dr. Munson. Please see addendum. I spent a total of 45 minutes coordinating, documenting, and providing care for this patient excluding time spent in the performance of separately billed services. This included personally reviewing all current laboratories and imaging studies, medical reconciliation, outpatient chart review and discussion with specialists. Admission and Anticipated Discharge Date Admission Date: May 28, 2024 Supervising Physician Co-Signing Physician Notes Attending addendum: The patient was seen and examined in the medical telemetry unit She is a status post first part of dobutamine stress echo She is stable but feels tired following the procedure Her diarrhea is better On examination Lying in bed without any acute distress Hemodynamically stable with blood pressure on the upper side at 185/105 Chestdecreased breath sounds at the dependent part HeartS1-S2, regular Abdomenbenign nontender Extremitieshas lymphedema in bilateral 1+ leg edema Her labs and medications reviewed Remains medically stable and awaiting pharmacological stress test Agree with assessment plan as outlined above by Erica Merino PA-C and take the full responsibility of care in the hospital Dr Roxy Munson Subjective Pt seen and examined in room 275-2 with nurse Garzon at beside. Pt reports increased R hip pain that is radiating to her back. She reports worsening of her pain after being moved up in the bed by staff. She is scheduled to go to a nuclear stress test this morning. She denies n/t to lower extremity, chest pain, sob, n/v/d. She is NPO for cardiac testing. Review of Systems Review of Systems: All systems reviewed & are unremarkable except as noted in HPI & below Physical Exam Physical Exam: Gen: WD/WN, obese, F,NAD, A&O x3 HEENT: Normocephalic, atraumatic, conjunctivae moist, sclerae anicteric, mucous membranes moist. Lung: Clear to Auscultation bilaterally, no wheezes/rales/rhonchi Heart: Regular rate, regular rhythm, 2/6 JESSICA noted LUSB, rubs, or gallops Abdomen: Soft, NT, ND +BS x 4 Extremities: obese lower ext with b/l lymphedema Skin: Warm, no rash, negative turgor. Results & Data Results & Data Vital Signs (Past 12 Hours) Vital Signs Temp Pulse Pulse Resp BP BP Pulse Ox 06/01/24 08:00 06/01/24 07:49 36.9 C 81 18 185/105 H 95 06/01/24 07:19 73 06/01/24 03:08 37.0 C 85 18 180/100 H 94 05/31/24 23:39 77 05/31/24 23:02 37.2 C 85 18 172/93 H 94 O2 Del Method 06/01/24 08:00 Room Air 06/01/24 07:49 Room Air 06/01/24 07:19 06/01/24 03:08 Room Air 05/31/24 23:39 05/31/24 23:02 Room Air Laboratory Results Short CBC 06/01/24 Range/Units 05:51 WBC 7.01 (4.8-10.8) K/ul Hgb 12.2 (12.0-16.0) g/dl Hct 35.7 L (37.0-47.0) % Plt Count 222 (130-400) K/uL BMP 06/01/24 05:51 Sodium 139 Potassium 3.4 L Chloride 104 Carbon Dioxide 29 BUN 5 L Creatinine 0.45 L Glucose 108 H Calcium 8.7 I have independently reviewed and interpreted patient's admitting labs including CBC, BMP. Medications Administered Current Inpatient Medications Acetaminophen (Acetaminophen 325 Mg Tab) 650 mg PO Q4H PRN PRN Reason: Pain or Fever Stop: 06/27/24 11:03 Last Admin: 06/01/24 05:25 Dose: 650 mg Celecoxib (Celebrex 200 Mg Cap) 200 mg PO HS MALINI Stop: 06/27/24 20:59 Last Admin: 05/31/24 21:07 Dose: 200 mg Duloxetine HCl (Duloxetine Hcl 60 Mg Cap) 60 mg PO QAM MALINI Stop: 06/28/24 08:59 Last Admin: 06/01/24 08:04 Dose: 60 mg Enoxaparin Sodium (Enoxaparin Inj 40 Mg/0.4 Ml Syr) 40 mg SQ Q12 MALINI Stop: 06/27/24 11:29 Last Admin: 06/01/24 08:05 Dose: 40 mg Lactic Acid (Ammonium Lactate 12% Lotion 225 Gm Btl) 1 gm EXT HS [facility] Stop: 06/27/24 20:59 Last Admin: 05/31/24 20:58 Dose: Not Given Lactobacillus Acidophilus (Advanced Probiotic 625 Mg Capsule) 1,250 mg PO DAILY [facility] Stop: 06/27/24 11:29 Last Admin: 06/01/24 08:03 Dose: 1,250 mg Loperamide HCl (Loperamide Hcl 2 Mg Cap) 2 mg PO TID PRN PRN Reason: Diarrhea Stop: 06/30/24 15:39 Last Admin: 05/31/24 16:44 Dose: 2 mg Losartan Potassium (Losartan Potassium 25 Mg Tab) 25 mg PO QAM [facility] Stop: 06/30/24 12:59 Last Admin: 06/01/24 08:02 Dose: 25 mg Magnesium Hydroxide (Magnesium Hydroxide Susp 30 Ml Udc) 30 ml PO Q12H PRN PRN Reason: Constipation Stop: 06/27/24 11:03 Miconazole Nitrate (Miconazole Nitrate Powder 85 Gm) 1 appln EXT TID [facility] Stop: 06/28/24 13:59 Last Admin: 05/31/24 21:08 Dose: 1 appln Multivitamins (Multivitamin Tab) 1 tab [facility] Stop: 06/28/24 08:59 Last Admin: 06/01/24 08:04 Dose: 1 tab Ofloxacin (Ofloxacin 0.3% 75 Drops/5 Ml Btl) 2 drops OP BID [facility] Stop: 06/10/24 10:14 Last Admin: 06/01/24 08:04 Dose: 2 drops Ondansetron HCl (Ondansetron Inj 2 Mg/Ml 2 Ml Vial) 4 mg IV Q6H PRN PRN Reason: Nausea Stop: 06/27/24 11:03 Polyethylene Glycol (Polyethylene (Miralax) 17 Gm Pack) 17 gm PO DAILY PRN PRN Reason: Constipation Stop: 06/27/24 11:03 Spironolactone (Spironolactone 25 Mg Tab) 25 mg PO QAM [facility] Stop: 06/29/24 12:29 Last Admin: 06/01/24 08:03 Dose: 25 mg Tramadol HCl (Tramadol Hcl 50 Mg Tablet) 50 mg PO TID [facility] Stop: 06/27/24 13:59 Last Admin: 06/01/24 08:02 Dose: 50 mg
[2024-06-01] MEDS: REGADENOSON 0.4 MG/5 ML SYR IV ONE (13:17)
--- NOTE | 2024-06-01 14:57 | Electrocardiogram Report ---
Test Reason : Blood Pressure : */* mmHG Vent. Rate : 69 BPM Atrial Rate : 69 BPM P-R Int : 226 ms QRS Dur : 108 ms QT Int : 408 ms P-R-T Axes : 38 -52 12 degrees QTcB Int : 437 ms Poor data quality, interpretation may be adversely affected Sinus rhythm with 1st degree A-V block Left anterior fascicular block Possible Lateral infarct (cited on or before 27-Apr-2022) Abnormal ECG When compared with ECG of 29-May-2024 05:08, No significant change Confirmed by Parish Pham ([id number]) on 06/01/2024 2:56:49 PM Referred By: REFERRED SELF Confirmed By: Parish Pham
[2024-06-01] MEDS: LIDOCAINE 5% 1 PATCH TD SCH (15:08)
[2024-06-02 07:15] LABS: Calcium 8.9 mg/dl (8.6-10.3); Creatinine Clr Calc Pharmacy 154.7 ml/min; Potassium 3.5 mmol/L (3.5-5.1)
--- NOTE | 2024-06-02 10:24 | Myocardial Perfusion Study ---
Date of Service June 02, 2024 Myocardial Perfusion Study [facility] Myocardial Perfusion Study Report Indication: Chest discomfort, mildly elevated troponin. Stress test report: Patient performed stress test according to Lexiscan protocol for 3 minutes and 2 seconds, achieving work level of 1.0 METS. The resting heart rate of 85 bpm marilu to a maximal heart rate of 100 bpm. This value represents 64% of the maximal, age-predicted heart rate. Resting blood pressure 158/72 marilu to a maximum blood pressure of 158/72. Stress was stopped due to completion of protocol. Normal heart rate and blood pressure response to Lexiscan infusion. Symptoms: Lightheadedness Resting ECG: Sinus rhythm with occasional premature ventricular complexes Stress ECG: No ischemia Nuclear imaging: For the stress portion of the study 20.2 mCi of technetium 99m Cardiolite was injected at 09:10 AM on 06/01/2024. 30 minutes following the injection, imaging of the heart was performed in multiple projections For the rest portion of the study, 21.75 mCi of technetium 99m Cardiolite was injected at 07:37 AM. 1 hour following the injection, imaging of the heart was performed in the same projections. Raw data: Significant liver and small bowel uptake of isotope tracer adjacent to the inferior wall. Significant breast shadowing overlying the anterolateral wall, and apex visualized. Right ventricle: Not well-visualized. Resting images: There is a small defect of moderate intensity involving left ve ntricular apex. The lateral wall is mildly hypoperfused. Otherwise, normal perfusion. Stress imaging: There is a small defect of mild intensity involving the left ventricular apex. The lateral wall appears mildly hypoperfused. Otherwise, normal perfusion. Apical and lateral perfusion defect appears similar/unchanged to resting images. There are no reversible defects to suggest ischemia. I suspect the fixed apical and lateral defect is secondary to soft tissue attenuation artifact. Gated SPECT imaging: Heterogeneous uptake of isotope tracer. No regional wall motion abnormalities. Left Ventricular Ejection Fraction Is 52%. Conclusion: 1. Lexiscan nuclear stress test is negative for inducible ischemia. 2. Soft tissue attenuation artifact is present. 3. Calculated ventricular ejection fraction 52% Puma Allen DO, [facility]
[2024-06-02] MEDS: traMADol HCL 50 MG TABLET PO PRN (13:31)
--- NOTE | 2024-06-02 13:51 | Hospitalist Progress Note ---
Date of Service June 02, 2024 Assessment & Plan (1) Generalized weakness: (2) Elevated troponin: (3) Atypical chest pain: Plan This is a 63-year-old F with PMH of labile hypertension, generalized osteoarthritis of multiple sites on scheduled Tramadol, heart murmur, bilateral lower extremity lymphedema/venous stasis ulcers (follows with [facility]) and history of avascular necrosis of the right hip who presented to the ED via EMS on 05/28/2024 for evaluation of generalized weakness and nausea/vomiting x 2 days. Generalized Weakness Possible Sepsis No clear infectious source however HR in the upper 90s-low 100s WBC downtrending from 16 -> 6.52 Work up: resp viral panel negative, CXR with prominent bronchovascular markings bilaterally (likely nonspecific); no evidence of consolidation, UA abnormal with 2+ leuks No abd pain - if develops, consider abdominal imaging Antibiotics discontinued as no true bacterial infection BC NGTD, stool and urine cx negative; C. difficile toxin negative; discontinue Flagyl Cdiff negative MRSA swab negative PT/OT consulted - recommending rehab Elevated Troponin EKG Changes, Atypical Chest Pain: HS troponin 98.8 -> 63.6 -> 45.8 Initial EKG with sinus tachycardia with PACs plus aberrant conduction, no acute ST changes 2D echo - hyperdynamic left ventricular systolic function on echo, no wall motion abnormalities Cardiology consulted - presentation suggestive of demand ischemia and hypovolemia. given hypokalemia lymphedema; spironolactone started on 05/30 A1c and lipid panel WNL 2 day nuclear stress test which was negative for inducible ischemia HTN: Pt bp slightly improving Was started on Spironolactone 05/30 by Cardiology and Losartan added on 05/31 Bp remains high but some improvement, continue current meds and monitor Hypokalemia: Serum K 3.4, will replace orally No arrhythmia on telemetry Trend BMP Other Chronic Medical Conditions: * Generalized Osteoarthritis - Takes Tramadol 50mg TID. Can also continue celecoxib and duloxetine - due to increased pain will increase freq of tramadol prn to assist in better mobility, could consider short prednisone burst but may make blood pressure worse * BLE Lymphedema/Venous Stasis Ulcers - Follows with [facility]. No evidence of cellulitis/open wounds. AmLactin ordered. Continue compression stockings. DVT Prophylaxis: SQ Lovenox Code Status: FULL CODE PCP: NITA Galvin Disposition: Admitted to Med/Telemetry -can downgrade to medical, currently needing improved pain control to participate in therapy and d/c to [facility] Patient seen in collaboration with Dr. Munson. Please see addendum. I spent a total of 49 minutes coordinating, documenting, and providing care for this patient excluding time spent in the performance of separately billed services. This included personally reviewing all current laboratories and imaging studies, medical reconciliation, outpatient chart review and discussion with specialists. Admission and Anticipated Discharge Date Admission Date: May 28, 2024 Supervising Physician Co-Signing Physician Notes Attending addendum: The patient was seen and examined in medical telemetry unit She complains of weakness and has had second part of pharmacological stress test today No more diarrhea She is awaiting placement ON examination Lying in bed without any acute distress and is morbidly obese Remains hemodynamically stable with blood pressure on the upper side at 155/112 Has bilateral lymphedema and other system examination unremarkable Her labs and medications reviewed Generalized weakness without any significant infection and she will need to have more PT and OT Chest pain and awaiting the results of pharmacologic stress test Agree with assessment plan as outlined above by Cici Merino PA-C and take the full disposal of care in the hospital DR Roxy munson Subjective Pt seen and examined in room 275-2. She reports continued pain which is limiting her mobility. She has chronic OA and R hip pain 2/2 avascular necrosis. SHe previously was on tramadol 50mg q8hr but reports its not enough and she is in significant amount of pain. She denies any new symptoms or pain and reports this is all chronic sx, but just worse. She completed her stress test today. She denies f/c/s chest pain, sob, n/v/d. She hasn't moved her bowels in 2 days. Review of Systems Review of Systems: All systems reviewed & are unremarkable except as noted in HPI & below Physical Exam Physical Exam: Gen: WD/WN, obese, F,NAD, A&O x3, does appear in mild discomfort HEENT: Normocephalic, atraumatic, conjunctivae moist, sclerae anicteric, mucous membranes moist. Lung: Clear to Auscultation bilaterally, no wheezes/rales/rhonchi Heart: Regular rate, regular rhythm Abdomen: Soft, NT, ND +BS x 4 Extremities: obese lower ext with b/l lymphedema Skin: Warm, no rash, negative turgor. Results & Data Results & Data Vital Signs (Past 12 Hours) Vital Signs Temp Pulse Pulse Resp BP Pulse Ox O2 Del Method 06/02/24 11:45 37 C 84 18 155/112 H 92 Room Air 06/02/24 08:06 36.6 C 78 16 160/83 H 93 Room Air 06/02/24 07:54 Room Air 06/02/24 07:13 74 06/02/24 03:25 36.4 C L 76 20 148/78 H 93 Room Air Laboratory Results BMP 06/02/24 06:29 Sodium 139 Potassium 3.5 Chloride 103 Carbon Dioxide 30 BUN 7 Creatinine 0.50 L Glucose 103 H Calcium 8.9 I have independently reviewed and interpreted patient's bmp. Medications Administered Current Inpatient Medications Acetaminophen (Acetaminophen 325 Mg Tab) 650 mg PO Q4H PRN PRN Reason: Pain or Fever Stop: 06/27/24 11:03 Last Admin: 06/02/24 04:08 Dose: 650 mg Celecoxib (Celebrex 200 Mg Cap) 200 mg PO HS MALINI Stop: 06/27/24 20:59 Last Admin: 06/01/24 21:04 Dose: 200 mg Docusate Sodium (Docusate Sodium 100 Mg Cap) 100 mg PO BID MALINI Stop: 07/02/24 20:59 Duloxetine HCl (Duloxetine Hcl 60 Mg Cap) 60 mg PO QAM MALINI Stop: 06/28/24 08:59 Last Admin: 06/02/24 09:14 Dose: 60 mg Enoxaparin Sodium (Enoxaparin Inj 40 Mg/0.4 Ml Syr) 40 mg SQ Q12 MALINI Stop: 06/27/24 11:29 Last Admin: 06/02/24 09:13 Dose: 40 mg Lactic Acid (Ammonium Lactate 12% Lotion 225 Gm Btl) 1 gm EXT HS MALINI Stop: 06/27/24 20:59 Last Admin: 06/01/24 21:04 Dose: Not Given Lactobacillus Acidophilus (Advanced Probiotic 625 Mg Capsule) 1,250 mg PO DAILY MALINI Stop: 06/27/24 11:29 Last Admin: 06/02/24 09:14 Dose: 1,250 mg Lidocaine (Lidocaine 5% 1 Patch) 1 patch TD QAM MALINI Stop: 07/01/24 10:59 Last Admin: 06/02/24 09:15 Dose: Not Given Loperamide HCl (Loperamide Hcl 2 Mg Cap) 2 mg PO TID PRN PRN Reason: Diarrhea Stop: 06/30/24 15:39 Last Admin: 05/31/24 16:44 Dose: 2 mg Losartan Potassium (Losartan Potassium 25 Mg Tab) [facility] [place] Stop: 06/30/24 12:59 Last Admin: 06/02/24 09:14 Dose: 25 mg Magnesium Hydroxide (Magnesium Hydroxide Susp 30 Ml Udc) 30 ml PO Q12H PRN PRN Reason: Constipation Stop: 06/27/24 11:03 Miconazole Nitrate (Miconazole Nitrate Powder 85 Gm) 1 appln EXT TID [facility] Stop: 06/28/24 13:59 Last Admin: 06/02/24 13:32 Dose: 1 appln Miscellaneous (Remove Lidoderm Patch) 1 each N/A DAILY@2100 [facility] Stop: 07/01/24 20:59 Last Admin: 06/01/24 21:06 Dose: 1 each Multivitamins (Multivitamin Tab) 1 tab [facility] [place] Stop: 06/28/24 08:59 Last Admin: 06/02/24 09:14 Dose: 1 tab Ofloxacin (Ofloxacin 0.3% 75 Drops/5 Ml Btl) 2 drops OP BID [facility] Stop: 06/10/24 10:14 Last Admin: 06/02/24 09:14 Dose: 2 drops Ondansetron HCl (Ondansetron Inj 2 Mg/Ml 2 Ml Vial) 4 mg IV Q6H PRN PRN Reason: Nausea Stop: 06/27/24 11:03 Polyethylene Glycol (Polyethylene (Miralax) 17 Gm Pack) 17 gm PO DAILY PRN PRN Reason: Constipation Stop: 06/27/24 11:03 Spironolactone (Spironolactone 25 Mg Tab) 25 [facility] [place] Stop: 06/29/24 12:29 Last Admin: 06/02/24 09:15 Dose: 25 mg Tramadol HCl (Tramadol Hcl 50 Mg Tablet) 50 mg PO Q4H PRN PRN Reason: moderate to severe pain, 4-10 Stop: 07/02/24 11:14 Last Admin: 06/02/24 13:31 Dose: 50 mg
--- NOTE | 2024-06-02 14:18 | Cardiology Progress Note ---
Date of Service June 02, 2024 Assessment & Plan (1) HTN (hypertension): (2) Atypical chest pain: (3) Demand ischemia: (4) Lymphedema: Plan: Lexiscan nuclear stress test negative for inducible ischemia suggesting noncardiac discomfort. Blood pressure remains elevated. Titrate losartan to 50 mg daily. Continue spironolactone as ordered. No further inpatient cardiac testing or intervention recommended at this time. Cardiology will sign off. Please call with additional concerns/questions. Admission and Anticipated Discharge Date Admission Date: May 28, 2024 Subjective 63-year-old female seen examined the bedside. Blood pressure remains elevated. Denies chest pain or shortness of breath. Awaiting placement for rehab. Review of Systems Review of Systems: All systems reviewed & are unremarkable except as noted in Subjective Physical Exam Constitutional: + morbidly obese Respiratory: no respiratory distress Auscultation: no crackles, no rales, no rhonchi and no wheezes Cardiovascular: Rate/Rhythm: regular rate and regular rhythm Heart Sounds: normal S1 and normal S2; no murmur Extremities: + edema Neurologic: CN's II-XI intact bilaterally and moves all extremities Results & Data Vital Signs (Past 12 Hours) Vital Signs Temp Pulse Pulse Resp BP Pulse Ox O2 Del Method 06/02/24 11:45 37 C 84 18 155/112 H 92 Room Air 06/02/24 08:06 36.6 C 78 16 160/83 H 93 Room Air 06/02/24 07:54 Room Air 06/02/24 07:13 74 06/02/24 03:25 36.4 C L 76 20 148/78 H 93 Room Air Laboratory Results Comprehensive Metabolic Panel 06/02/24 Range/Units 06:29 Sodium 139 (136-145) mmol/L Potassium 3.5 (3.5-5.1) mmol/L Chloride 103 (98-107) mmol/L Carbon Dioxide 30 (21-32) mmol/L BUN 7 (6-23) mg/dl Creatinine 0.50 L (0.6-1.2) mg/dl Glucose 103 H (70-99(Fasting)) mg/dl Calcium 8.9 (8.6-10.3) mg/dl Intake and Output 06/01/24 06/02/24 06/02/24 22:59 06:59 14:59 Intake Total 100 / 100 Output Total 1400 / 1500 100 / 1500 Balance -1300 / -1400 -100 / -1400 Intake: Oral 100 / 100 Output: Urine 700 / 700 Urine Amount (Catheter) 700 / 800 100 / 800 External 700 / 800 100 / 800 Other: Weight 136.3 kg Weight Measurement Method Built in [facility]
[2024-06-02] MEDS: MAGNESIUM HYDROXIDE SUSP 30 ML UDC PO PRN (15:20)
[2024-06-02] MEDS: DOCUSATE SODIUM 100 MG CAP PO SCH (21:42)
[2024-06-03 06:49] LABS: Hematocrit (blood only) 35.8 % (37.0-47.0); Hemoglobin 11.7 g/dl (12.0-16.0); Mean Corpuscular Hemoglobin 31.5 pg (25.0-34.0); Mean Corpuscular Hgb Conc 32.7 g/dL (32.0-36.0); Mean Corpuscular Volume 96.5 fL (80.0-100.0); Mean Platelet Volume 9.2 fL (9.4-12.4); Platelet Count 302 K/uL (130-400); RDW Coefficient of Variation 11.9 % (11.5-14.5); RDW Standard Deviation 42.2 fL (36.4-46.3); Red Blood Count 3.71 M/uL (4.20-5.40); White Blood Count 7.83 K/ul (4.8-10.8)
[2024-06-03 07:17] LABS: BUN Creatinine Ratio 15.1 (10-20); Calcium 8.8 mg/dl (8.6-10.3); Creatinine Clr Calc Pharmacy 145.9 ml/min; Potassium 3.6 mmol/L (3.5-5.1)
[2024-06-03] MEDS: POTASSIUM CHLORIDE CRTAB 20 MEQ TABCR PO STA (09:15)
--- NOTE | 2024-06-03 10:11 | Hospitalist Progress Note ---
<Statement entered by Calin Rubalcava, - 06/03/24 16:48> I have seen and examined the patient and have discussed the case with the provider above. I have reviewed the advanced practitioner's documentation, and I agree with, and take responsibility for that plan of care. No acute issues. Patient is hopeful she can get to rehab soon. Date of Service June 03, 2024 Assessment & Plan (1) Generalized weakness: (2) Elevated troponin: (3) Atypical chest pain: Plan Cleo Vasquez is a 63-year-old female with past medical history significant for labile hypertension, generalized osteoarthritis of multiple sites on scheduled Tramadol, heart murmur, bilateral lower extremity lymphedema/venous stasis ulcers [follows with [facility]] and history of avascular necrosis of the right hip who presented to the ED via EMS on 05/28/2024 for evaluation of generalized weakness and nausea/vomiting x 2 days. Generalized Weakness Possible Sepsis (On Admission): No clear infectious source on admission however patient's HR was in the upper 90s-low 100s, WBC 16k. CXR on presentation revealed prominent bronchovascular markings bilaterally (likely nonspecific), no evidence of overt consolidation. Respiratory BioFire panel was negative. Procalcitonin on admission was significant elevated at 65.5 therefore she was prophylactically started on IV Rocephin plus PO Zithromax in the ED. She was transitioned to IV cefepime/Flagyl on admission. Urinalysis was abnormal with 2+ leukocyte esterase, WBC>50; however there was no evidence of urine bacteria. Urine culture and blood cultures were also unremarkable. C. difficile toxin was checked on 05/31/2024 due to episodes of diarrhea which was ultimately negative. MRSA nasal swab negative. Antibiotics were discontinued on 06/01/2024 as there was no true evidence of bacterial infection after thorough infectious workup. Patient was evaluated by PT/OT whom recommended rehabilitation placement. Patient is currently stable and awaiting placement. Elevated Troponin EKG Changes, Atypical Chest Pain: Patient had a 5 to 6-hour long episode the day prior to admission where she was experiencing centralized chest pressure in addition to mild shortness of breath as well as nausea/vomiting. Patient with no significant prior cardiac history except for labile hypertension. Both of her parents however have significant history of heart disease; both parents have undergone cardiac operations including bypass and catheterization. Patient's initial troponin was 46 on presentation and then repeat troponin was 49.4; repeat troponins continued to rise from 96.6 --> 98.8 before downtrending to 63.6 --> 45.8 (as of 05/29/2024). Initial EKG upon presentation revealed sinus tachycardia with PACs plus aberrant conduction, no acute ST changes. Repeat EKG performed in the ED revealed sinus rhythm with first-degree AV block, left anterior fascicular block (unchanged from prior), no acute ST changes. Resting echocardiogram this admission revealed mild concentric LVH, hyperdynamic LV, LVEF = >70%, mildly dilated LA, mild AV sclerosis and grade 1 diastolic dysfunction. Presentation was suggestive of demand ischemia ISO hypovolemia however cardiology was consulted given significant cardiac history in the patient's first-degree relatives. Patient underwent 2-day Lexiscan nuclear stress testing while admitted per cardiology's recommendation which was negative for inducible ischemia, calculated ventricular EF = 52%. This suggests noncardiac discomfort. No further inpatient cardiac testing or intervention recommended at this time. Cardiology signed off on the patient on 06/02/2024. Hgb A1c and lipid panel both WNL this admission. Hypertension: Patient with prior history of labile hypertension however she was not on any antihypertensives as an outpatient. Patient has been persistently hypertensive since being admitted. Cardiology has been assisting with adjusting her antihypertensive regimen. She was started on spironolactone 25mg daily on 05/30/2024. She was started on losartan 25mg daily on 05/31/2023. Losartan dosage was increased to 50mg daily on 06/02/2024 due to inadequate BP control. BP remains elevated but is improving, continue to monitor and adjust medications PRN. Hypokalemia: K+ 3.4 on 06/01/2024 - was repleted orally. K+ WNL today. No arrhythmia on telemetry. Spironolactone (potassium-sparing diuretic) was added on as mentioned above. Other Chronic Medical Conditions: * BLE Lymphedema/Venous Stasis Ulcers - Follows with [facility]. No evidence of cellulitis; WOCN saw patient. AmLactin ordered. Continue compression stockings. * Generalized Osteoarthritis - Was previously taking Tramadol 50mg TID however she was having increased pain yesterday, therefore the dosing frequency of this medication was increased to Q4H PRN to assist with better mobility. Could consider short prednisone burst however this could worsen her BP. Continue celecoxib and duloxetine. DVT Prophylaxis: SQ Lovenox Code Status: FULL CODE PCP: NITA Galvin Disposition: Patient was transitioned from Med/Telemetry to Med/Surg yesterday. Referral to [facility] done 06/01/2024; no beds currently available at [facility] today. Patient seen in collaboration with Dr. Rubalcava. Please see addendum. I spent a total of 45 minutes coordinating, documenting, and providing care for this patient excluding time spent in the performance of separately billed services. This included personally reviewing all current laboratories and imaging studies, medical reconciliation, outpatient chart review and discussion with specialists. This chart was completed in part utilizing Speech Voice Recognition Software. Gr ammatical errors, random word insertions, pronoun errors, and incomplete sentences are an occasional consequence of this system due to software limitations, ambient noise, and hardware issues. Any formal questions or concerns about the content, text, or information contained within the body of this dictation should be directly addressed to the provider for clarification. Admission and Anticipated Discharge Date Admission Date: May 28, 2024 Subjective Patient seen and examined at bedside this morning. No acute events overnight. She reports chronic generalized osteoarthritis pain which limits her mobility at baseline. She completed her stress testing yesterday. She currently denies any chest pain/pressure, shortness of breath or nausea/vomiting. She is currently awaiting placement. Review of Systems Review of Systems: At least ten systems reviewed and negative, except as noted in the subjective section. Physical Exam Physical Exam: General: Obese F, NAD, sitting up in bed, pleasant, conversing appropriately. A+Ox3, euthymic affect. HEENT: Normocephalic, atraumatic. Conjunctivae normal. External ear and nose normal, oropharynx normal. Respiratory: Normal respiratory effort, lung sounds decreased throughout 2/2 habitus. No accessory muscle use. Cardiovascular: Regular rate, rhythm, normal peripheral pulses, BLE lymphedema at baseline. Vessels: No JVD. Abdomen/GI: Normal bowel sounds, soft, nondistended, nontender to palpation in all quadrants. Extremities/Musculoskeletal: No cyanosis or clubbing, able to actively move all extremities. Neurologic: No overt focal deficits, CN's II-XI not formally tested but appear grossly intact bilaterally. Skin: No rashes, normal color, warm/dry. She is wearing compression stockings on her BLE. Results & Data Results & Data Vital Signs (Past 12 Hours) Vital Signs Temp Pulse Resp BP Pulse Ox O2 Del Method 06/03/24 07:31 36.9 C 78 16 162/81 H 95 Room Air Laboratory Results Short CBC 06/03/24 Range/Units 05:49 WBC 7.83 (4.8-10.8) K/ul Hgb 11.7 L (12.0-16.0) g/dl Hct 35.8 L (37.0-47.0) % Plt Count 302 (130-400) K/uL BMP 06/03/24 05:49 Sodium 139 Potassium 3.6 Chloride 102 Carbon Dioxide 32 BUN 8 Creatinine 0.53 L Glucose 94 Calcium 8.8
[2024-06-03] MEDS: LOSARTAN POTASSIUM 50 MG TAB PO SCH (11:43)
--- NOTE | 2024-06-04 07:44 | Hospitalist Progress Note ---
<Statement entered by Calin Rubalcava, - 06/04/24 13:15> I have seen and examined the patient and have discussed the case with the provider above. I have reviewed the advanced practitioner's documentation, and I agree with, and take responsibility for that plan of care. No acute issues overnight. No bed available at [facility] Continue with current care and as outlined below Date of Service June 04, 2024 Assessment & Plan (1) Generalized weakness: (2) Elevated troponin: (3) Atypical chest pain: (4) HTN (hypertension): (5) Hypokalemia: Plan Cleo Vasquez is a 63-year-old female with past medical history significant for labile hypertension, generalized osteoarthritis of multiple sites on scheduled Tramadol, heart murmur, bilateral lower extremity lymphedema/venous stasis ulcers [follows with [facility]] and history of avascular necrosis of the right hip who presented to the ED via EMS on 05/28/2024 for evaluation of generalized weakness and nausea/vomiting x 2 days. Generalized Weakness Possible Sepsis (On Admission): No clear infectious source on admission however patient's HR was in the upper 90s-low 100s, WBC 16k. CXR on presentation revealed prominent bronchovascular markings bilaterally (likely nonspecific), no evidence of overt consolidation. Respiratory BioFire panel was negative. Procalcitonin on admission was significant elevated at 65.5 therefore she was prophylactically started on IV Rocephin plus PO Zithromax in the ED. She was transitioned to IV cefepime/Flagyl on admission. Urinalysis was abnormal with 2+ leukocyte esterase, WBC>50; however there was no evidence of urine bacteria. Urine culture and blood cultures were also unremarkable. C. difficile toxin was checked on 05/31/2024 due to episodes of diarrhea which was ultimately negative. MRSA nasal swab negative. Antibiotics were discontinued on 06/01/2024 as there was no true evidence of bacterial infection after thorough infectious workup. Patient was evaluated by PT/OT whom recommended rehabilitation placement. Patient is currently stable and awaiting placement. Elevated Troponin EKG Changes, Atypical Chest Pain: Patient had a 5 to 6-hour long episode the day prior to admission where she was experiencing centralized chest pressure in addition to mild shortness of breath as well as nausea/vomiting. Patient with no significant prior cardiac history except for labile hypertension. Both of her parents however have significant history of heart disease; both parents have undergone cardiac operations including bypass and catheterization. Patient's initial troponin was 46 on presentation and then repeat troponin was 49.4; repeat troponins continued to rise from 96.6 --> 98.8 before downtrending to 63.6 --> 45.8 (as of 05/29/2024). Initial EKG upon presentation revealed sinus tachycardia with PACs plus aberrant conduction, no acute ST changes. Repeat EKG performed in the ED revealed sinus rhythm with first-degree AV block, left anterior fascicular block (unchanged from prior), no acute ST changes. Resting echocardiogram this admission revealed mild concentric LVH, hyperdynamic LV, LVEF = >70%, mildly dilated LA, mild AV sclerosis and grade 1 diastolic dysfunction. Presentation was suggestive of demand ischemia ISO hypovolemia however cardiology was consulted given significant cardiac history in the patient's first-degree relatives. Patient underwent 2-day Lexiscan nuclear stress testing while admitted per cardiology's recommendation which was negative for inducible ischemia, calculated ventricular EF = 52%. This suggests noncardiac discomfort. No further inpatient cardiac testing or intervention recommended at this time. Cardiology signed off on the patient on 06/02/2024. Hgb A1c and lipid panel both WNL this admission. Hypertension: Patient with prior history of labile hypertension however she was not on any antihypertensives as an outpatient. Patient has been persistently hypertensive since being admitted. Cardiology has been assisting with adjusting her antihypertensive regimen. She was started on spironolactone 25mg daily on 05/30/2024. She was started on losartan 25mg daily on 05/31/2023. Losartan dosage was increased to 50mg daily on 06/02/2024 due to inadequate BP control. BP remains elevated but is improving, continue to monitor and adjust medications PRN. Hypokalemia: K+ 3.4 on 06/01/2024 - was repleted orally. K+ remains WNL today. No arrhythmia on telemetry. Spironolactone was added on as mentioned above. Other Chronic Medical Conditions: * BLE Lymphedema/Venous Stasis Ulcers - Follows with [facility]. No evidence of cellulitis; WOCN saw patient. AmLactin ordered. Continue compression stockings. * Generalized Osteoarthritis - Was previously taking Tramadol 50mg TID however she was having increased pain on 06/02/2024, therefore the dosing frequency of this medication was increased to Q4H PRN to assist with better mobility. Could consider short prednisone burst however this could worsen her BP and her pain seems to be controlled for the time being. Continue celecoxib and duloxetine. DVT Prophylaxis: SQ Lovenox Code Status: FULL CODE PCP: NITA Galvin Disposition: Referral to [facility] done 06/01/2024; Patient is medically stable for discharge however no beds are currently available at [facility] (? possibly tomorrow). Patient seen in collaboration with Dr. Rubalcava. Please see addendum. I spent a total of 30 minutes coordinating, documenting, and providing care for this patient excluding time spent in the performance of separately billed services. This included personally reviewing all current laboratories and imaging studies, medical reconciliation, outpatient chart review and discussion with specialists. This chart was completed in part utilizing Speech Voice Recognition Software. Grammatical errors, random word insertions, pronoun errors, and incomplete sentences are an occasional consequence of this system due to software limitations, ambient noise, and hardware issues. Any formal questions or concerns about the content, text, or information contained within the body of this dictation should be directly addressed to the provider for clarification. Admission and Anticipated Discharge Date Admission Date: May 28, 2024 Subjective Patient seen and examined at bedside this morning. Reporting some constipation and bloating. Had small bowel movement yesterday morning. Otherwise has no other complaints. She is currently awaiting placement. Review of Systems Review of Systems: At least ten systems reviewed and negative, except as noted in the subjective section. Physical Exam Physical Exam: General: Obese F, NAD, laying down in bed, pleasant, conversing appropriately. A+Ox3, euthymic affect. HEENT: Normocephalic, atraumatic. Conjunctivae normal. External ear and nose normal, oropharynx normal. Respiratory: Normal respiratory effort, lung sounds decreased throughout 2/2 habitus. No accessory muscle use. Cardiovascular: Regular rate, rhythm, normal peripheral pulses, BLE lymphedema at baseline. Vessels: No JVD. Abdomen/GI: Normal bowel sounds, soft, nondistended, nontender to palpation in all quadrants. Extremities/Musculoskeletal: No cyanosis or clubbing, able to actively move all extremities. Neurologic: No overt focal deficits, CN's II-XI not formally tested but appear grossly intact bilaterally. Skin: No rashes, normal color, warm/dry. She is wearing compression stockings on her BLE. Results & Data Results & Data Vital Signs (Past 12 Hours) Vital Signs Temp Pulse Resp BP Pulse Ox O2 Del Method 06/04/24 07:26 36.9 C 84 16 180/87 H 97 Room Air Laboratory Results Short CBC 06/04/24 Range/Units 07:39 WBC 7.39 (4.8-10.8) K/ul Hgb 12.4 (12.0-16.0) g/dl Hct 37.8 (37.0-47.0) % Plt Count 381 (130-400) K/uL BMP 06/04/24 07:39 Sodium 140 Potassium 4.1 Chloride 103 Carbon Dioxide 33 H BUN 10 Creatinine 0.58 L Glucose 100 H Calcium 9.0 (4) HTN (hypertension) Hypertension type: unspecified Qualified Code(s): I10 - Essential (primary) hypertension
[2024-06-04 08:15] LABS: Hematocrit (blood only) 37.8 % (37.0-47.0); Hemoglobin 12.4 g/dl (12.0-16.0); Mean Corpuscular Hemoglobin 31.8 pg (25.0-34.0); Mean Corpuscular Hgb Conc 32.8 g/dL (32.0-36.0); Mean Corpuscular Volume 96.9 fL (80.0-100.0); Mean Platelet Volume 8.8 fL (9.4-12.4); Platelet Count 381 K/uL (130-400); RDW Coefficient of Variation 12.1 % (11.5-14.5); RDW Standard Deviation 43.4 fL (36.4-46.3); White Blood Count 7.39 K/ul (4.8-10.8)
[2024-06-04 08:39] LABS: BUN Creatinine Ratio 17.2 (10-20); Creatinine Clr Calc Pharmacy 132.8 ml/min; Magnesium 2.1 mg/dl (1.7-2.4); Potassium 4.1 mmol/L (3.5-5.1)
[2024-06-04] MEDS: MAGNESIUM CITRATE 296 ML/BTL PO ONE (12:08)
[2024-06-04] MEDS: MAGNESIUM CITRATE 296 ML/BTL ONE (12:35)
[2024-06-05 07:24] LABS: Hematocrit (blood only) 37.3 % (37.0-47.0); Hemoglobin 12.1 g/dl (12.0-16.0); Mean Corpuscular Hemoglobin 31.6 pg (25.0-34.0); Mean Corpuscular Hgb Conc 32.4 g/dL (32.0-36.0); Mean Corpuscular Volume 97.4 fL (80.0-100.0); Mean Platelet Volume 8.7 fL (9.4-12.4); Platelet Count 425 K/uL (130-400); RDW Coefficient of Variation 12.1 % (11.5-14.5); RDW Standard Deviation 43.1 fL (36.4-46.3); Red Blood Count 3.83 M/uL (4.20-5.40); White Blood Count 7.95 K/ul (4.8-10.8)
[2024-06-05 07:48] LABS: BUN Creatinine Ratio 14.3 (10-20); Creatinine Clr Calc Pharmacy 135.9 ml/min; Magnesium 2.2 mg/dl (1.7-2.4); Potassium 3.9 mmol/L (3.5-5.1)
[2024-06-05] MEDS: LOSARTAN POTASSIUM 50 MG TAB PO SCH (08:22)
--- NOTE | 2024-06-05 09:18 | Discharge Summary ---
<Statement entered by Calin Rubalcava DO - 06/05/24 12:24> I have seen and examined the patient and have discussed the case with the provider above. I have reviewed the advanced practitioner's documentation, and I agree with, and take responsibility for that plan of care. Patient seen and examined prior to discharge. No acute issues overnight. Vital signs stable, blood pressure is seeming to improve slightly Increase losartan to 100 mg daily Medically ready to continue her care and rehabilitation at [facility] Discharge plans as outlined below Discharge Summary Date of Service June 05, 2024 Principal Dx & Hospital Course #1 = Principal Diagnosis (1) Generalized weakness: (2) Elevated troponin: (3) Atypical chest pain: (4) HTN (hypertension): Plan Cleo Vasquez is a 63-year-old female with past medical history significant for labile hypertension, generalized osteoarthritis of multiple sites on scheduled Tramadol, heart murmur, bilateral lower extremity lymphedema/venous stasis alejandrina benson [follows with [facility]] and history of avascular necrosis of the right hip who presented to the ED via EMS on 05/28/2024 for evaluation of generalized weakness and nausea/vomiting x 2 days. She was managed for the following this admission: Generalized Weakness Possible Sepsis (On Admission) -RESOLVED: No clear infectious source on admi ssion however patient's HR was in the upper 90s-low 100s, WBC 16k. CXR on presentation revealed prominent bronchovascular markings bilaterally (likely nonspecific), no evidence of overt consolidation. Respiratory BioFire panel was negative. Procalcitonin on admission was significant elevated at 65.5 therefore she was prophylactically started on IV Rocephin plus po Zithromax in the ED. She was transitioned to IV cefepime/Flagyl on admission. Urinalysis was abnormal with 2+ leukocyte esterase, WBC>50; however there was no evidence of urine bacteria. Urine culture and blood cultures were also unremarkable. C. difficile toxin was checked on 05/31/2024 due to episodes of diarrhea which was ultimately negative. MRSA nasal swab negative. Antibiotics were discontinued on 06/01/2024 as there was no true evidence of bacterial infection after thorough infectious workup. Patient was evaluated by PT/OT whom recommended rehabilitation placement. Patient is being discharged to [facility]. Elevated Troponin EKG Changes, Atypical Chest Pain - ACS Ruled-Out: Patient had a 5 to 6-hour long episode the day prior to admission where she was experiencing centralized chest pressure in addition to mild shortness of breath as well as nausea/vomiting. Patient with no significant prior cardiac history except for labile hypertension. Both of her parents however have significant history of heart disease; both parents have undergone cardiac operations includi ng bypass and catheterization. Patient's initial troponin was 46 on presentation and then repeat troponin was 49.4; repeat troponins continued to rise from 96.6 --> 98.8 before downtrending to 63.6 --> 45.8 (as of 05/29/2024). Initial EKG upon presentation revealed sinus tachycardia with PACs plus aberrant conduction, no acute ST changes. Repeat EKG performed in the ED revealed sinus rhythm with first-degree AV block, left anterior fascicular block (unchanged from prior), no acute ST changes. Resting echocardiogram this admission revealed mild concentric LVH, hyperdynamic LV, LVEF = >70%, mildly dilated LA, mild AV sclerosis and grade 1 diastolic dysfunction. Presentation was suggestive of demand ischemia ISO hypovolemia however cardiology was consulted given significant cardiac history in the patient's first-degree relatives. Patient underwent 2-day Lexiscan nuclear stress testing while admitted per cardiology's recommendation which was negative for inducible ischemia, calculated ventricular EF = 52%. This suggests noncardiac discomfort. No further inpatient cardiac testing or intervention was recommended. Cardiology signed off on the patient on 06/02/2024. Hgb A1c and lipid panel both WNL this admission. Hypertension: Patient with prior history of labile hypertension however she was not on any antihypertensives as an outpatient prior to this admission. Patient had been persistently hypertensive since being admitted. Cardiology had been assisting with adjusting her antihypertensive regimen. She was started on spironolactone 25mg daily on 05/30/2024. She was started on losartan 25mg daily initially on 05/31/2023; however her losartan dose had to be increased to 100mg daily prior to discharge due to inadequate BP control. She is being discharged on the following antihypertensives: spironolactone 25mg daily and losartan 100mg daily. She will require routine BP monitoring at [facility] to assess whether or not her antihypertensive regimen needs to be further adjusted. Hypokalemia: K+ 3.4 on 06/01/2024 - was repleted orally. K+ remains WNL at time of discharge. No arrhythmia on telemetry. Spironolactone was added on as mentioned above. Other Chronic Medical Conditions: * BLE Lymphedema/Venous Stasis Ulcers - Follows with [facility]. No evidence of cellulitis; WOCN saw patient. AmLactin ordered. Continue elli jhony stockings. * Generalized Osteoarthritis - Was previously taking Tramadol 50mg TID however she was having increased pain on 06/02/2024, therefore the dosing frequency of this medication was increased to Q4H PRN to assist with better mobility. Continue celecoxib and duloxetine. Code Status: FULL CODE PCP: NITA Galvin Disposition: Patient is being discharged to [facility] as mentioned above for further rehabilitation services. Patient seen in collaboration with Dr. Rubalcava. Please see addendum. I spent a total of 50 minutes coordinating, documenting, and providing care for this patient excluding time spent in the performance of separately billed services. This included personally reviewing all current laboratories and imaging studies, medical reconciliation, outpatient chart review and discussion with specialists. This chart was completed in part utilizing Speech Voice Recognition Software. Grammatical errors, random word insertions, pronoun errors, and incomplete sentences are an occasional consequence of this system due to software limitations, ambient noise, and hardware issues. Any formal questions or concerns about the content, text, or information contained within the body of this dictation should be directly addressed to the provider for clarification. Notes For Next Care Provider Patient will need a PCP hospital discharge follow-up appointment within the next 1-2 weeks. She was started on new BP medications as per below therefore she will require routine BP monitoring in order to assess the effectiveness of this regimen. Patient follows with [facility] for BLE lymphedema/venous stasis ulcer(s) management - next appointment is 06/23/2024 at 2PM. Medication Changes From Visit 1.) Losartan 100mg daily & Spironolactone 25mg daily started this admission secondary to persistent hypertension. 2.) Tramadol dosing changed from scheduled 50mg TID to 50mg Q4H PRN for pain associated with generalized osteoarthritis. Admission HPI Per Admitting Provider Cleo Vasquez is a 63-year-old female with past medical history significant for labile hypertension, generalized osteoarthritis of multiple sites on scheduled Tramadol, heart murmur, bilateral lower extremity lymphedema/venous stasis ulcers [follows with [facility]] and history of avascular necrosis of the right hip who presented to the ED via EMS on 05/28/2024 for evaluation of generalized weakness and nausea/vomiting x 2 days. History obtained from the patient and associated chart review. Patient seen at bedside in the ED with Dr. Abbott. Patient endorsing generalized weakness, nausea/vomiting and headache over the past 2 days. Mention she has been hydrating well however her appetite has been decreased. Her weakness has gotten to the point where she is having significant difficulty with ambulation. Of note, patient fell backwards and lightly struck the posterior aspect of her head off of her walker while trying to sit down earlier this morning which is what prompted her to call EMS. She did not lose consciousness during this minor fall. Patient mentions that she had a 5 to 6-hour long episode yesterday where she was experiencing centralized chest pressure in addition to mild shortness of breath. This has since resolved. She was experiencing some nausea/vomiting when this event was ongoing however she did not become diaphoretic. Patient with no prior cardiac history except for labile hypertension for which she is not medicated for currently. She does mention both of her parents have significant history of heart disease; reports her dad had open heart surgery, unsure if her mother has had any cardiac interventions/operations previously. Mentions that her bilateral lower extremity lymphedema appears to be at baseline which some chronic dusky erythema. Patient follows with [facility] for this as well as bilateral lower extremity venous stasis ulcers. Patient reports that her wounds have been healing and remains stable. Uses AmLactin lotion on her legs at night and wears compression stockings daily. Patient denies any recent fevers, cough or chills. She has been urinating without issue recently; denies any discoloration of her urine. No overt abdominal pain. No smoking history or frequent alcohol use. No diarrhea or any other GI concerns except for the nausea/vomiting. Admission Exam Per Admitting Provider GENERAL APPEARANCE: AxOx4, weak appearing woman HEENT: NC, AT. MMM. EOMI, clear conjunctiva HEART: Normal rate and regular rhythm, JESSICA++ LUNGS: CTAB, moving air well. No crackles or wheezes are heard. ABDOMEN: Soft, nontender, nondistended with good bowel sounds heard. EXTREMITIES: nonpitting bilateral edema NEUROLOGICAL: Grossly nonfocal. Alert and oriented, moving all 4 extremities. CN not formally tested but appear grossly intact. Observed to ambulate with normal gait. Skin: left circumfrential nontender nor warm erythema of LLE with small later ulceration that appears to be healing, small posterior patch of erythema (stable per patient) with small posterior ulceration healng with no signs of superimposed infection Discharge Exam General: Obese F, NAD, laying down in bed, pleasant, conversing appropriately. A+Ox3, euthymic affect. HEENT: Normocephalic, atraumatic. Conjunctivae normal. External ear and nose normal, oropharynx normal. Respiratory: Normal respiratory effort, lung sounds decreased throughout 2/2 habitus. No accessory muscle use. Cardiovascular: Regular rate, rhythm, normal peripheral pulses, BLE lymphedema at baseline. Vessels: No JVD. Abdomen/GI: Normal bowel sounds, soft, nondistended, nontender to palpation in all quadrants. Extremities/Musculoskeletal: No cyanosis or clubbing, able to actively move all extremities. Neurologic: No overt focal deficits, CN's II-XI not formally tested but appear grossly intact bilaterally. Skin: No rashes, normal color, warm/dry. She is wearing compression stockings on her BLE. Updated Medication List Medication Instructions Recorded Confirmed Type multivitamin 1 tab PO QAM #30 tabs 05/05/22 05/28/24 Rx celecoxib 200 mg capsule (Celebrex) 200 mg PO HS 04/24/23 05/28/24 History duloxetine 60 mg capsule,delayed 60 mg PO QAM 04/24/23 05/28/24 History release (Cymbalta) krill oil 500 mg capsule 500 mg PO BID 05/28/24 05/28/24 History ammonium lactate 5 % lotion 1 applic EXT HS BLE Venous Stasis 06/05/24 Rx (Lac-Hydrin Five) Changes #226 grams losartan 50 mg tablet 100 mg (2 x 50 mg) PO QAM #30 tabs 06/05/24 Rx spironolactone 25 mg tablet 25 mg PO QAM #30 tabs 06/05/24 Rx tramadol 50 mg tablet 50 mg PO Q4H PRN Generalized 06/05/24 Rx Osteoarthritis Pain #30 tabs Hospital Stay Data Consultations 05/28/24 08:51 ED Decision to Admit Stat 05/28/24 09:33 Consult Cardiology Routine Discharge Instructions Given to Patient (Per Discharging Provider) jennyfer Hernández were admitted to [facility] For evaluation of generalized weakness and atypical chest pain. You are initially managed with antibiotics due to concern for possible sepsis on admission however these antibiotics were stopped shortly after as thorough infectious work-up did NOT reveal any acute evidence of infection. You had experienced an episode of centralized chest pressure associated with nausea and vomiting as well as mild shortness of breath the day prior to admission which was concerning for possible cardiac injury. Your cardiac enzymes were mildly elevated this admission therefore you underwent thorough evaluation with the cardiology service while you are admitted. You underwent a 2-day Lexiscan nuclear stress test which was NEGATIVE for inducible ischemia, meaning your chest discomfort you experienced was most likely noncardiac discomfort. You did not require any further inpatient cardiac testing or intervention while you were admitted. You were noted to be hypertensive (meaning your blood pressure was elevated) while you were admitted. We started you on the following blood pressure medications: SPIRONOLACTONE 25mg daily and LOSARTAN 100mg daily to improve your blood pressure control. You are being discharged on these medications. Please continue to take these medications as prescribed! Your tramadol dose was changed from scheduled 50mg 3 times a day to 50mg every 4 hours as needed for your generalized osteoarthritis pain in order to better assist you with your mobility and overall pain control. Please continue to take this medication as prescribed! There were no other changes made to your home medication regimen. A hospital discharge follow-up appointment with your primary care provider (PCP) within the next 1-2 weeks will be arranged at [facility]. Please attend this follow-up appointment as scheduled when the time comes! Please take good care of yourself! It has been a pleasure taking care of you. If you have any questions regarding your recent hospitalization please contact [facility] and request Renard Hernandez @ [phone]. Total Time Total Time Spent Total Time Spent (In Minutes): 50
[2024-06-05 15:09] VITALS: BP 137/81; PULSE 87; RESP 18; TEMP 98.6; O2SAT 93
== END 2024-06-05 17:09 | DRG 872 ==
LOC: ED 07:02 → EDINP 09:00 → SUATTDRO 09:00 → 2N 11:05 → 3W 06-02 17:28

== ENCOUNTER 2024-06-25 05:25 | Inpatient (IN) ==
--- OUTSIDE RECORDS SUMMARY | 2024-06-25 05:28 | External Medical Summary ---
Author Name Unknown Address Unknown Organization [id number] [place] [address] [place] [id number] Laboratory Report Ordering Provider Test Date Status CARO WATSON 06/06/2024 06:16:37 Final Observation Date Value Abnormality Reference (Units ) Status BUN 06/06/2024 06:16:37 9 6-20 (mg/dL) Final Creatinine 06/06/2024 06:16:37 0.8 0.5-1.0 (mg/dL) Final Glomerular filtration rate/1.73 sq M.predicted [Volume Rate/Area] in Serum, Plasma or Blood by Creatinine-based formula (CKD-EPI) 06/06/2024 06:16:37 83 >=60 (mL/min) Final eGFR is calculated based on the CKD-EPI 2020 equation. Sodium 06/06/2024 06:16:37 141 135-146 (m mol/L) Final Potassium 06/06/2024 06:16:37 4.8 3.5-5.1 (m mol/L) Final Cl 06/06/2024 06:16:37 101 98-107 (mm ol/L) Final CO2 06/06/2024 06:16:37 30 22-32 (mmo l/L) Final Anion gap 06/06/2024 06:16:37 10 7-15 (mmol /L) Final Glucose 06/06/2024 06:16:37 94 70-120 (mg /dL) Final Calcium 06/06/2024 06:16:37 9.3 8.4-10.2 ( mg/dL) Final Performing Location [facility] [address] [place] [id number]
--- OUTSIDE RECORDS SUMMARY | 2024-06-25 05:28 | External Medical Summary ---
Author Name Unknown Address Unknown Organization [id number]:[facility] [place] [address] [place] [address] Laboratory Report Ordering Provider Test Date Status BREANNA TOBIAS 06/09/2024 13:29:40 Final Observation Date Value Abnormality Reference (Units ) Status WBC, Total 06/09/2024 13:29:40 13.19 Above high normal 4 .00-10.80 (K/uL) Final RBC 06/09/2024 13:29:40 3.67 3.85-5.15 (M/uL) Final Hemoglobin 06/09/2024 13:29:40 11.8 Below low normal 12 .0-15.3 (g/dL) Final HCT 06/09/2024 13:29:40 37.3 36.0-45.2 (%) Final MCV 06/09/2024 13:29:40 101.6 81.5-97.5 (fL) Final MCH 06/09/2024 13:29:40 32.2 27.0-34.0 (pg) Final MCHC 06/09/2024 13:29:40 31.6 32.0-36.0 (g/dL) Final RDW 06/09/2024 13:29:40 12.4 11.5-15.5 (%) Final Platelets 06/09/2024 13:29:40 506 Above high normal 14 0-400 (K/uL) Final MPV 06/09/2024 13:29:40 9.0 6.6-11.1 ( fL) Final Performing Location [facility] [place] [address]
--- OUTSIDE RECORDS SUMMARY | 2024-06-25 05:28 | External Medical Summary ---
Author Name Unknown Address Unknown Organization [id number] [address] [place] [address] Laboratory Report Ordering Provider Test Date Status CARO WATSON 06/20/2024 06:02:00 Final Observation Date Value Abnormality Reference (Units ) Status BUN 06/20/2024 06:02:00 15 6-20 (mg/dL) Final Creatinine 06/20/2024 06:02:00 0.8 0.5-1.0 (mg/dL) Final Glomerular filtration rate/1.73 sq M.predicted [Volume Rate/Area] in Serum, Plasma or Blood by Creatinine-based formula (CKD-EPI) 06/20/2024 06:02:00 77 >=60 (mL/min) Final eGFR is calculated based on the CKD-EPI 2020 equation. Sodium 06/20/2024 06:02:00 139 135-146 (m mol/L) Final Potassium 06/20/2024 06:02:00 5.2 Above high normal 3. 5-5.1 (mmol/L) Final Cl 06/20/2024 06:02:00 101 98-107 (mm ol/L) Final CO2 06/20/2024 06:02:00 26 22-32 (mmo l/L) Final Anion gap 06/20/2024 06:02:00 12 7-15 (mmol /L) Final Glucose 06/20/2024 06:02:00 91 70-120 (mg /dL) Final Calcium 06/20/2024 06:02:00 9.1 8.4-10.2 ( mg/dL) Final Performing Location [facility] [place] [address] [place] [address]
--- OUTSIDE RECORDS SUMMARY | 2024-06-25 05:28 | External Medical Summary ---
Author Name Unknown Address Unknown Organization [id number]:[facility] [address] [place] [address] Laboratory Report Ordering Provider Test Date Status BREANNA TOBIAS 06/10/2024 06:29:11 Final Observation Date Value Abnormality Reference (Units ) Status WBC, Total 06/10/2024 06:29:11 11.30 Above high normal 4 .00-10.80 (K/uL) Final RBC 06/10/2024 06:29:11 3.62 3.85-5.15 (M/uL) Final Hemoglobin 06/10/2024 06:29:11 11.5 Below low normal 12 .0-15.3 (g/dL) Final HCT 06/10/2024 06:29:11 37.8 36.0-45.2 (%) Final MCV 06/10/2024 06:29:11 104.4 81.5-97.5 (fL) Final MCH 06/10/2024 06:29:11 31.8 27.0-34.0 (pg) Final MCHC 06/10/2024 06:29:11 30.4 32.0-36.0 (g/dL) Final RDW 06/10/2024 06:29:11 12.5 11.5-15.5 (%) Final Platelets 06/10/2024 06:29:11 434 Above high normal 14 0-400 (K/uL) Final MPV 06/10/2024 06:29:11 9.2 6.6-11.1 ( fL) Final Performing Location [facility] [address] [place] [address]
--- OUTSIDE RECORDS SUMMARY | 2024-06-25 05:28 | External Medical Summary ---
Author Name Unknown Address Unknown Organization K09:[facility] [address] [place] [address] Laboratory Report Ordering Provider Test Date Status BREANNA TOBIAS 06/09/2024 13:29:40 Final Observation Date Value Abnormality Reference (Units ) Status BUN 06/09/2024 13:29:40 16 6-20 (mg/dL) Final Creatinine 06/09/2024 13:29:40 0.7 0.5-1.0 (mg/dL) Final Glomerular filtration rate/1.73 sq M.predicted [Volume Rate/Area] in Serum, Plasma or Blood by Creatinine-based formula (CKD-EPI) 06/09/2024 13:29:40 >90 >=60 (mL/min) Final eGFR is calculated based on the CKD-EPI 2020 equation. Sodium 06/09/2024 13:29:40 136 135-146 (m mol/L) Final Potassium 06/09/2024 13:29:40 4.6 3.5-5.1 (m mol/L) Final Cl 06/09/2024 13:29:40 99 98-107 (mm ol/L) Final CO2 06/09/2024 13:29:40 26 22-32 (mmo l/L) Final Anion gap 06/09/2024 13:29:40 11 7-15 (mmol /L) Final Glucose 06/09/2024 13:29:40 133 Above high normal 70 -120 (mg/dL) Final Albumin 06/09/2024 13:29:40 3.2 Below low normal 3.8 -5.0 (g/dL) Final AST (Aspartate aminotransferase) 06/09/2024 13:29:40 13 10-35 (U/L) Fin al Alk Phos 06/09/2024 13:29:40 96 35-130 (U/ L) Final Bilirubin, Total 06/09/2024 13:29:40 0.5 <=1 .2 (mg/dL) Final Calcium 06/09/2024 13:29:40 9.3 8.4-10.2 ( mg/dL) Final Protein 06/09/2024 13:29:40 6.3 6.0-8.3 (g /dL) Final ALT (Alanine aminotransferase) 06/09/2024 13:29:40 17 10-35 (U/L) Marcelo cash Performing Location [facility] [address] [place] [address]
--- OUTSIDE RECORDS SUMMARY | 2024-06-25 05:28 | External Medical Summary ---
Author Name Unknown Address Unknown Organization [id number]:[facility] [place] [address] [place] [address] Laboratory Report Ordering Provider Test Date Status CARO WATSON 06/20/2024 06:02:00 Final Observation Date Value Abnormality Reference (Units ) Status WBC, Total 06/20/2024 06:02:00 11.01 Above high normal 4 .00-10.80 (K/uL) Final RBC 06/20/2024 06:02:00 3.58 3.85-5.15 (M/uL) Final Hemoglobin 06/20/2024 06:02:00 11.0 Below low normal 12 .0-15.3 (g/dL) Final HCT 06/20/2024 06:02:00 35.6 Below low normal 36. 0-45.2 (%) Final MCV 06/20/2024 06:02:00 99.4 81.5-97.5 (fL) Final MCH 06/20/2024 06:02:00 30.7 27.0-34.0 (pg) Final MCHC 06/20/2024 06:02:00 30.9 32.0-36.0 (g/dL) Final RDW 06/20/2024 06:02:00 13.0 11.5-15.5 (%) Final Platelets 06/20/2024 06:02:00 614 Above high normal 14 0-400 (K/uL) Final MPV 06/20/2024 06:02:00 8.6 6.6-11.1 ( fL) Final Performing Location [facility] [place] [address] [place] [address]
--- OUTSIDE RECORDS SUMMARY | 2024-06-25 05:28 | External Medical Summary ---
Author Name Unknown Address Unknown Organization K09:[facility] [address] [place] [address] Laboratory Report Ordering Provider Test Date Status CARO WATSON 06/10/2024 06:37:09 Final Please straight cath to rene ect. Observation Date Value Abnormality Reference (Units ) Status Color of Urine by Auto 06/10/2024 06:37:09 Yellow Light Yellow, Yellow, Dark Yellow Final Clarity, Urine 06/10/2024 06:37:09 Slightly Cloudy Abnormal Clear Final Glucose [Mass/volume] in Urine by Automated test strip 06/10/2024 06:37:09 Negative Negative (mg/dL) Final Bilirubin.total [Presence] in Urine by Automated test strip 06/10/2024 06:37:09 Negative Negative Final Ketones [Mass/volume] in Urine by Automated test strip 06/10/2024 06:37:09 Negative Negative (mg/dL) Final Specific gravity, Urine 06/10/2024 06:37:09 1.020 1.003-1.030 Final Hemoglobin [Presence] in Urine by Automated test strip 06/10/2024 06:37:09 Large Abnormal Negative Final pH, Urine 06/10/2024 06:37:09 6.0 5.0-7.5 (Units) Final Protein [Mass/volume] in Urine by Automated test strip 06/10/2024 06:37:09 100 Abnormal Negative (mg/dL) Final Urobilinogen [Mass/volume] in Urine by Automated test strip 06/10/2024 06:37:09 0.2 0.2, 1.0 (mg/dL) Final Nitrite [Presence] in Urine by Automated test strip 06/10/2024 06:37:09 Negative Negative Final Leukocyte esterase [Presence] in Urine by Automated test strip 06/10/2024 06:37:09 Trace Abnormal Negative Final RBC, Urine 06/10/2024 06:37:09 30-49 Abnormal 0-2 (/HPF) Final WBC, Urine 06/10/2024 06:37:09 6-9 Abnormal 0-2 (/HPF) Final Bacteria [#/area] in Urine sediment by Microscopy high power field 06/10/2024 06:37:09 26-50 Abnormal 0-25 (/HPF) Final Performing Location [facility] [address] [place] [address]
--- OUTSIDE RECORDS SUMMARY | 2024-06-25 05:28 | External Medical Summary ---
Author Name Unknown Address Unknown Organization [id number]:[facility] [address] [place] [address] Laboratory Report Ordering Provider Test Date Status CARO WATSON 06/13/2024 05:37:00 Final Observation Date Value Abnormality Reference (Units ) Status WBC, Total 06/13/2024 05:37:00 9.28 4.00-10.8 0 (K/uL) Final RBC 06/13/2024 05:37:00 3.53 3.85-5.15 (M/uL) Final Hemoglobin 06/13/2024 05:37:00 11.2 Below low normal 12 .0-15.3 (g/dL) Final HCT 06/13/2024 05:37:00 34.7 Below low normal 36. 0-45.2 (%) Final MCV 06/13/2024 05:37:00 98.3 81.5-97.5 (fL) Final MCH 06/13/2024 05:37:00 31.7 27.0-34.0 (pg) Final MCHC 06/13/2024 05:37:00 32.3 32.0-36.0 (g/dL) Final RDW 06/13/2024 05:37:00 12.3 11.5-15.5 (%) Final Platelets 06/13/2024 05:37:00 599 Above high normal 14 0-400 (K/uL) Final MPV 06/13/2024 05:37:00 9.2 6.6-11.1 ( fL) Final Performing Location [facility] [place] [address] [place] [address]
--- OUTSIDE RECORDS SUMMARY | 2024-06-25 05:28 | External Medical Summary ---
Author Name Unknown Address Unknown Organization K09:[facility] [address] [facility] [place] [address] Laboratory Report Ordering Provider Test Date Status BREANNA TOBIAS 06/09/2024 13:29:40 Final Observation Date Value Abnormality Reference (Units ) Status SYNC LEUKOCYTES IN BLOOD BY AUTOMATED COUNT 06/09/2024 13:29:40 13.19 Above high normal 4.00-10.80 (K/uL) Final Segs 06/09/2024 13:29:40 88.2 Above high normal 40.0-75.0 (%) Final Lymphs % 06/09/2024 13:29:40 3.4 Below low normal 18.0-42.0 (%) Final Monos 06/09/2024 13:29:40 8.1 1.0-11.0 (%) Final Eosinophils 06/09/2024 13:29:40 0.1 0.0-6.0 (%) Final Basos 06/09/2024 13:29:40 0.2 0.0-2.0 (%) Final Absolute Segs 06/09/2024 13:29:40 11.64 Above high normal 1.80-7.70 (K/uL) Final Lymphs, absolute 06/09/2024 13:29:40 0.45 Below low normal 1.00-4.80 (K/ul) Final Monos, Abs 06/09/2024 13:29:40 1.07 0.00-1.10 (K/uL) Final Eos, Abs 06/09/2024 13:29:40 0.01 0.00-0.70 (K/uL) Final Basos, Abs 06/09/2024 13:29:40 0.02 0.00-0.20 (K/uL) Final Performing Location [facility] [address] [place] [address]
--- OUTSIDE RECORDS SUMMARY | 2024-06-25 05:28 | External Medical Summary ---
Author Name Unknown Address Unknown Organization K09:[facility] [place] [address] Laboratory Report Ordering Provider Test Date Status BREANNA TOBIAS 06/10/2024 06:29:11 Final Observation Date Value Abnormality Reference (Units ) Status BUN 06/10/2024 06:29:11 13 6-20 (mg/dL) Final Creatinine 06/10/2024 06:29:11 0.7 0.5-1.0 (mg/dL) Final Glomerular filtration rate/1.73 sq M.predicted [Volume Rate/Area] in Serum, Plasma or Blood by Creatinine-based formula (CKD-EPI) 06/10/2024 06:29:11 >90 >=60 (mL/min) Final eGFR is calculated based on the CKD-EPI 2020 equation. Sodium 06/10/2024 06:29:11 136 135-146 (m mol/L) Final Potassium 06/10/2024 06:29:11 4.9 3.5-5.1 (m mol/L) Final Cl 06/10/2024 06:29:11 101 98-107 (mm ol/L) Final CO2 06/10/2024 06:29:11 22 22-32 (mmo l/L) Final Anion gap 06/10/2024 06:29:11 13 7-15 (mmol /L) Final Glucose 06/10/2024 06:29:11 105 70-120 (mg /dL) Final Calcium 06/10/2024 06:29:11 8.8 8.4-10.2 ( mg/dL) Final Performing Location [facility] [place] [address]
--- OUTSIDE RECORDS SUMMARY | 2024-06-25 05:28 | External Medical Summary ---
Author Name Unknown Address Unknown Organization K0G:[facility] [place] [address] [place] [address] Laboratory Report Ordering Provider Test Date Status CARO WATSON 06/13/2024 05:37:00 Final Observation Date Value Abnormality Reference (Units ) Status BUN 06/13/2024 05:37:00 9 6-20 (mg/dL) Final Creatinine 06/13/2024 05:37:00 0.6 0.5-1.0 (mg/dL) Final Glomerular filtration rate/1.73 sq M.predicted [Volume Rate/Area] in Serum, Plasma or Blood by Creatinine-based formula (CKD-EPI) 06/13/2024 05:37:00 >90 >=60 (mL/min) Final eGFR is calculated based on the CKD-EPI 2020 equation. Sodium 06/13/2024 05:37:00 135 135-146 (m mol/L) Final Potassium 06/13/2024 05:37:00 4.6 3.5-5.1 (m mol/L) Final Cl 06/13/2024 05:37:00 97 Below low normal 98- 107 (mmol/L) Final CO2 06/13/2024 05:37:00 27 22-32 (mmo l/L) Final Anion gap 06/13/2024 05:37:00 11 7-15 (mmol /L) Final Glucose 06/13/2024 05:37:00 105 70-120 (mg /dL) Final Calcium 06/13/2024 05:37:00 8.7 8.4-10.2 ( mg/dL) Final Performing Location [facility] [place] [address] [place] [address]
--- OUTSIDE RECORDS SUMMARY | 2024-06-25 05:28 | External Medical Summary ---
Author Name Unknown Address Unknown Organization K01:[facility] [address] [place] [id number] Laboratory Report Ordering Provider Test Date Status CARO WATSON 06/10/2024 06:37:09 Final Please do straight cath to c ollect urine. Observation Date Value Abnormality Reference (Units ) Status Bacteria identified in Specimen by Culture 06/10/2024 06:37:09 < 100 colonies/ml (no growth) Final Test: Culture, Urine, Quanti tative
Specimen Source: Urine, Catheter
Specimen Type: Urine
Specimen Date: 06/10/202437
Result Date: 06/11/2024 0912
Result Status: Final result
Resulting Lab: [facility]
[address]
[place] [id number]

CULTURE

< 100 colonies/ml (no growth)

null Performing Location [facility] - [address] [place] [id number]
--- OUTSIDE RECORDS SUMMARY | 2024-06-25 05:29 | External Medical Summary ---
Author Name Unknown Address Unknown Organization K0G:[facility] [place] [address] [place] [address] Laboratory Report Ordering Provider Test Date Status CARO WATSON 06/06/2024 06:16:37 Final Observation Date Value Abnormality Reference (Units ) Status WBC, Total 06/06/2024 06:16:37 8.37 4.00-10.8 0 (K/uL) Final RBC 06/06/2024 06:16:37 3.83 3.85-5.15 (M/uL) Final Hemoglobin 06/06/2024 06:16:37 12.2 12.0-15.3 (g/dL) Final HCT 06/06/2024 06:16:37 38.6 36.0-45.2 (%) Final MCV 06/06/2024 06:16:37 100.8 81.5-97.5 (fL) Final MCH 06/06/2024 06:16:37 31.9 27.0-34.0 (pg) Final MCHC 06/06/2024 06:16:37 31.6 32.0-36.0 (g/dL) Final RDW 06/06/2024 06:16:37 11.9 11.5-15.5 (%) Final Platelets 06/06/2024 06:16:37 489 Above high normal 14 0-400 (K/uL) Final MPV 06/06/2024 06:16:37 8.9 6.6-11.1 ( fL) Final Performing Location [facility] [place] [address] [place] [address]
[2024-06-25 06:05] LABS: Basophils # (auto) 0.04 K/uL (0.00-0.20); Basophils % (auto) 0.4 %; Eosinophils # (auto) 0.11 K/uL (0.00-0.50); Eosinophils % (auto) 1.1 %; Hematocrit (blood only) 35.4 % (37.0-47.0); Hemoglobin 11.4 g/dl (12.0-16.0); Immature Granulocytes # (auto) 0.05 K/uL (0.01-0.20); Immature Granulocytes % (auto) 0.5 %; Lymphocytes # (auto) 1.32 K/uL (1.20-3.40); Lymphocytes % (auto) 12.6 %; Mean Corpuscular Hemoglobin 30.4 pg (25.0-34.0); Mean Corpuscular Hgb Conc 32.2 g/dL (32.0-36.0); Mean Corpuscular Volume 94.4 fL (80.0-100.0); Mean Platelet Volume 8.5 fL (9.4-12.4); Monocytes # (auto) 0.71 K/uL (0.11-0.59); Monocytes % (auto) 6.8 %; Neutrophils # (auto) 8.21 K/uL (1.40-6.50); Neutrophils % (auto) 78.6 %; Platelet Count 687 K/uL (130-400); RDW Coefficient of Variation 12.8 % (11.5-14.5); RDW Standard Deviation 44.2 fL (36.4-46.3); Red Blood Count 3.75 M/uL (4.20-5.40); White Blood Count 10.44 K/ul (4.8-10.8)
[2024-06-25 06:17] LABS: Albumin Globulin Ratio 0.8 (0.9-2); Albumin Level 3.2 gm/dl (3.4-5.0); Bilirubin,Total 0.4 mg/dl (0.2-1.0); Calcium 9.5 mg/dl (8.6-10.3); Globulin 4.1 gm/dl (2.5-4.0); Total Protein 7.3 gm/dl (6.0-8.3)
[2024-06-25 06:23] LABS: Troponin I High Sensitivity 15.6 pg/ml (0-14)
[2024-06-25 06:32] LABS: Thyroid Stimulating Hormone 2.183 uIu/ml (0.300-4.500)
[2024-06-25 06:45] LABS: Adenovirus PCR Not Detected (NotDetected); Bordetella parapertussis PCR Not Detected (NotDetected); Bordetella pertussis PCR Not Detected (NotDetected); Chlamydia pneumoniae PCR Not Detected (NotDetected); Coronavirus 229E PCR Not Detected (NotDetected); Coronavirus CoV-2 (COVID19)PCR Not Detected (NotDetected); Coronavirus HKU1 PCR Not Detected (NotDetected); Coronavirus NL63 PCR Not Detected (NotDetected); Coronavirus OC43PCR DETECTED (NotDetected); Human Metapneumovirus PCR Not Detected (NotDetected); Influenza A PCR Not Detected (NotDetected); Influenza B PCR Not Detected (NotDetected); Mycoplasma pneumoniae PCR Not Detected (NotDetected); Parainfluenza Virus 1 PCR Not Detected (NotDetected); Parainfluenza Virus 2 PCR Not Detected (NotDetected); Parainfluenza Virus 3 PCR Not Detected (NotDetected); Parainfluenza Virus 4 PCR Not Detected (NotDetected); Respiratory Syncytial VirusPCR Not Detected (NotDetected); Rhinovirus/Enterovirus PCR Not Detected (NotDetected)
--- NOTE | 2024-06-25 07:17 | Emergency Department Note ---
Impression & Plan Ambulatory dysfunction, Chronic right hip pain, Upper respiratory infection, viral, Coronavirus infection ED Provider Note NAME: BRYAN ASENCIO AGE: 63 SEX: F : 1960 ARRIVES VIA: Ambulance INFORMANT: Patient ED PROVIDER(S): Sukhwinder Anderson DO CHIEF COMPLAINT: Cough, weakness HPI: Patient is a 63-year-old female with a past medical history of hypertension, demand ischemia, DJD and lipidemia who presents to the ER for weakness. She was seen evaluated here last week and discharged to [facility]. She got discharged from [facility] yesterday following being placed there for weakness secondary to a necrotic hip. She notes that since being discharged she has been unable to get up and move. has been unable to help her out. She notes that she has no fevers but does admit to a cough which has been present since last week and is new. It is worse. No headache or change in vision. No chest pain or shortness of breath. No belly pain. No nausea, vomiting, or diarrhea. No dysuria, urgency, or frequency. No other exacerbating or remitting factors. ADDITIONAL HISTORY OBTAINED: Per HPI Chronic Medical/Social Conditions Affecting Care: Per HPI PAST MEDICAL HISTORY:See Below PAST SURGICAL HISTORY:See Below FAMILY HISTORY:See Below SOCIAL HISTORY:See Below HOME MEDICATIONS:See Below ALLERGIES:See Below VITALS:See Below PHYSICAL EXAMINATION: GENERAL: Sitting up in bed, alert, well appearing, well nourished, no distress, non-toxic, intermittent cough EYE EXAM: normal conjunctiva. PERRL and EOM's grossly intact. OROPHARYNX: mucous membranes are moist NECK: supple, no nuchal rigidity, no adenopathy, non-tender LUNGS: Clear to auscultation. Normal chest wall mechanics HEART: no murmurs, S1 normal and S2 normal ABDOMEN: abdomen soft, non-tender, normo-active bowel sounds, no masses, no rebound or guarding. BACK: Back is symmetrical on inspection and there is no deformity, no midline tenderness, no CVA tenderness. SKIN: no rashes and no bruising UPPER EXTREMITIES: upper extremities are grossly normal. LOWER EXTREMITIES: No pitting edema. NEURO EXAM: Normal sensorium, cranial nerves II-XII grossly intact, normal speech, no gross weakness of arms, no gross weakness of legs. MEDICAL DECISION MAKING: Patient is a 63-year-old female who presents ER for the above-stated complaint. IV was established and blood work was obtained. Patient has no complaints with the exception of weakness and she feels as though she was discharged too early from the rehab facility. Labs showed no leukocytosis. Mild anemia at 11.4. BMP along with LFTs bilirubin was unremarkable. Troponin was initially positive at 15 which appear to be consistent with her baseline but was repleted and trended down to 12. TSH unremarkable. Viral panel was positive for glover OC 43. Discussed with our pharmacist critical care as well as hospitalist for further evaluation management and treatment as the patient could not be accepted back to either rehab facility this morning. Consults/Care Managements Discussions: Per [facility] Triage Nursing notes reviewed. Limited review of prior medical records performed Vital Signs: reviewed and remarkable for no significant abnormalities Differential diagnosis: Infection, dehydration, metabolic abnormality, hypo/hyperglycemia, electrolyte disturbance, anemia, hypoxia, cardiac sources, intracerebral event, toxicologic, neurologic, as well as other pathologies. ER treatment provided: See below Diagnostics interpreted by me include EKG and cardiac monitoring as listed below: -Cardiac Monitoring: An order was placed for continuous cardiac monitoring. The monitor shows a rate of 80 with sinus rhythm. -ECG: Sinus rhythm rate 87 Normal axis No PVCs QTc 421 T wave inversion in inferior leads -Laboratory studies:Interpreted by me as stated above in MDM and shown below. Imaging studies: Xrays: As interpreted by me: Portable AP upright 1 view of the chest shows no focal infiltrate CTs show: none Procedures:none Critical Care: None Past Med/Surg History Problem List (Updated 06/25/24 @ 09:40 by Sukhwinder Anderson DO) Coronavirus infection (Acute) Upper respiratory infection, viral (Acute) HTN (hypertension) Demand ischemia Atypical chest pain Generalized weakness (Acute) Fall (Acute) Cough (Acute) Elevated troponin (Acute) Traumatic open wound of left lower leg Venous ulcers of both lower extremities (Acute) Abnormal ankle brachial index Lymphedema (Chronic) Chronic venous insufficiency (Chronic) DJD (degenerative joint disease) Chronic right hip pain (Acute) Ambulatory dysfunction (Acute) Leg swelling Medical History Elevated troponin UTI (urinary tract infection) Fall Chronic joint pain Obesity Bilateral leg pain Bilateral leg weakness Surgical History History of Family History Other Asthma Coronary heart disease Social History Smoking Status: Never smoker Second Hand Exposure: No; Do You Dip or Chew Tobacco: No; Hx Alcohol Use: No Hx Substance Use: No Preferred Language: Romanian Communication Ability: Effective Visual Impairment: Limited Hearing Ability: Normal Air Filler Required: No Beliefs That Will Affect Care: None marital status: Current Living Situation: Spouse Current Living Situation Comment: current occupational status: retired How many Children do You have: 2 Feels Safe at Home: Yes Diet Comment: Love sugar. High protien caffeine: No during the past year weight has: decreased > 10 lbs Assistive Devices: Walker Allergies Allergies Allergy/AdvReac Type Severity Reaction Status Date / Time No Known Allergies Allergy Unverified 05/05/24 13:02 Home Meds Home Medications Medication Instructions Recorded Confirmed celecoxib 200 mg capsule (Celebrex) 200 mg PO HS 04/24/23 06/25/24 duloxetine 60 mg capsule,delayed 60 mg PO QAM 04/24/23 06/25/24 release (Cymbalta) krill oil 500 mg capsule 500 mg PO BID 05/28/24 06/25/24 oxycodone 1 tab PO UD 06/25/24 06/25/24 Previous Rx's Medication Instructions Recorded multivitamin 1 tab PO QAM #30 tabs 05/05/22 ammonium lactate 5 % lotion 1 applic EXT HS BLE Venous Stasis 06/05/24 (Lac-Hydrin Five) Changes #226 grams losartan 50 mg tablet 100 mg (2 x 50 mg) PO QAM #30 tabs 06/05/24 spironolactone 25 mg tablet 25 mg PO QAM #30 tabs 06/05/24 tramadol 50 mg tablet 50 mg PO Q4H PRN Generalized 06/05/24 Osteoarthritis Pain #30 tabs Results & Data (ED) Vital Signs Vital Signs - 24 hr 06/25/24 05:28 06/25/24 05:28 06/25/24 05:28 Temperature 36.7 C Temperature Source Oral Pulse Rate 86 Pulse Rate from SpO2 Sensor Pulse Rhythm Regular Pulse Strength Normal Respiratory Rate 13 Respiratory Effort / Characteristics Non-Labored Respiratory Depth Normal Respiratory Pattern Regular Blood Pressure 132/89 Blood Pressure Mean 103 Blood Pressure Position Lying Pulse Oximetry 97 Oxygen Delivery Method Room Air Room Air Room Air Sepsis Recent Fever Within 48 Hours No Sepsis New/Unexplained Change in Mental Status No Sepsis Action Taken by Nursing No Action Required 06/25/24 05:31 06/25/24 05:45 06/25/24 06:00 Temperature Temperature Source Pulse Rate 81 Pulse Rate from SpO2 Sensor 80 Pulse Rhythm Pulse Strength Respiratory Rate 17 Respiratory Effort / Characteristics Respiratory Depth Respiratory Pattern Blood Pressure 132/89 157/87 H Blood Pressure Mean 108 109 Blood Pressure Position Pulse Oximetry 96 Oxygen Delivery Method Sepsis Recent Fever Within 48 Hours Sepsis New/Unexplained Change in Mental Status Sepsis Action Taken by Nursing 06/25/24 06:04 06/25/24 06:12 06/25/24 06:24 Temperature Temperature Source Pulse Rate 78 75 75 Pulse Rate from SpO2 Sensor 75 76 Pulse Rhythm Pulse Strength Respiratory Rate 19 18 Respiratory Effort / Characteristics Respiratory Depth Respiratory Pattern Blood Pressure Blood Pressure Mean Blood Pressure Position Pulse Oximetry 93 93 Oxygen Delivery Method Sepsis Recent Fever Within 48 Hours Sepsis New/Unexplained Change in Mental Status Sepsis Action Taken by Nursing 06/25/24 06:30 06/25/24 07:00 06/25/24 08:18 Temperature Temperature Source Pulse Rate 89 80 80 Pulse Rate from SpO2 Sensor 90 80 82 Pulse Rhythm Pulse Strength Respiratory Rate 20 20 22 Respiratory Effort / Characteristics Respiratory Depth Respiratory Pattern Blood Pressure 159/103 H Blood Pressure Mean 121 Blood Pressure Position Pulse Oximetry 94 95 100 Oxygen Delivery Method Room Air Room Air Sepsis Recent Fever Within 48 Hours Sepsis New/Unexplained Change in Mental Status Sepsis Action Taken by Nursing 06/25/24 08:57 Temperature Temperature Source Pulse Rate 81 Pulse Rate from SpO2 Sensor 81 Pulse Rhythm Pulse Strength Respiratory Rate 18 Respiratory Effort / Characteristics Respiratory Depth Respiratory Pattern Blood Pressure 168/100 H Blood Pressure Mean 122 Blood Pressure Position Pulse Oximetry 99 Oxygen Delivery Method Room Air Sepsis Recent Fever Within 48 Hours Sepsis New/Unexplained Change in Mental Status Sepsis Action Taken by Nursing Laboratory Data 06/25/24 05:39 06/25/24 05:39 Lab Results 06/25/24 06/25/24 Range/Units 05:39 07:47 WBC 10.44 (4.8-10.8) K/ul RBC 3.75 L (4.20-5.40) M/uL Hgb 11.4 L (12.0-16.0) g/dl Hct 35.4 L (37.0-47.0) % MCV 94.4 (80.0-100.0) fL MCH 30.4 (25.0-34.0) pg MCHC 32.2 (32.0-36.0) g/dL RDW Std Deviation 44.2 (36.4-46.3) fL RDW Coeff of Da 12.8 (11.5-14.5) % Plt Count 687 H (130-400) K/uL MPV 8.5 L (9.4-12.4) fL Immature Gran % (Auto) 0.5 % Neut % (Auto) 78.6 % Lymph % (Auto) 12.6 % Norman % (Auto) 6.8 % Eos % (Auto) 1.1 % Baso % (Auto) 0.4 % Neut # (Auto) 8.21 H (1.40-6.50) K/uL Lymph # (Auto) 1.32 (1.20-3.40) K/uL Norman # (Auto) 0.71 H (0.11-0.59) K/uL Eos # (Auto) 0.11 (0.00-0.50) K/uL Baso # (Auto) 0.04 (0.00-0.20) K/uL Immature Gran # (Auto) 0.05 (0.01-0.20) K/uL Sodium 140 (136-145) mmol/L Potassium 4.0 (3.5-5.1) mmol/L Chloride 104 (98-107) mmol/L Carbon Dioxide 26 (21-32) mmol/L Anion Gap 10 (3-11) BUN 23 (6-23) mg/dl Creatinine 0.96 (0.6-1.2) mg/dl Est Cr Clr Drug Dosing 78.0 ml/min eGFR 65.66 BUN/Creatinine Ratio 24.0 H (10-20) Glucose 85 (70-99(Fasting)) mg/dl Calcium 9.5 (8.6-10.3) mg/dl Magnesium 2.0 (1.7-2.4) mg/dl Total Bilirubin 0.4 (0.2-1.0) mg/dl AST 15 (13-39) U/L ALT 14 (7-52) U/L Alkaline Phosphatase 83 (34-104) U/L Troponin I High Sens 15.6 H 12.6 (0-14) pg/ml Total Protein 7.3 (6.0-8.3) gm/dl Albumin 3.2 L (3.4-5.0) gm/dl Globulin 4.1 H (2.5-4.0) gm/dl Albumin/Globulin Ratio 0.8 L (0.9-2) TSH 2.183 (0.300-4.500) uIu/ml Adenovirus (PCR) Not Detected (NotDetected) B. pertussis DNA (PCR) Not Detected (NotDetected) B.parapertussis DNA PCR Not Detected (NotDetected) C. pneumoniae DNA (PCR) Not Detected (NotDetected) Coronavirus OC43 (PCR) DETECTED A (NotDetected) Coronavirus HKU1 (PCR) Not Detected (NotDetected) Coronavirus 229E (PCR) Not Detected (NotDetected) SARS-CoV-2 (PCR) Not Detected (NotDetected) Coronavirus NL63 (PCR) Not Detected (NotDetected) Human Metapneumovir PCR Not Detected (NotDetected) Influenza Type A (PCR) Not Detected (NotDetected) Influenza Type B (PCR) Not Detected (NotDetected) M. pneumoniae (PCR) Not Detected (NotDetected) Parainfluenza 1 (PCR) Not Detected (NotDetected) Parainfluenza 2 (PCR) Not Detected (NotDetected) Parainfluenza 3 (PCR) Not Detected (NotDetected) Parainfluenza 4 (PCR) Not Detected (NotDetected) RSV (PCR) Not Detected (NotDetected) Entero/Rhino (PCR) Not Detected (NotDetected) Administered Medications Discontinued Medications Sodium Chloride (Nss) 1,000 mls @ 999 mls/hr IV .[id number] ONE Stop: 06/25/24 08:10 Last Infusion: 06/25/24 09:18 Dose: Infused Documented By: Admin: 06/25/24 07:20 Dose: 999 mls/hr Documented By: Imaging Data Radiologist's Impression: Chest X-Ray 06/25/24 05:28 EXAM: XR chest 1V portable CLINICAL HISTORY: WEAKNESS JMF TECHNIQUE: An X-ray image of the chest is obtained in 1 AP projection. COMPARISON: Prior study dated 05/28/2024. FINDINGS: Pulmonary Parenchyma: Prominent bronchovascular markings and hilar vessel seen bilaterally. Atelectatic bands seen in the right lower zone. No evidence of consolidation, collapse, or focal opacities. No pulmonary nodules are identified. No evidence of pleural effusion or pleural thickening. Heart and Mediastinum: Cardiomegaly. No mediastinal widening or masses. No hilar or mediastinal lymphadenopathy. Bony Thorax: Bony thorax appears intact without fractures or deformities. Soft Tissues: Soft tissues overlying the chest wall are unremarkable. IMPRESSION: 1. Prominent bronchovascular markings and hilar vessel seen bilaterally. 2. Atelectatic bands seen in the right lower zone. 3. Cardiomegaly. 4. No interval changes. Electronically signed by Annalisa Radford 06-25-2024 08:12 AM Discharge Plan Visit Data Chief Complaint: Weakness Stated Complaint: Weakness ED Provider: Sukhwinder Anderson Discharge Problem: Ambulatory dysfunction, Chronic right hip pain, Upper respiratory infection, viral, Coronavirus infection Forms Stand Alone Forms: My [facility] [id number] Prescriptions Prescriptions: No Action celecoxib [Celebrex] 200 mg capsule 200 mg PO HS duloxetine [Cymbalta] 60 mg capsule,delayed release(DR/EC) 60 mg PO QAM multivitamin Tablet 1 tab PO QAM Qty: 30 0RF krill oil 500 mg Capsule 500 mg PO BID losartan 50 mg Tablet 100 mg PO QAM Qty: 30 0RF tramadol 50 mg Tablet 50 mg PO Q4H PRN (Reason: Generalized Osteoarthritis Pain) Qty: 30 0RF spironolactone 25 mg Tablet 25 mg PO QAM Qty: 30 0RF Lac-Hydrin Five 5 % Lotion 1 applic EXT HS Qty: 226 0RF oxycodone 1 tab PO UD Rx Instructions: per pt, she was put on oxycodone extended release. She's unsure of the strength but knows it's a time released version and is BID Fill history unavailable. Referrals Referrals: PCP,NO [Primary Care Provider] -
[2024-06-25] MEDS: SODIUM CHLORIDE 0.9% 1,000 ML IV ONE (07:20)
--- NOTE | 2024-06-25 08:13 | XRay Report ---
EXAM: XR chest 1V portable CLINICAL HISTORY: WEAKNESS JMF TECHNIQUE: An X-ray image of the chest is obtained in 1 AP projection. COMPARISON: Prior study dated 05/28/2024. FINDINGS: Pulmonary Parenchyma: Prominent bronchovascular markings and hilar vessel seen bilaterally. Atelectatic bands seen in the right lower zone. No evidence of consolidation, collapse, or focal opacities. No pulmonary nodules are identified. No evidence of pleural effusion or pleural thickening. Heart and Mediastinum: Cardiomegaly. No mediastinal widening or masses. No hilar or mediastinal lymphadenopathy. Bony Thorax: Bony thorax appears intact without fractures or deformities. Soft Tissues: Soft tissues overlying the chest wall are unremarkable. IMPRESSION: 1. Prominent bronchovascular markings and hilar vessel seen bilaterally. 2. Atelectatic bands seen in the right lower zone. 3. Cardiomegaly. 4. No interval changes. Electronically signed by Annalisa Radford 06-25-2024 08:12 AM
--- NOTE | 2024-06-25 09:16 | History & Physical Report ---
Date of Service June 25, 2024 Assessment & Plan (1) Generalized weakness: (2) HTN (hypertension): (3) Lymphedema: (4) Venous ulcers of both lower extremities: (5) Obesity: Plan This is a 63-year-old female with PMH of labile hypertension, generalized osteoarthritis of multiple sites on scheduled Tramadol, heart murmur, bilateral lower extremity lymphedema/venous stasis ulcers (follows with [facility]) and history of avascular necrosis of the right hip who presents with ongoing weakness at home and inability to get up on her own. Patient was recently admitted from for generalized weakness and possible sepsis although no infectious source once workup completed. Also underwent lexiscan nuclear stress test during admission for elevated troponin that was negative for inducible ischemia suggesting noncardiac discomfort. Has significant chronic lymphedema and history of avascular necrosis of R hip that contribute to ambulation difficulties. Was discharged to [facility] for further conditioning and was discharged back home yesterday. Since return home from rehab, patient has been unable to get up and ambulate on her own. Unable to get up from lift chair this AM and had to call EMS. Feels she needs further PT/OT for conditioning, requesting [facility]. Generalized weakness Ambulatory dysfunction at baseline given chronic lymphedema, R hip pain, morbid obesity, osteoarthritis PT/OT evals Fall precautions Tylenol, Tramadol PRN for pain Lymphedema Follows with [place] [facility] for lymphedema and venous stasis ulcers- unable to make f/u appt on 06/23 due to still being at [facility] - routine wound consult placed HTN Given missed AM meds - continue losartan 100mg daily and spironolactone 25mg adjusted on previous admission Coronavirus infection Resp viral panel + coronavirus OC43 Saturation at 99% on room air Antitussives PRN Abnormal UA No urinary symptoms but continues to feel weak. Will treat empirically with Rocephin, follow urine culture DVT Ppx: SQ lovenox Code status: FULL PCP: Hu Dispo: admitted to med/surg, requesting placement at [facility] for continued rehab (no beds currently) Patient seen in collaboration with Dr. Pickens. Please see addendum. I spent a total of 75 minutes coordinating, documenting, and providing care for this patient excluding time spent in the performance of separately billed services or time spent by another provider/QHP. History of Present Illness Chief Complaint: Generalized weakness Primary Care Provider: NO PCP This is a 63-year-old female with PMH of labile hypertension, generalized osteoarthritis of multiple sites on scheduled Tramadol, heart murmur, bilateral lower extremity lymphedema/venous stasis ulcers (follows with [facility]) and history of avascular necrosis of the right hip who presents with ongoing weakness at home and inability to get up on her own. Patient was recently admitted from for generalized weakness and possible sepsis although no infectious source once workup completed. Also underwent lexiscan nuclear stress test during admission for elevated troponin that was negative for inducible ischemia suggesting noncardiac discomfort. Has significant chronic lymphedema and history of avascular necrosis of R hip that contribute to ambulation difficulties. Was discharged to [facility] for further conditioning and was di scharged back home yesterday. Returned home from rehab yesterday and has felt very weak. helps with things around the house but is unable to help lift and transfer patient. She was unable to get out of her lift chair this morning and could not help either, so had to call EMS for help. Only new symptoms since last admission is a cough that she has had intermittently for the past few days. Denies any fever or chills. No lightheadedness, chest pain, shortness of breath, nausea, vomiting, abdominal pain, dysuria, diarrhea or constipation. No change to chronic lower extremity lymphedema/venous stasis ulcers. Was unable to make follow-up appointment at wound clinic on 06/23 due to still being at [facility]. Allergies Allergy/AdvReac Type Severity Reaction Status Date / Time No Known Allergies Allergy Unverified 05/05/24 13:02 Home Medications Medication Instructions Recorded Confirmed Type multivitamin 1 tab PO QAM #30 tabs 05/05/22 06/25/24 Rx celecoxib 200 mg capsule (Celebrex) 200 mg PO HS 04/24/23 06/25/24 History duloxetine 60 mg capsule,delayed 60 mg PO QAM 04/24/23 06/25/24 History release (Cymbalta) krill oil 500 mg capsule 500 mg PO BID 05/28/24 06/25/24 History ammonium lactate 5 % lotion 1 applic EXT HS BLE Venous Stasis 06/05/24 06/25/24 Rx (Lac-Hydrin Five) Changes #226 grams losartan 50 mg tablet 100 mg (2 x 50 mg) PO QAM #30 tabs 06/05/24 06/25/24 Rx spironolactone 25 mg tablet 25 mg PO QAM #30 tabs 06/05/24 06/25/24 Rx tramadol 50 mg tablet 50 mg PO Q4H PRN Generalized 06/05/24 06/25/24 Rx Osteoarthritis Pain #30 tabs oxycodone 1 tab PO UD 06/25/24 06/25/24 History Past Med/Surg History Problem List (Updated 06/25/24 @ 12:02 by Brendan Mccabe) Coronavirus infection (Acute) Upper respiratory infection, viral (Acute) HTN (hypertension) Demand ischemia Atypical chest pain Generalized weakness (Acute) Fall (Acute) Cough (Acute) Elevated troponin (Acute) Traumatic open wound of left lower leg Venous ulcers of both lower extremities (Acute) Abnormal ankle brachial index Lymphedema (Chronic) Chronic venous insufficiency (Chronic) DJD (degenerative joint disease) Chronic right hip pain (Acute) Ambulatory dysfunction (Acute) Leg swelling Medical History Elevated troponin UTI (urinary tract infection) Fall Chronic joint pain Obesity Bilateral leg pain Bilateral leg weakness Surgical History History of Family History Other Asthma Coronary heart disease Social History Smoking Status: Never smoker Second Hand Exposure: No; Do You Dip or Chew Tobacco: No; Hx Alcohol Use: No Hx Substance Use: No Preferred Language: Ukrainian Communication Ability: Effective Visual Impairment: Limited Hearing Ability: Normal Box Press Operator Required: No Beliefs That Will Affect Care: None marital status: Current Living Situation: Spouse Current Living Situation Comment: current occupational status: retired How many Children do You have: 2 Feels Safe at Home: Yes Diet Comment: Love sugar. High protien caffeine: No during the past year weight has: decreased > 10 lbs Assistive Devices: Walker Review of Systems Review of Systems: At least ten systems reviewed and negative except as noted in the HPI. Physical Exam Physical Exam: General Appearance: WD/WN, vitals as above, NAD, sitting up in bed, pleasant, conversing easily, morbidly obese Head: normocephalic, atraumatic Eyes: normal inspection, PERRL, conjunctivae normal, anicteric sclerae ENT: external ear and nose normal, oropharynx normal Neck: normal visual inspection, trachea midline, no thyromegaly Respiratory: normal respiratory effort, lungs clear to auscultation, no wheeze, rales, rhonchi. No accessory muscle use Cardiovascular: regular rate, rhythm,normal peripheral pulses Chest: normal inspection of chest Abdomen/GI: normal bowel sounds, soft, nontender, no hepatosplenomegaly Extremities/Musculoskeletal: + Chronic lymphedema with venous stasis. No cyanosis or clubbing, extremities motor strength 5/5 Neurologic: PERRL, EOMI, accommodation nl, no face palsy, no dysarthria, CN's II-XI intact bilaterally and moves all extremities Psychiatric: A+Ox3, euthymic affect Skin: no rashes, normal color, warm/dry Results & Data Results & Data Vital Signs (Past 12 Hours) Vital Signs Temp Pulse Resp BP Pulse Ox O2 Del Method 06/25/24 08:57 81 18 168/100 H 99 Room Air 06/25/24 08:18 80 22 159/103 H 100 Room Air 06/25/24 07:00 80 20 95 Room Air 06/25/24 06:30 89 20 94 06/25/24 06:24 75 18 93 06/25/24 06:12 75 19 93 06/25/24 06:04 78 06/25/24 06:00 157/87 H 06/25/24 05:45 81 17 96 06/25/24 05:31 132/89 06/25/24 05:28 Room Air 06/25/24 05:28 Room Air 06/25/24 05:28 36.7 C 86 13 132/89 97 Room Air Laboratory Results Short CBC 06/25/24 Range/Units 05:39 WBC 10.44 (4.8-10.8) K/ul Hgb 11.4 L (12.0-16.0) g/dl Hct 35.4 L (37.0-47.0) % Plt Count 687 H (130-400) K/uL BMP 06/25/24 05:39 Sodium 140 Potassium 4.0 Chloride 104 Carbon Dioxide 26 BUN 23 Creatinine 0.96 Glucose 85 Calcium 9.5 Liver Function 06/25/24 Range/Units 05:39 Total Bilirubin 0.4 (0.2-1.0) mg/dl AST 15 (13-39) U/L ALT 14 (7-52) U/L Alkaline Phosphatase 83 (34-104) U/L Albumin 3.2 L (3.4-5.0) gm/dl Urine 06/25/24 Range/Units 10:15 Urine Color Yellow Urine Appearance Cloudy A (Clear) Urine pH 6.0 (4.5-7.5) Ur Specific [place] 1.022 (1.000-1.030) Urine Protein 2+ H (Negative) Urine Glucose (UA) Negative (Negative) Diagnostic Findings Chest X-Ray 06/25/24 05:28 EXAM: XR chest 1V portable CLINICAL HISTORY: WEAKNESS JMF TECHNIQUE: An X-ray image of the chest is obtained in 1 AP projection. COMPARISON: Prior study dated 05/28/2024. FINDINGS: Pulmonary Parenchyma: Prominent bronchovascular markings and hilar vessel seen bilaterally. Atelectatic bands seen in the right lower zone. No evidence of consolidation, collapse, or focal opacities. No pulmonary nodules are identified. No evidence of pleural effusion or pleural thickening. Heart and Mediastinum: Cardiomegaly. No mediastinal widening or masses. No hilar or mediastinal lymphadenopathy. Bony Thorax: Bony thorax appears intact without fractures or deformities. Soft Tissues: Soft tissues overlying the chest wall are unremarkable. IMPRESSION: 1. Prominent bronchovascular markings and hilar vessel seen bilaterally. 2. Atelectatic bands seen in the right lower zone. 3. Cardiomegaly. 4. No interval changes. Electronically signed by Annalisa Radford 06-25-2024 08:12 AM Code Status & VTE Plan VTE Prophylaxis Plan VTE Prophylaxis will be ordered: Yes Supervising Physician Co-Signing Physician Notes Patient seen and examined independently. Discussed with above provider. Patient presents to the hospital with generalized weakness. She was recently discharged from [facility] after undergoing rehabilitation for ambulatory dysfunction which is secondary to avascular necrosis of right hip. Patient has not been a candidate for surgery due to history of obesity. Respiratory viral panel is positive for coronavirus infection. Possible UTI; started on Rocephin. PT OT eval; patient would like to go to rehab to gain strength. I have reviewed the advanced practitioner's documentation, and I agree with, and take responsibility for the plan of care I spent a total of 30 minutes coordinating, documenting, and providing care for this patient excluding time spent in the performance of separately billed services. All of the aforementioned completed while collaborating with the assigned advanced practitioner for a full treatment plan (2) HTN (hypertension) Hypertension type: unspecified Qualified Code(s): I10 - Essential (primary) hypertension
[2024-06-25] MEDS: LOSARTAN POTASSIUM 50 MG TAB PO ONE (09:52)
[2024-06-25] MEDS: SPIRONOLACTONE 25 MG TAB PO ONE (09:52)
--- NOTE | 2024-06-25 10:10 | Electrocardiogram Report ---
Test Reason : Blood Pressure : */* mmHG Vent. Rate : 87 BPM Atrial Rate : 87 BPM P-R Int : 210 ms QRS Dur : 100 ms QT Int : 350 ms P-R-T Axes : 12 -41 3 degrees QTcB Int : 421 ms Sinus rhythm with 1st degree A-V block Left axis deviation Moderate voltage criteria for LVH, may be normal variant ( R in aVL ) Cannot rule out Anterior infarct (cited on or before 27-Apr-2022) Abnormal ECG When compared with ECG of 30-May-2024 04:57, No significant change was found Confirmed by Wicho Reese ([id number]) on 06/25/2024 10:10:07 AM Referred By: Confirmed By: Wicho Reese
[2024-06-25 11:04] LABS: Appearance Urine Cloudy (Clear); Bacteria Urine Automated 4+ (None Seen); Bilirubin Urine Negative (Negative); Blood Urine 3+ (Negative); Color Urine Yellow; Glucose Urine UA Negative (Negative); Ketones Urine Trace (Negative); Leukocyte Esterase Urine 3+ (Negative); Nitrite Urine Positive (Negative); Protein Urine 2+ (Negative); RBC Urine Automated >20 /hpf (0-2); Specific Gravity Urine 1.022 (1.000-1.030); Urobilinogen Urine Negative (Negative); WBC Urine Automated >50 /hpf (0-5)
[2024-06-25] MEDS ORDERED: ALUMINUM/MAGNESIUM SUSP 30 ML UDC PO PRN (12:57)
[2024-06-25] MEDS ORDERED: ONDANSETRON INJ 2 MG/ML 2 ML VIAL IV PRN (12:57)
[2024-06-25] MEDS ORDERED: MELATONIN 3 MG TAB PO PRN (12:57)
[2024-06-25] MEDS: cefTRIAXone SODIUM 2,000 MG/50 ML BAG IV SCH (13:00)
[2024-06-25] MEDS: traMADol HCL 50 MG TABLET PO PRN (13:25)
[2024-06-25] MEDS: ENOXAPARIN INJ 40 MG/0.4 ML SYR SQ SCH (15:17)
[2024-06-25] MEDS: ACETAMINOPHEN 500 MG TAB PO PRN (19:50)
[2024-06-25] MEDS: AMMONIUM LACTATE 12% LOTION 225 GM BTL EXT SCH (19:51)
[2024-06-25] MEDS: CeleBREX 200 MG CAP PO SCH (22:43)
--- NOTE | 2024-06-26 07:13 | Hospitalist Progress Note ---
<Statement entered by Calin Rubalcava DO - 06/26/24 12:44> I have seen and examined the patient and have discussed the case with the advance practice provider. I have reviewed the advanced practitioner's documentation, and I agree with, and take responsibility for that plan of care. Patient complains of constipation and some abdominal cramping. Just recently had suppository. Reviewed urinalysis and urine culture, suspect true UTI will treat with Rocephin for 3 days pending sensitivity Pressure ulcer stage II on buttock area noted, present on admission Case management involved to pursue additional rehab facility opportunities I spent a total of 18 minutes coordinating, documenting, and providing care for this patient excluding time spent by another provider/QHP. Date of Service June 26, 2024 Assessment & Plan (1) Generalized weakness: (2) Constipation: (3) Coronavirus infection: (4) Acute UTI: (5) Anemia: Plan Cleo Vasquez is a 63y/o F with PMHx significant for labile hypertension, generalized osteoarthritis of multiple sites on scheduled Tramadol, heart murmur, BLE lymphedema/venous stasis ulcers [follows with [facility]] and history of avascular necrosis of the R hip who presented to the ED via EMS on 06/25/24 due to generalized weakness and inability to get up on her own. Patient was recently admitted under our service from 05/28/24-06/05/24 due to generalized weakness and possible sepsis, although no infectious source was found during extensive workup. She also underwent Lexiscan nuclear stress testing during that admission 2/2 elevated troponin and atypical chest pain which came back negative for inducible ischemia - suggesting noncardiac discomfort. She has significant chronic BLE lymphedema and history of R hip avascular which contribute to her ambulatory difficulties. She was discharged to [facility] for further conditioning following that admission and was discharged back home on 06/24/24. Patient called EMS yesterday as she was unable to get up and ambulate on her own at home therefore prompting readmission. Patient feels she needs further PT/OT for conditioning and is requesting [facility]. Generalized Weakness: Ambulatory dysfunction at baseline 2/2 chronic BLE lymphedema, chronic R hip pain, morbid obesity and osteoarthritis. PT/OT evaluations pending. Fall precautions. Continue prior Tramadol dosing (takes chronically for osteoarthritis pain), PRN Tylenol. Constipation: Endorsing constipation and abdominal pain/cramping this morning. Last BM about 2 days ago. Reports chronic constipation issues - suspect 2/2 Tramadol use. Ordered Dulcolax suppository per patient's request. Adding on scheduled bowel regimen including daily Miralax, Colace BID. If no improvement, would benefit from CTAP. Coronavirus Infection: Respiratory BioFire panel + for Coronavirus OC43. Patient with mild c/o intermittent productive cough but otherwise offers no other complaints. Continues to saturate well on RA. CXR reviewed and w/o evidence of consolidation. Encourage incentive spirometer and flutter valve use. Continue symptomatic support with PRN antitussives, albuterol nebs. Isolation precautions. Acute UTI: No urinary complaints however endorsing generalized weakness as per above. UA on admission with 4+ bacteria/positive nitrites/3+ LE. Slight increase in WBC. Empirically started on IV Rocephin on admission. Urine culture came back positive for E. coli. Suspect true infection. EOT after 3 doses of IV Rocephin [done after 06/27]. Anemia: No prior formal diagnosis of anemia although her Hgb has ranged from 11-12 over past few years. Hgb 10.9 today, no overt sources of bleeding. Likely dilutional component contributing s/p 1L NSS in ED. Continue to trend Hgb. No indication to transfuse at this time. TSH WNL. Will check routine anemia workup with AM labs including iron panel, ferritin and vitamin B12 + folate. Chronic BLE Lymphedema: Follows with [facility] for BLE lymphedema/venous stasis ulcers care. Unable to make f/u appt on 06/23/24 due to still being at [facility]. Inpatient wound care following. HTN: BP stable. Continue losartan 100mg QAM, spironolactone 25mg QAM. Continue to monitor BP. DVT Prophylaxis: SQ Lovenox Code Status: FULL CODE PCP: NITA Galvin Disposition: Admitted in Med/Surg - Requesting placement at [facility] for continued rehab, PT/OT to evaluate. Patient seen in collaboration with Dr. Rubalcava. Please see addendum. I spent a total of 45 minutes coordinating, documenting, and providing care for this patient excluding time spent in the performance of separately billed services or time spent by another provider/QHP. This included personally reviewing all current laboratories and imaging studies, medical reconciliation, outpatient chart review and discussion with specialists. This chart was completed in part utilizing Speech Voice Recognition Software. Grammatical errors, random word insertions, pronoun errors, and incomplete sentences are an occasional consequence of this system due to software limitations, ambient noise, and hardware issues. Any formal questions or concerns about the content, text, or information contained within the body of this dictation should be directly addressed to the provider for clarification. Admission and Anticipated Discharge Date Admission Date: June 25, 2024 Subjective Patient seen and examined at bedside this morning in room E324-1. Endorsing some generalized abdominal pain/cramping this morning 2/2 constipation. Requesting stool softener. Last BM about 2 days ago. Otherwise denies any additional complaints. No SOB or chest pain. Minimal intermittently productive cough x 1 week, no other respiratory symptoms. Tested positive for Coronavirus OC43 on admission. CXR reassuring. Continuing supportive treatment. On IV Rocephin 2/2 positive UA on admission. Denies any urinary symptoms. Still with generalized weakness. Requesting to go to [facility] for further conditioning. Review of Systems Review of Systems: At least ten systems reviewed and negative, except as noted in the subjective section. Physical Exam Physical Exam: General: Obese F, NAD, laying down in bed, pleasant, conversing appropriately. A+Ox3, euthymic affect. HEENT: Normocephalic, atraumatic. Conjunctivae normal. External ear and nose normal, oropharynx normal. Respiratory: Normal respiratory effort, lung sounds decreased throughout 2/2 habitus. No accessory muscle use. Cardiovascular: Regular rate, rhythm, normal peripheral pulses, BLE lymphedema with venous stasis changes. Abdomen/GI: Normal bowel sounds, soft, nondistended, nontender to palpation in all quadrants. Extremities/Musculoskeletal: No cyanosis or clubbing, able to actively move all extremities. Results & Data Results & Data Vital Signs (Past 12 Hours) Vital Signs Temp Pulse Resp BP Pulse Ox O2 Del Method 06/25/24 20:12 37.0 C 91 H 18 127/84 95 Room Air Laboratory Results Short CBC 06/26/24 Range/Units 06:46 WBC 10.94 H (4.8-10.8) K/ul Hgb 10.9 L (12.0-16.0) g/dl Hct 34.8 L (37.0-47.0) % Plt Count 640 H (130-400) K/uL BMP 06/26/24 06:46 Sodium 140 Potassium 4.1 Chloride 107 Carbon Dioxide 25 BUN 13 Creatinine 0.60 D Glucose 99 Calcium 9.1 Diagnostic Findings Chest X-Ray 06/25/24 05:28 EXAM: XR chest 1V portable CLINICAL HISTORY: WEAKNESS JMF TECHNIQUE: An X-ray image of the chest is obtained in 1 AP projection. COMPARISON: Prior study dated 05/28/2024. FINDINGS: Pulmonary Parenchyma: Prominent bronchovascular markings and hilar vessel seen bilaterally. Atelectatic bands seen in the right lower zone. No evidence of consolidation, collapse, or focal opacities. No pulmonary nodules are identified. No evidence of pleural effusion or pleural thickening. Heart and Mediastinum: Cardiomegaly. No mediastinal widening or masses. No hilar or mediastinal lymphadenopathy. Bony Thorax: Bony thorax appears intact without fractures or deformities. Soft Tissues: Soft tissues overlying the chest wall are unremarkable. IMPRESSION: 1. Prominent bronchovascular markings and hilar vessel seen bilaterally. 2. Atelectatic bands seen in the right lower zone. 3. Cardiomegaly. 4. No interval changes. Electronically signed by Annalisa Radford 06-25-2024 08:12 AM (2) Constipation Constipation type: unspecified constipation type Qualified Code(s): K59.00 - Constipation, unspecified (5) Anemia Anemia type: unspecified type Qualified Code(s): D64.9 - Anemia, unspecified
[2024-06-26 07:43] LABS: Hematocrit (blood only) 34.8 % (37.0-47.0); Hemoglobin 10.9 g/dl (12.0-16.0); Mean Corpuscular Hemoglobin 29.7 pg (25.0-34.0); Mean Corpuscular Hgb Conc 31.3 g/dL (32.0-36.0); Mean Corpuscular Volume 94.8 fL (80.0-100.0); Mean Platelet Volume 8.6 fL (9.4-12.4); Platelet Count 640 K/uL (130-400); RDW Coefficient of Variation 12.8 % (11.5-14.5); RDW Standard Deviation 44.9 fL (36.4-46.3); Red Blood Count 3.67 M/uL (4.20-5.40); White Blood Count 10.94 K/ul (4.8-10.8)
[2024-06-26 07:53] LABS: BUN Creatinine Ratio 21.7 (10-20); Calcium 9.1 mg/dl (8.6-10.3); Creatinine Clr Calc Pharmacy 122.1 ml/min; Potassium 4.1 mmol/L (3.5-5.1)
[2024-06-26] MEDS: POLYETHYLENE (MIRALAX) 17 GM PACK PO PRN (08:03)
[2024-06-26] MEDS: MULTIVITAMIN TAB PO SCH (08:04)
[2024-06-26] MEDS: DULoxetine HCL 60 MG CAP PO SCH (08:04)
[2024-06-26] MEDS: LOSARTAN POTASSIUM 50 MG TAB PO SCH (08:04)
[2024-06-26] MEDS: SPIRONOLACTONE 25 MG TAB PO SCH (08:05)
[2024-06-26] MEDS: bisacodyL 10 MG SUPP PR STA (09:32)
[2024-06-26] MEDS ORDERED: ALBUTEROL 0.083% NEBU SOLN 3 ML VIAL NEB PRN (12:05)
[2024-06-26] MEDS: ADVANCED PROBIOTIC 625 MG CAPSULE PO SCH (13:58)
[2024-06-26] MEDS: DOCUSATE SODIUM 100 MG CAP PO SCH (13:59)
[2024-06-26] MEDS: NYSTATIN POWDER 15GM BTL EXT PRN (21:19)
[2024-06-27 07:51] LABS: Hematocrit (blood only) 34.5 % (37.0-47.0); Mean Corpuscular Hemoglobin 29.8 pg (25.0-34.0); Mean Corpuscular Hgb Conc 31.9 g/dL (32.0-36.0); Mean Corpuscular Volume 93.5 fL (80.0-100.0); Mean Platelet Volume 8.5 fL (9.4-12.4); Platelet Count 608 K/uL (130-400); RDW Coefficient of Variation 12.7 % (11.5-14.5); RDW Standard Deviation 43.2 fL (36.4-46.3); Red Blood Count 3.69 M/uL (4.20-5.40); White Blood Count 8.32 K/ul (4.8-10.8)
[2024-06-27 07:59] LABS: BUN Creatinine Ratio 18.3 (10-20); Calcium 9.1 mg/dl (8.6-10.3); Creatinine Clr Calc Pharmacy 122.1 ml/min; Magnesium 1.9 mg/dl (1.7-2.4); Potassium 3.9 mmol/L (3.5-5.1)
[2024-06-27 08:25] LABS: Folate (Folic Acid),Ser orPlas 16.92 ng/ml (>5.38)
[2024-06-27] MEDS: oxyCODONE HCL IR 5 MG TAB (IMMEDIATE RELEASE) PO PRN (09:14)
[2024-06-27] MEDS: POLYETHYLENE (MIRALAX) 17 GM PACK PO SCH (09:15)
--- NOTE | 2024-06-27 09:29 | Hospitalist Progress Note ---
Date of Service June 27, 2024 Assessment & Plan (1) Generalized weakness: (2) Constipation: (3) Coronavirus infection: (4) Acute UTI: (5) Anemia: Plan Cleo Vasquez is a 63y/o F with PMHx significant for labile hypertension, generalized osteoarthritis of multiple sites on scheduled Tramadol, heart murmur, BLE lymphedema/venous stasis ulcers [follows with [facility]] and history of avascular necrosis of the R hip who presented to the ED via EMS on 06/25/24 due to generalized weakness and inability to get up on her own. Patient was recently admitted under our service from 05/28/24-06/05/24 due to generalized weakness and possible sepsis, although no infectious source was found during extensive workup. She also underwent Lexiscan nuclear stress testing during that admission 2/2 elevated troponin and atypical chest pain which came back negative for inducible ischemia - suggesting noncardiac discomfort. She has significant chronic BLE lymphedema and history of R hip avascular which contribute to her ambulatory difficulties. She was discharged to [facility] for further conditioning following that admission and was discharged back home on 06/24/24. Patient called EMS yesterday as she was unable to get up and ambulate on her own at home therefore prompting readmission. Patient feels she needs further PT/OT for conditioning and is requesting [facility]. Generalized Weakness: Ambulatory dysfunction at baseline 2/2 chronic BLE lymphedema, chronic R hip pain, morbid obesity and osteoarthritis. continue PT/OT, awaiting rehab transition tramadol to Oxy IR for short term, add voltaren Constipation: Endorsing constipation and abdominal pain/cramping this morning. Last BM about 2 days ago. Reports chronic constipation issues - suspect 2/2 Tramadol use. Had BM today, continue current regimen, offered to increase miralax or swithc to Senna S but she wishes to continue current regimen Coronavirus Infection: Respiratory BioFire panel + for Coronavirus OC43. Patient with mild c/o intermittent productive cough but otherwise offers no other complaints. supportive/symptomatic care Acute Cystitis/UTI: Urine culture > 100k E. Coli, will complete course of IV rocephin today Anemia: hgb stable, 11, likely chronic iron panel with mild iron deficiency, she may benefit from IV venofer as outpt as oral likely to exacerbate her sx; therefore will avoid starting inpatient Chronic BLE Lymphedema: Stage II pressure ulcer of buttock, POA Follows with [facility] for BLE lymphedema/venous stasis ulcers care. Unable to make f/u appt on 06/23/24 due to still being at [facility]. Inpatient wound care following. HTN: BP stable. Continue losartan 100mg QAM, spironolactone 25mg QAM. Continue to monitor BP. DVT Prophylaxis: SQ Lovenox Code Status: FULL CODE PCP: NITA Galvin Disposition: Admitted in Med/Surg - Requesting placement at [facility] for continued rehab, PT/OT to evaluate. Patient seen in collaboration with Dr. Rubalcava. Please see addendum. I spent a total of [45 minutes coordinating, documenting and providing care for this patient excluding time spent in the performance of separately billed services or time spent by another provider/QHP. Admission and Anticipated Discharge Date Admission Date: June 25, 2024 Subjective Pt seen in room 324. Nurse at bedside, no concerns. Pt reports increased pain to R hip. She states tramadol is not doing anything for her and its limiting her ability to progress. She reports at [facility] she was getting oxycodone which seemed to help her sx more. She has skin breakdown to her gluteal region. She finally moved her bowels today. She reports being more constipated. Review of Systems Review of Systems: All systems reviewed & are unremarkable except as noted in HPI & below Physical Exam Physical Exam: Gen: WD/WN, F, chronically ill appearing, NAD, A&O x3 HEENT: Normocephalic, atraumatic, conjunctivae moist, sclerae anicteric, mucous membranes moist. Lung: Clear to Auscultation bilaterally, no wheezes/rales/rhonchi Heart: Regular rate, regular rhythm, 1/6SEM, rubs, or gallops Abdomen: Soft, NT, ND +BS x 4 Extremities: obese lower extremity, improvement in venous stasis changes Skin: Warm, no rash, negative turgor. : + sacral ulcer stage II b/l buttock Results & Data Results & Data Vital Signs (Past 12 Hours) Vital Signs Temp Pulse Resp BP Pulse Ox O2 Del Method 06/27/24 07:18 36.8 C 79 16 152/80 H 94 Room Air Laboratory Results Short CBC 06/27/24 Range/Units 07:14 WBC 8.32 (4.8-10.8) K/ul Hgb 11.0 L (12.0-16.0) g/dl Hct 34.5 L (37.0-47.0) % Plt Count 608 H (130-400) K/uL BMP 06/27/24 07:14 Sodium 138 Potassium 3.9 Chloride 104 Carbon Dioxide 27 BUN 11 Creatinine 0.60 Glucose 102 H Calcium 9.1 I have independently reviewed and interpreted patient's cbc, bmp, mag, iron panel, b12, folate Medications Administered Current Inpatient Medications Acetaminophen (Acetaminophen 500 Mg Tab) 1,000 mg PO Q8H PRN PRN Reason: pain/fever Stop: 07/25/24 12:56 Last Admin: 06/27/24 09:13 Dose: 1,000 mg Al Hydrox/Mg Hydrox/Simethicone (Aluminum/Magnesium Susp 30 Ml Udc) 30 ml PO Q6H PRN PRN Reason: Dyspepsia Stop: 07/25/24 12:56 Albuterol (Albuterol 0.083% Nebu Soln 3 Ml Vial) 2.5 mg NEB Q6H PRN; Protocol PRN Reason: Shortness Of Breath Or Wheezing Stop: 07/26/24 12:04 Celecoxib (Celebrex 200 Mg Cap) 200 mg PO HS MALINI Stop: 07/25/24 20:59 Last Admin: 06/26/24 21:20 Dose: 200 mg Diclofenac Sodium (Diclofenac Sod 1% Gel 100 Gm Tube) 2 gm EXT TID MALINI; Protocol Stop: 07/27/24 13:59 Diclofenac Sodium (Diclofenac Sod 1% Gel 100 Gm Tube) 4 gm EXT TID [facility]; Protocol Stop: 07/27/24 13:59 Docusate Sodium (Docusate Sodium 100 Mg Cap) 100 mg PO BID [facility] Stop: 07/26/24 11:44 Last Admin: 06/27/24 09:15 Dose: 100 mg Duloxetine HCl (Duloxetine Hcl 60 Mg Cap) 60 mg PO QAM [facility] Stop: 07/26/24 08:59 Last Admin: 06/27/24 09:15 Dose: 60 mg Enoxaparin Sodium (Enoxaparin Inj 40 Mg/0.4 Ml Syr) 40 mg SQ Q24H [facility] Stop: 07/25/24 12:59 Last Admin: 06/26/24 13:59 Dose: 40 mg Ceftriaxone Sodium (Rocephin) 2,000 mg in 50 mls @ 100 mls/hr IV Q24H [facility] Stop: 06/27/24 12:29 Last Infusion: 06/26/24 15:01 Dose: Infused Lactic Acid (Ammonium Lactate 12% Lotion 225 Gm Btl) 1 gm EXT HS [facility] Stop: 07/25/24 20:59 Last Admin: 06/26/24 21:20 Dose: 1 gm Lactobacillus Acidophilus (Advanced Probiotic 625 Mg Capsule) 1,250 mg PO DAILY [facility] Stop: 07/26/24 12:44 Last Admin: 06/27/24 09:14 Dose: 1,250 mg Losartan Potassium (Losartan Potassium 50 Mg Tab) [facility] Stop: 07/26/24 08:59 Last Admin: 06/27/24 09:15 Dose: 100 mg Melatonin (Melatonin 3 Mg Tab) 3 mg PO HS PRN PRN Reason: Insomnia Stop: 07/25/24 12:56 Multivitamins (Multivitamin Tab) 1 [facility] Stop: 07/26/24 08:59 Last Admin: 06/27/24 09:15 Dose: 1 tab Nystatin (Nystatin Powder 15gm Btl) 1 appln EXT BID PRN PRN Reason: Affected Skin Folds Stop: 07/25/24 15:15 Last Admin: 06/26/24 21:19 Dose: 1 appln Ondansetron HCl (Ondansetron Inj 2 Mg/Ml 2 Ml Vial) 4 mg IV Q6H PRN PRN Reason: Nausea Stop: 07/25/24 12:56 Oxycodone HCl (Oxycodone Hcl Ir 5 Mg Tab (Immediate Release)) 5 mg PO Q4H PRN PRN Reason: Mod-Sev Pain (Scale 4-10) Stop: 07/11/24 08:58 Last Admin: 06/27/24 09:14 Dose: 5 mg Polyethylene Glycol (Polyethylene (Miralax) 17 Gm Pack) 17 gm PO DAILY [facility] Stop: 07/27/24 08:59 Last Admin: 06/27/24 09:15 Dose: 17 gm Spironolactone (Spironolactone 25 Mg Tab) 25 mg PO QAM [facility] Stop: 07/26/24 08:59 Last Admin: 06/27/24 09:15 Dose: 25 mg (2) Constipation Constipation type: unspecified constipation type Qualified Code(s): K59.00 - Constipation, unspecified (5) Anemia Anemia type: unspecified type Qualified Code(s): D64.9 - Anemia, unspecified
[2024-06-27] MEDS: DICLOFENAC SOD 1% GEL 100 GM TUBE EXT SCH ×2 (13:37→13:38)
--- NOTE | 2024-06-28 09:56 | Hospitalist Progress Note ---
Date of Service June 28, 2024 Assessment & Plan (1) Generalized weakness: (2) Constipation: (3) Coronavirus infection: (4) Acute UTI: (5) Anemia: Plan Cleo Vasquez is a 63y/o F with PMHx significant for labile hypertension, generalized osteoarthritis of multiple sites on scheduled Tramadol, heart murmur, BLE lymphedema/venous stasis ulcers [follows with [facility]] and history of avascular necrosis of the R hip who presented to the ED via EMS on 06/25/24 due to generalized weakness and inability to get up on her own. Patient was recently admitted under our service from 05/28/24-06/05/24 due to generalized weakness and possible sepsis, although no infectious source was found during extensive workup. She also underwent Lexiscan nuclear stress testing during that admission 2/2 elevated troponin and atypical chest pain which came back negative for inducible ischemia - suggesting noncardiac discomfort. She has significant chronic BLE lymphedema and history of R hip avascular which contribute to her ambulatory difficulties. She was discharged to [facility] for further conditioning following that admission and was discharged back home on 06/24/24. Patient called EMS day of admission as she was unable to get up and ambulate on her own at home therefore prompting readmission. Patient feels she needs further PT/OT for conditioning and is requesting [facility]. Generalized Weakness: Ambulatory dysfunction at baseline 2/2 chronic BLE lymphedema, chronic R hip pain, morbid obesity and osteoarthritis. continue PT/OT, awaiting rehab transition tramadol to Oxy IR for short term, voltaren, Constipation: 2/2 narcotic use and immobility, bowels moving Had BM 2/, continue current regimen, offered to increase miralax or switch to Senna S but she wishes to continue current regimen Coronavirus Infection: Respiratory BioFire panel + for Coronavirus OC43. symptoms resolving Acute Cystitis/UTI: Urine culture > 100k E. Coli, completed course of IV rocephin Anemia: hgb stable, 11, likely chronic iron panel with mild iron deficiency, she may benefit from IV venofer as outpt as oral likely to exacerbate her constipation sx; therefore will avoid starting inpatient Chronic BLE Lymphedema: Stage II pressure ulcer of buttock, POA Follows with [facility] for BLE lymphedema/venous stasis ulcers care. Unable to make f/u appt on 06/23/24 due to still being at [facility]. Inpatient wound care following. HTN: BP stable. Continue losartan 100mg QAM, spironolactone 25mg QAM. Continue to monitor BP. DVT Prophylaxis: SQ Lovenox Code Status: FULL CODE PCP: NITA Galvin Disposition: Medically stable, awaiting rehab at [facility], bed not available to middle of next week I spent a total of 42 minutes coordinating, documenting and providing care for this patient excluding time spent in the performance of separately billed services or time spent by another provider/QHP. Admission and Anticipated Discharge Date Admission Date: June 25, 2024 Subjective Pt seen in room 324. Pt reports NAEO. Denies f/c/s, chest pain, sob, n/v/d. She is tolerating diet. She feels oxy IR is helping pain more than tramadol did. She is having more pain this morning, but hasn't had any pain medication yet. She states she follows with orthopedics at [place]. Plan is for surgical intervention of the R hip eventually, but pt initially was to lose weight. Review of Systems Review of Systems: All systems reviewed & are unremarkable except as noted in HPI & below Physical Exam Physical Exam: Gen: WD/WN, F, chronically ill appearing, NAD, A&O x3 HEENT: Normocephalic, atraumatic, conjunctivae moist, sclerae anicteric, mucous membranes moist. Lung: Clear to Auscultation bilaterally, no wheezes/rales/rhonchi Heart: Regular rate, regular rhythm, 1/6SEM, rubs, or gallops Abdomen: Soft, NT, ND +BS x 4 Extremities: obese lower extremity, venous stasis change R > L pt states chronic and unchanged Skin: Warm, no rash, negative turgor. : + sacral ulcer stage II b/l buttock Results & Data Results & Data Medications Administered Current Inpatient Medications Acetaminophen (Acetaminophen 500 Mg Tab) 1,000 mg PO Q8H PRN PRN Reason: pain/fever Stop: 07/25/24 12:56 Last Admin: 06/28/24 09:04 Dose: 1,000 mg Al Hydrox/Mg Hydrox/Simethicone (Aluminum/Magnesium Susp 30 Ml Udc) 30 ml PO Q6H PRN PRN Reason: Dyspepsia Stop: 07/25/24 12:56 Albuterol (Albuterol 0.083% Nebu Soln 3 Ml Vial) 2.5 mg NEB Q6H PRN; Protocol PRN Reason: Shortness Of Breath Or Wheezing Stop: 07/26/24 12:04 Celecoxib (Celebrex 200 Mg Cap) 200 mg PO HS MALINI Stop: 07/25/24 20:59 Last Admin: 06/27/24 20:57 Dose: 200 mg Diclofenac Sodium (Diclofenac Sod 1% Gel 100 Gm Tube) 2 gm EXT TID MALINI; Protocol Stop: 07/27/24 13:59 Last Admin: 06/28/24 09:03 Dose: 2 gm Diclofenac Sodium (Diclofenac Sod 1% Gel 100 Gm Tube) 4 gm EXT TID [facility]; Protocol Stop: 07/27/24 13:59 Last Admin: 06/28/24 09:04 Dose: 4 gm Docusate Sodium (Docusate Sodium 100 Mg Cap) 100 mg PO BID [facility] Stop: 07/26/24 11:44 Last Admin: 06/28/24 09:05 Dose: 100 mg Duloxetine HCl (Duloxetine Hcl 60 Mg Cap) [facility] Stop: 07/26/24 08:59 Last Admin: 06/28/24 09:05 Dose: 60 mg Enoxaparin Sodium (Enoxaparin Inj 40 Mg/0.4 Ml Syr) 40 mg SQ Q24H [facility] Stop: 07/25/24 12:59 Last Admin: 06/27/24 13:36 Dose: 40 mg Lactic Acid (Ammonium Lactate 12% Lotion 225 Gm Btl) 1 gm EXT HS [facility] Stop: 07/25/24 20:59 Last Admin: 06/27/24 20:46 Dose: 1 gm Lactobacillus Acidophilus (Advanced Probiotic 625 Mg Capsule) 1,250 mg PO DAILY [facility] Stop: 07/26/24 12:44 Last Admin: 06/28/24 09:04 Dose: 1,250 mg Losartan Potassium (Losartan Potassium 50 Mg Tab) 100 mg PO QAM [facility] Stop: 07/26/24 08:59 Last Admin: 06/28/24 09:04 Dose: 100 mg Melatonin (Melatonin 3 Mg Tab) 3 mg PO HS PRN PRN Reason: Insomnia Stop: 07/25/24 12:56 Multivitamins (Multivitamin Tab) 1 tab [facility] Stop: 07/26/24 08:59 Last Admin: 06/28/24 09:05 Dose: 1 tab Nystatin (Nystatin Powder 15gm Btl) 1 appln EXT BID PRN PRN Reason: Affected Skin Folds Stop: 07/25/24 15:15 Last Admin: 06/28/24 09:07 Dose: 1 appln Ondansetron HCl (Ondansetron Inj 2 Mg/Ml 2 Ml Vial) 4 mg IV Q6H PRN PRN Reason: Nausea Stop: 07/25/24 12:56 Oxycodone HCl (Oxycodone Hcl Ir 5 Mg Tab (Immediate Release)) 5 mg PO Q4H PRN PRN Reason: Mod-Sev Pain (Scale 4-10) Stop: 07/11/24 08:58 Last Admin: 06/28/24 09:04 Dose: 5 mg Polyethylene Glycol (Polyethylene (Miralax) 17 Gm Pack) 17 gm PO DAILY [facility] Stop: 07/27/24 08:59 Last Admin: 06/28/24 09:04 Dose: 17 gm Spironolactone (Spironolactone 25 Mg Tab) 25 mg PO QAM [facility] Stop: 07/26/24 08:59 Last Admin: 06/28/24 09:04 Dose: 25 mg (2) Constipation Constipation type: unspecified constipation type Qualified Code(s): K59.00 - Constipation, unspecified (5) Anemia Anemia type: unspecified type Qualified Code(s): D64.9 - Anemia, unspecified
[2024-06-28 19:34] VITALS: RESP 18
[2024-06-29 07:24] VITALS: BP 162/89; PULSE 89; TEMP 98.2; O2SAT 92
--- NOTE | 2024-06-29 09:31 | Hospitalist Progress Note ---
Date of Service June 29, 2024 Assessment & Plan (1) Generalized weakness: (2) Constipation: (3) Coronavirus infection: (4) Acute UTI: (5) Anemia: Plan Cleo Vasquez is a 63y/o F with PMHx significant for labile hypertension, generalized osteoarthritis of multiple sites on scheduled Tramadol, heart murmur, BLE lymphedema/venous stasis ulcers [follows with [facility]] and history of avascular necrosis of the R hip who presented to the ED via EMS on 06/25/24 due to generalized weakness and inability to get up on her own. Patient was recently admitted under our service from 05/28/24-06/05/24 due to generalized weakness and possible sepsis, although no infectious source was found during extensive workup. She also underwent Lexiscan nuclear stress testing during that admission 2/2 elevated troponin and atypical chest pain which came back negative for inducible ischemia - suggesting noncardiac discomfort. She has significant chronic BLE lymphedema and history of R hip avascular which contribute to her ambulatory difficulties. She was discharged to [facility] for further conditioning following that admission and was discharged back home on 06/24/24. Patient called EMS day of admission as she was unable to get up and ambulate on her own at home therefore prompting readmission. Patient feels she needs further PT/OT for conditioning and is requesting [facility]. Generalized Weakness: Ambulatory dysfunction at baseline 2/2 chronic BLE lymphedema, chronic R hip pain, morbid obesity and osteoarthritis. continue PT/OT, awaiting rehab transition tramadol to Oxy IR for short term, voltaren, Constipation: 2/2 narcotic use and immobility, bowels moving Had BM 2/, continue current regimen, offered to increase miralax or switch to Senna S but she wishes to continue current regimen Coronavirus Infection: Respiratory BioFire panel + for Coronavirus OC43. symptoms resolving Acute Cystitis/UTI: Urine culture > 100k E. Coli, completed course of IV rocephin Anemia: hgb stable, 11, likely chronic iron panel with mild iron deficiency, she may benefit from IV venofer as outpt as oral likely to exacerbate her constipation sx; therefore will avoid starting inpatient Chronic BLE Lymphedema: Stage II pressure ulcer of buttock, POA Follows with [facility] for BLE lymphedema/venous stasis ulcers care. Unable to make f/u appt on 06/23/24 due to still being at [facility]. Inpatient wound care following. HTN: BP stable. Continue losartan 100mg QAM, spironolactone 25mg QAM. Continue to monitor BP. DVT Prophylaxis: SQ Lovenox Code Status: FULL CODE PCP: NITA Galvin Disposition: Medically stable, awaiting rehab at [facility], bed not available to middle of next week I spent a total of 42 minutes coordinating, documenting and providing care for this patient excluding time spent in the performance of separately billed services or time spent by another provider/QHP. Admission and Anticipated Discharge Date Admission Date: June 25, 2024 Results & Data Results & Data Vital Signs (Past 12 Hours) Vital Signs Temp Pulse Resp BP Pulse Ox O2 Del Method 06/29/24 07:22 36.8 C 89 18 162/89 H 92 Room Air (2) Constipation Constipation type: unspecified constipation type Qualified Code(s): K59.00 - Constipation, unspecified (5) Anemia Anemia type: unspecified type Qualified Code(s): D64.9 - Anemia, unspecified
--- NOTE | 2024-06-29 12:16 | Discharge Summary ---
<Statement entered by Calin Rubalcava DO - 06/29/24 15:30> I have seen and examined the patient and have discussed the case with the advance practice provider. I have reviewed the advanced practitioner's documentation, and I agree with, and take responsibility for that plan of care. No acute issues overnight. Patient is eager to get started on rehab at [facility]. She offers no specific complaints Discharge plan as outlined below I spent a total of 15 minutes coordinating, documenting, and providing care for this patient excluding time spent by another provider/QHP. Discharge Summary Date of Service June 29, 2024 Principal Dx & Hospital Course #1 = Principal Diagnosis (1) Generalized weakness: (2) Ambulatory dysfunction: (3) Constipation: (4) Coronavirus infection: (5) Acute UTI: (6) Anemia: Plan Cleo Vasquez is a 63y/o F with PMHx significant for labile hypertension, generalized osteoarthritis of multiple sites on scheduled Tramadol, heart murmur, BLE lymphedema/venous stasis ulcers [follows with [facility]] and history of avascular necrosis of the R hip who presented to the ED via EMS on 06/25/24 due to generalized weakness and inability to get up on her own. Generalized Weakness Ambulatory Dysfunction: Patient was recently admitted under our service from 05/28/24-06/05/24 due to generalized weakness and possible sepsis, although no infectious source was found during extensive workup. She also underwent Lexiscan nuclear stress testing during that admission 2/2 elevated troponin and atypical chest pain which came back negative for inducible ischemia - suggesting noncardiac discomfort. She has significant chronic BLE lymphedema and history of R hip avascular which contribute to her baseline ambulatory difficulties. She was discharged to [facility] for further conditioning following that admission and was discharged back home on 06/24/24. Patient was unfortunately unable to get up on her own/ambulate at home following discharge from [facility] and returned back to [facility] on 06/25/24 for readmission to facilitate rehabilitation placement at [facility] - which is where she is being discharged to. Transitioned chronic PRN Tramadol to PRN oxycodone IR for short-term as this provided better pain control ISO generalized osteoarthritis and R hip avascular necrosis. Constipation: Suspect 2/2 chronic narcotic use and immobility. Can continue current bowel regimen on discharge including daily Miralax, Colace BID. Coronavirus Infection: Respiratory BioFire panel + for Coronavirus OC43. Patient with mild c/o intermittent productive cough but otherwise offered no other complaints. CXR reviewed and w/o evidence of consolidation. Cough improving. Did not require supplemental O2 support during admission. Acute UTI: UA on admission with 4+ bacteria/positive nitrites/3+ LE. Urine culture came back positive for E. coli. Suspect true infection in absence of urinary symptomatology. Complete course of IV Rocephin during admission. Anemia: No prior formal diagnosis of anemia although her Hgb has ranged from 11-12 over past few years, likely chronic. Hgb remained stable ~11. Iron panel with mild iron deficiency. She may benefit from IV Venofer as an o/p as po iron supplementation is likely to exacerbate her constipation. Chronic BLE Lymphedema: Follows with [facility] for BLE lymphedema/venous stasis ulcers care. Unable to make f/u appt on 06/23/24 due to still being at [facility]. Inpatient wound care following. HTN: BP stable at time of discharge. Continue losartan 100mg QAM, spironolactone 25mg QAM. PCP: NITA Galvin Disposition: Patient is being discharged to [facility] in stable condition for rehabilitation services. Patient seen in collaboration with Dr. Rubalcava. Please see addendum. I spent a total of 45 minutes coordinating, documenting, and providing care for this patient excluding time spent in the performance of separately billed services or time spent by another provider/QHP. This included personally reviewing all current laboratories and imaging studies, medical reconciliation, outpatient chart review and discussion with specialists. This chart was completed in part utilizing Speech Voice Recognition Software. Grammatical errors, random word insertions, pronoun errors, and incomplete sentences are an occasional consequence of this system due to software limitations, ambient noise, and hardware issues. Any formal questions or concerns about the content, text, or information contained within the body of this dictation should be directly addressed to the provider for clarification. Notes For Next Care Provider Will need PCP f/u appointment within the next 1-2 weeks. Medication Changes From Visit PRN tramadol switched to PRN oxycodone for better pain control ISO chronic pain 2/2 generalized osteoarthritis and R hip avascular necrosis. Admission HPI Per Admitting Provider This is a 63-year-old female with PMH of labile hypertension, generalized osteoarthritis of multiple sites on scheduled Tramadol, heart murmur, bilateral lower extremity lymphedema/venous stasis ulcers (follows with [facility]) and history of avascular necrosis of the right hip who presents with ongoing weakness at home and inability to get up on her own. Patient was recently admitted from for generalized weakness and possible sepsis although no infectious source once workup completed. Also underwent lexiscan nuclear stress test during admission for elevated troponin that was negative for inducible ischemia suggesting noncardiac discomfort. Has significant chronic lymphedema and history of avascular necrosis of R hip that contribute to ambulation difficulties. Was discharged to [facility] for further conditioning and was discharged back home yesterday. Returned home from rehab yesterday and has felt very weak. helps with things around the house but is unable to help lift and transfer patient. She was unable to get out of her lift chair this morning and could not help either, so had to call EMS for help. Only new symptoms since last admission is a cough that she has had intermittently for the past few days. Denies any fever or chills. No lightheadedness, chest pain, shortness of breath, nausea, vomiting, abdominal pain, dysuria, diarrhea or constipation. No change to chronic lower extremity lymphedema/venous stasis ulcers. Was unable to make follow-up appointment at wound clinic on 06/23 due to still being at [facility]. Admission Exam Per Admitting Provider General Appearance: WD/WN, vitals as above, NAD, sitting up in bed, pleasant, conversing easily, morbidly obese Head: normocephalic, atraumatic Eyes: normal inspection, PERRL, conjunctivae normal, anicteric sclerae ENT: external ear and nose normal, oropharynx normal Neck: normal visual inspection, trachea midline, no thyromegaly Respiratory: normal respiratory effort, lungs clear to auscultation, no wheeze, rales, rhonchi. No accessory muscle use Cardiovascular: regular rate, rhythm,normal peripheral pulses Chest: normal inspection of chest Abdomen/GI: normal bowel sounds, soft, nontender, no hepatosplenomegaly Extremities/Musculoskeletal: + Chronic lymphedema with venous stasis. No cyanosis or clubbing, extremities motor strength 5/5 Neurologic: PERRL, EOMI, accommodation nl, no face palsy, no dysarthria, CN's II-XI intact bilaterally and moves all extremities Psychiatric: A+Ox3, euthymic affect Skin: no rashes, normal color, warm/dry Discharge Exam General: Obese F, NAD, laying down in bed, pleasant, conversing appropriately. A+Ox3, euthymic affect. HEENT: Normocephalic, atraumatic. Conjunctivae normal. External ear and nose normal, oropharynx normal. Respiratory: Normal respiratory effort, lung sounds decreased throughout 2/2 habitus. No accessory muscle use. Cardiovascular: Regular rate/rhythm, normal peripheral pulses, BLE lymphedema with venous stasis changes. Abdomen/GI: Normal bowel sounds, soft, nondistended, nontender to palpation in all quadrants. Extremities/Musculoskeletal: No cyanosis or clubbing, able to actively move all extremities. Updated Medication List Medication Instructions Recorded Confirmed Type multivitamin 1 tab PO QAM #30 tabs 05/05/22 06/25/24 Rx celecoxib 200 mg capsule (Celebrex) 200 mg PO HS 04/24/23 06/25/24 History duloxetine 60 mg capsule,delayed 60 mg PO QAM 04/24/23 06/25/24 History release (Cymbalta) krill oil 500 mg capsule 500 mg PO BID 05/28/24 06/25/24 History ammonium lactate 5 % lotion 1 applic EXT HS BLE Venous Stasis 06/05/24 06/25/24 Rx (Lac-Hydrin Five) Changes #226 grams losartan 50 mg tablet 100 mg (2 x 50 mg) PO QAM #30 tabs 06/05/24 06/25/24 Rx spironolactone 25 mg tablet 25 mg PO QAM #30 tabs 06/05/24 06/25/24 Rx tramadol 50 mg tablet 50 mg PO Q4H PRN Generalized 06/05/24 06/25/24 Rx Osteoarthritis Pain #30 tabs oxycodone 1 tab PO UD 06/25/24 06/25/24 History docusate sodium 100 mg capsule 100 mg PO BID #60 caps 06/29/24 Rx oxycodone 5 mg tablet 5 mg PO Q4H PRN Chronic Pain #30 06/29/24 Rx tabs polyethylene glycol 3350 17 gram 17 g PO DAILY #30 ea 06/29/24 Rx oral powder packet (Miralax) Hospital Stay Data Consultations 06/25/24 08:41 ED Decision to Admit Stat Discharge Instructions Given to Patient (Per Discharging Provider) jennyfer Gallo admitted to [facility] with generalized weakness and ambulatory dysfunction. You were found to have an acute urinary tract infection (UTI) as well as coronavirus OC43. You were successfully treated with an IV antibiotic course for your UTI. Your as needed tramadol has been switched to as needed oxycodone to help better control your chronic pain. Please continue to take this medication as prescribed! It is also advised that you continue your scheduled bowel regimen, including daily Miralax and Colace twice a day, as narcotic pain medication (such as oxycodone) can cause constipation. You are being discharged to [facility] for further rehabilitation services. A follow-up appointment with your PCP within the next 1-2 weeks will be scheduled at [facility]. Please take good care of yourself! It has been a pleasure taking care of you. If you have any questions regarding your recent hospitalization please contact [facility] and request Renard Hernandez @ [phone]. Total Time Total Time Spent Total Time Spent (In Minutes): 45
== END 2024-06-29 14:22 | DRG 554 ==
LOC: ED 05:25 → EDINP 09:13 → SUATTDRO 09:13 → 3E 12:30